=== PATIENT | male | born 1960 | race Caucasian/White ===

== ENCOUNTER 2019-01-25 15:55 | Inpatient (IN) | payer MEDICARE, OTHER ==
--- NOTE | 2019-01-25 16:44 | ED Physician Chart ---
ED Chief Complaint/HPI - Patient Information Date Seen:: 01/25/19 Time Seen:: 16:30 Chief Complaint:: ventral hernia History of Present Illness:: Patient had surgery last March in [place], [place] ventral hernia. Few months prior to that he had his first surgery for the hernia. The hernia recurred about 3 weeks ago. He has mild pain present. No vomiting or diarrhea. Allergies:: Allergies Allergy/AdvReac Type Severity Reaction Status Date / Time No Known Allergies Allergy Verified 01/25/19 16:08 Vitals:: Vital Signs - 8 hr 01/25/19 16:11 Temp 98 F HR 77 RR 16 O2 Sat % 97 Historian:: Patient Review:: Nurse's Note Reviewed ED Review of Systems - Review of Systems General/Constitutional: No fever, No chills Skin: No skin lesions Head: No headache Eyes: No loss of vision ENT: No earache Neck: No neck pain Cardio Vascular: No chest pain Pulmonary: No SOB GI: No nausea, No vomiting, No diarrhea, Pain Musculoskeletal: No bone or joint pain Endocrine: No polyuria Psychiatric: No prior psych history Hematopoietic: No bruising Allergic/Immuno: No urticaria ED Past Medical History - Past Medical History Past Medical History: Other (Hepatitis C) Psychiatricy History: None Medication: Reviewed Family Medical History - Family Member Mother History Unknown: Yes ED Physical Exam - Physical Examination General/Constitutional: Awake, Well-developed, well-nourished, Alert, No distress Head: Atraumatic Eyes: Lids, conjuctiva normal, PERRL Other Skin comments:: Supraumbilical pink scar ENMT: External ears, nose nl, TM canals nl, Nasal exam nl, Lips, teeth, gums nl , Oropharynx nl, Tonsils nl Neck: No nuchal rigidity Respiratory: Nl effort/Exclusion Other Respiratory comments:: Harsh prolonged inspiratory/expiratory breath sounds. Cardio Vascular: RRR, No murmur, gallop, rubs Other GI comments:: About 25 cm wide by 10 cm high ventral hernia centered at level umbilicus. : No CVA tenderness Extremities: Normal digits & nails Neuro/Psych: No focal deficits Misc: No paraspinal tenderness ED Labs/Radiology/EKG Results - Lab Results Results: Laboratory Results WBC 3.6 Th/cmm (4.8-10.8) L 01/25/19 17:00 RBC 3.37 Mil/cmm (4.30-5.70) L 01/25/19 17:00 Hgb 7.8 gm/dL (12-16) L* 01/25/19 17:00 Hct 24.3 % (41.0-60) L 01/25/19 17:00 MCV 71.9 fl (80-99) L 01/25/19 17:00 MCH 23.0 pg (26.0-30.0) L 01/25/19 17:00 MCHC Differential 32.0 pg (28.0-36.0) 01/25/19 17:00 RDW 17.6 % (11.5-20.0) 01/25/19 17:00 Plt Count 77 Th/cmm (150-400) L 01/25/19 17:00 MPV 8.0 fl 01/25/19 17:00 Add Manual Diff YES 01/25/19 17:00 PT 12.1 SECONDS (9.5-11.5) H 01/25/19 17:00 INR 1.17 (0.5-1.4) 01/25/19 17:00 PTT (Actin FS) 27.1 SECONDS (26.0-38.0) 01/25/19 17:00 Sodium 138 mEq/L (136-145) 01/25/19 17:00 Potassium 3.7 mEq/L (3.5-5.1) 01/25/19 17:00 Chloride 108 mEq/L (98-107) H 01/25/19 17:00 Carbon Dioxide 24.1 mEq/L (21.0-31.0) 01/25/19 17:00 Anion Gap 9.6 (7.0-16.0) 01/25/19 17:00 BUN 15 mg/dL (7-25) 01/25/19 17:00 Creatinine 0.7 mg/dL (0.7-1.3) 01/25/19 17:00 Est GFR ( Amer) > 60.0 ml/min (>90) 01/25/19 17:00 Est GFR (Non-Af Amer) > 60.0 ml/min 01/25/19 17:00 BUN/Creatinine Ratio 21.4 01/25/19 17:00 Glucose 106 mg/dL (70-105) H 01/25/19 17:00 Calcium 8.8 mg/dL (8.6-10.3) 01/25/19 17:00 Total Bilirubin 0.7 mg/dL (0.3-1.0) 01/25/19 17:00 Direct Bilirubin 0.37 mg/dL (0.0-0.2) H 01/25/19 17:00 AST 40 U/L (13-39) H 01/25/19 17:00 ALT 36 U/L (7-52) 01/25/19 17:00 Alkaline Phosphatase 124 U/L (34-104) H 01/25/19 17:00 Total Protein 6.5 gm/dL (6.0-8.3) 01/25/19 17:00 Albumin 3.3 gm/dL (4.2-5.5) L 01/25/19 17:00 Globulin 3.2 gm/dL 01/25/19 17:00 Albumin/Globulin Ratio 1.0 (1.0-1.8) 01/25/19 17:00 - Radiology Results Results: Respiratory showed cardiomegaly and increased interstitial markings ED Assessment - Assessment General Assessment: Patient's pancytopenia is probably secondary to his hepatitis C with cirrhosis. ED Septic Shock - . Is Septic Shock (SBP<90, OR Lactate>4 mmol\L) present?: No - <6hrs of presentation: Vital Signs: Vital Signs - 8 hr 01/25/19 16:11 Temp 98 F HR 77 RR 16 O2 Sat % 97 ED Reassessment (Disposition) - Reassessment Reassessment Condition:: Unchanged - Diagnosis Diagnosis:: Ventral hernia; pancytopenia; history of hepatitis C; COPD - Patient Disposition Admitted to:: Med/Surg Spoke to:: Miladys Medrano Admitting Medical Physician:: Miladys Medrano Condition at Disposition:: Stable, Unchanged
[2019-01-25 17:10] LABS: BASOPHILE ABSOLUTE 0.3 Th/cumm (0-0.2); EOSINOPHILE ABSOLUTE 0.2 Th/cmm (0.1-0.4); HEMATOCRIT 24.3 % (41.0-60); LYMPHOCYTE ABSOLUTE 0.7 Th/cmm (1.5-3.0); MEAN CELL VOLUME 71.9 fl (80-99); MONOCYTE ABSOLUTE 0.3 Th/cmm (0.3-1.0); NEUTROPHILE ABSOLUTE 2.1 Th/cmm (1.8-8.0); PLATELET COUNT 77 Th/cmm (150-400); RED BLOOD COUNT 3.37 Mil/cmm (4.30-5.70); RED CELL DISTRIBUTION WIDTH 17.6 % (11.5-20.0)
[2019-01-25 17:20] LABS: INR 1.17 (0.5-1.4)
[2019-01-25 17:25] LABS: ALBUMIN 3.3 gm/dL (4.2-5.5); ALKALINE PHOSPHATASE 124 U/L (34-104); ANION GAP 9.6 (7.0-16.0); BILIRUBIN,DIRECT 0.37 mg/dL (0.0-0.2); BILIRUBIN,TOTAL 0.7 mg/dL (0.3-1.0); BUN - UREA NITROGEN 15 mg/dL (7-25); CALCIUM SERUM 8.8 mg/dL (8.6-10.3); CARBON DIOXIDE 24.1 mEq/L (21.0-31.0); CHLORIDE 108 mEq/L (98-107); CREATININE - SERUM 0.7 mg/dL (0.7-1.3); GFR AFRICAN-AMERICAN > 60.0 ml/min (>90); GFR NON AFRICAN-AMERICAN > 60.0 ml/min; GLUCOSE 106 mg/dL (70-105); POTASSIUM SERUM 3.7 mEq/L (3.5-5.1); SGOT 40 U/L (13-39); SGPT/ALT 36 U/L (7-52); SODIUM SERUM 138 mEq/L (136-145); TOTAL PROTEIN,SERUM 6.5 gm/dL (6.0-8.3)
[2019-01-25 17:36] LABS: HEMOGLOBIN 7.8 gm/dL (12-16); WHITE BLOOD COUNT 3.6 Th/cmm (4.8-10.8)
[2019-01-25 18:10] LABS: BASOPHIL 1 % (0-3); EOSINOPHIL 2 % (0-5); LYMPHOCYTE 26 % (20-50); MONOCYTE 8 % (2-10); NEUTROPHILS 63 % (40-80)
[2019-01-25 18:11] LABS: ANISOCYTOSIS 1+; PLATELET ESTIMATE DECREASED PLATELETS (NORMAL); POIKILOCYTOSIS 1+
[2019-01-25] MEDS: D5-0.45NS 1,000 ML IV SCH (20:39)
[2019-01-25 23:39] VITALS: BP 162/87
--- NOTE | 2019-01-25 23:45 | Consultation ---
DATE OF CONSULTATION: 01/25/2019 SURGICAL CONSULTATION TIME: 11:31 p.m. HISTORY OF PRESENT ILLNESS: The patient is a 58-year-old male, reportedly had surgery done last March in [place], [place] for ventral hernia repair with mesh. A few months prior to that, he had his first surgery for the hernia, recurred about 3 weeks ago. He is having mild abdominal pain. He denies any vomiting or diarrhea or constipation or fevers or chills. As part of his workup, he has a large ventral hernia. PAST MEDICAL HISTORY: Significant for hepatitis C, liver cirrhosis with pancytopenia. He has leukopenia, anemia, and thrombocytopenia. His PT is elevated. Surgical consultation is requested by Dr. Medrano regarding the ventral hernias. ALLERGIES: He denies any allergies. REVIEW OF SYSTEMS: He is a poor historian and denies any other review of system issues. He denies any chest pain, shortness of breath or urinary type symptoms. His only complaints are regarding the ventral hernia and some abdominal discomfort. PHYSICAL EXAMINATION: GENERAL: He is 5 feet 11 inches and 160 pounds for a BMI of 22. VITAL SIGNS: He is afebrile. His vital signs are otherwise stable. HEENT AND NECK: Within normal limits. He is disheveled appearing. He has no neck mass, lymphadenopathy, thyromegaly, carotid bruits or JVD. CHEST: Clear to auscultation bilaterally. CARDIOVASCULAR: Regular rhythm and rate. ABDOMEN: Soft. He has a large multilobular ventral hernia. Several adjacent ventral hernias are noted. He has a healed abdominal incision with some crusted debris in the middle. There is no drainage. NEUROVASCULAR AND EXTREMITIES: Otherwise normal. No CVA, flank, or paraspinal tenderness. LABORATORY DATA: His white blood cell count 3.6, H and H is 7.8 and 24, platelet count is 77. His coags: PT is 12.1, INR is 1.17, PTT 27.1. His chloride is 108, glucose 106, total bilirubin 0.7, AST 40, alkaline phosphatase 124, albumin 3.3, lipase 38. MEDICATIONS: Not listed here well. IMPRESSION AND PLAN: The patient with several adjacent ventral hernias with complaints of abdominal pain. His recall of his previous surgeries is very sketchy. He is a poor historian. He has multiple large ventral hernias of the abdomen, they are nontender and reducible. He has no leukocytosis, in fact leukopenia. He has hepatitis C and liver cirrhosis. He is a poor candidate for general anesthesia and surgery and certainly too high risk to perform any type of ventral hernia repair here at [facility] given the limited resources here. I would obtain a CT scan of the abdomen and pelvis to further evaluate and discharge planning, he can certainly follow up in my office as an outpatient to discuss possible surgical options. Because of his liver cirrhosis, probably would recommend a tertiary care center if surgery was to be even entertained. JOB# [id number]
[2019-01-26 05:41] LABS: BASOPHILE ABSOLUTE 0.4 Th/cumm (0-0.2); EOSINOPHILE ABSOLUTE 0.2 Th/cmm (0.1-0.4); HEMATOCRIT 24.9 % (41.0-60); LYMPHOCYTE ABSOLUTE 0.7 Th/cmm (1.5-3.0); MEAN CELL VOLUME 71.9 fl (80-99); MEAN CORPUSCULAR HEMOGLOBIN 22.5 pg (26.0-30.0); MEAN CORPUSCULAR HGB CONC 31.3 pg (28.0-36.0); MONOCYTE ABSOLUTE 0.2 Th/cmm (0.3-1.0); PLATELET COUNT 68 Th/cmm (150-400); RED BLOOD COUNT 3.47 Mil/cmm (4.30-5.70); RED CELL DISTRIBUTION WIDTH 17.5 % (11.5-20.0)
[2019-01-26 05:53] LABS: AMYLASE SERUM 32 U/L (29-103); ANION GAP 9.1 (7.0-16.0); BUN - UREA NITROGEN 12 mg/dL (7-25); CALCIUM SERUM 8.5 mg/dL (8.6-10.3); CHLORIDE 107 mEq/L (98-107); CREATININE - SERUM 0.7 mg/dL (0.7-1.3); GFR AFRICAN-AMERICAN > 60.0 ml/min (>90); GFR NON AFRICAN-AMERICAN > 60.0 ml/min; GLUCOSE 125 mg/dL (70-105); POTASSIUM SERUM 4.1 mEq/L (3.5-5.1); SODIUM SERUM 134 mEq/L (136-145)
[2019-01-26 06:24] LABS: % BASOPHILS 10.7 % (0.0-2.0); HEMOGLOBIN 7.8 gm/dL (12-16); WHITE BLOOD COUNT 3.5 Th/cmm (4.8-10.8)
[2019-01-26 07:51] LABS: BAND NEUTROPHILE 4 % (0-10); BASOPHIL 0 % (0-3); EOSINOPHIL 2 % (0-5); LYMPHOCYTE 24 % (20-50); MONOCYTE 6 % (2-10); NEUTROPHILS 64 % (40-80)
[2019-01-26 07:53] LABS: PLATELET ESTIMATE DECREASED PLATELETS (NORMAL)
--- NOTE | 2019-01-26 08:55 | Diagnostic Imaging Report ---
CT scan abdomen and pelvis without intravenous contrast HISTORY: Ventral hernia, pain Total DLP equals 1111 CTDI equals 20.2 Axial sections were obtained from the xiphoid process down to the pubic symphysis. The heart appears enlarged. Coronary artery and atherosclerotic vascular calcination seen. There is a small amount of diffuse ascites throughout the abdomen and pelvis. The liver exhibits a markedly irregular contour. No focal lesions. The spleen is enlarged. Findings consistent with cirrhosis. No definite focal amenities seen within the pancreas. There is a punctate intraluminal calcification in the gallbladder consistent with cholelithiasis. No focal renal lesions. No hydronephrosis. There is an approximate 4.5 cm defect within the anterior abdominal wall with diastases of the rectus abdominal muscles. Associated herniation of nondilated bowel. No abnormal soft tissue masses seen within the pelvis. Small amount of ascites. Surgical changes seen within the inguinal areas bilaterally. IMPRESSION: 1. Relatively large ventral hernia associated with nondilated bowel. No evidence of obstruction. 2. Irregular hepatic contour with splenomegaly and ascites consistent with changes of cirrhosis 3. Cardiomegaly with coronary artery and atherosclerotic calcification.
--- NOTE | 2019-01-26 09:06 | Diagnostic Imaging Report ---
Portable chest x-ray HISTORY: Cough, preoperative There is a poor inspiration. The heart appears somewhat generous. Generalized accentuation of interstitial markings particularly in the left lung. However, no focal processes are seen. No hilar or mediastinal abnormalities. IMPRESSION: 1. Accentuation of the interstitial lung markings. However, no definite acute focal processes are seen. 2. Suggestion of a somewhat generous heart size.
--- NOTE | 2019-01-26 10:06 | History and Physical ---
History of Present Illness - HPI Chief Complaint: 58 y/o male patient was brought into ER due to Abdominal pain and Cough. HPI: 58 y/o male patient was admitted to [facility] due to Abdominal pain and Cough Patient has history of having Ventral Hernia Repair surgery last March 2018, He also has history of Hepatitis C, Liver Cirrhosis with Pancytopenia, Leukopenia, Anemia, Thrombocytopenia. Patient had an ER assessment and a complete workup was done. Patient had a Chest x-ray done which showed Increasing Interstitial markings. Patient also had a CT scan of the abdomen and pelvis which showed Large ventral hernia, Irregular hepatic contour with splenomegaly and ascites consistent with changes of cirrhosis, Cardiomegaly with coronary artery and atherosclerotic condition. Patient was diagnosed with Ventral Hernia, Pancytopenia, History of Hepatitis C with Cirrhosis and COPD. Patient will have a Surgical consultation and I will follow, treat and monitor patient. Patient will continue current treatment plan as ordered. Vital Signs: Last Vital Signs Temp 97.5 F 01/26/19 07:57 Pulse 68 01/26/19 07:57 Resp 18 01/26/19 08:26 BP 145/87 01/26/19 07:57 Pulse Ox 98 01/26/19 07:57 Past Medical History Cardiovascular: Report: No Pertinent Hx Pulmonary: Report: COPD TRIAL [employer] JUDGE: Report: No Pertinent Hx GI: Report: Other (Abdominal pain, Hx of Ventral hernias.) Psych: Report: No Pertinent Hx Musculoskeletal: Report: Other (Abd. Pain.) Rheumatologic: Report: No pertinent Hx Infectious Disease: Report: No Pertinent Hx Endocrine: Report: No Pertinent Hx Dermatology: Report: No Pertinent Hx - Past Surgical History Past Surgical History: Other (Ventral hernia repair surgery.) Family Medical History - Family Member Mother History Unknown: Yes Social History Smoke: No Alcohol: None Drugs: None Lives: Jail Domestic Violence: Negative Health Maintenance Health Maintenance: Other (Please see chart.) - Medications Home Medications: Home Medication Medication Instructions Recorded Type Albuterol Sulfate 2.5 mg IH Q4H PRN 01/25/19 History Amino Acids/Protein Hydrolys 30 ml PO DAILY 01/25/19 History [Pro-Stat Sugar Free Awc 887 ml] Ascorbic Acid [Vitamin C] 1 tab PO BID 01/25/19 History Folic Acid [Folate*] 1 mg PO DAILY 01/25/19 History Furosemide [Lasix] 40 mg PO BID 01/25/19 History Ibuprofen [Motrin*] 600 mg PO Q6H PRN 01/25/19 History Lactobacillus Rhamnosus GG 1 each PO DAILY 01/25/19 History [Culturelle Kids] Lactulose 30 ml PO BID 01/25/19 History Magnesium Oxide [Mag-Oxide] 400 mg PO DAILY 01/25/19 History Melatonin 6 mg PO HS 01/25/19 History Multivit-Min/Iron Fum/Folic AC 1 tab PO DAILY 01/25/19 History [Olqmc-Npsarcu-Zqtyphkw Tablet] Oxycodone HCl 5 mg PO Q6H PRN 01/25/19 History Pantoprazole Sodium 40 mg PO BID 01/25/19 History Propranolol HCl [Inderal*] 10 mg PO BID 01/25/19 History Spironolactone 50 mg PO DAILY 01/25/19 History Thiamine HCl 100 mg PO DAILY 01/25/19 History Zinc Gluconate 220 mg PO DAILY 01/25/19 History Other Medications: Please see medication reconciliation sheet. - Allergies Allergies/Adverse Reactions: Allergies Allergy/AdvReac Type Severity Reaction Status Date / Time No Known Allergies Allergy Verified 01/25/19 16:08 Review of Systems - Review of Systems Review of Systems: Patient c/o cough and abdominal pain. Constitutional: Report: No Significant Eyes: Report: No Significant ENT: Report: No Significant Respiratory: Report: Cough Cardiovascular: Report: Other (Cardiomegaly.) Gastrointestinal: Report: Abdominal Pain, Other (Hx of Ventral Hernias.) Musculoskeletal: Report: No Significant Skin: Report: No Significant Neurological: Report: No Significant Physical Exam - Physical Exam HEENT: Report: Ears Nose Throat within normal limits Neck: Report: Within normal limits Cardiovascular Systems: Report: +s1/s2 noted Respiratory: Report: Other (Cough.) Abdomen: Report: Tender to palpation, Other (Hx of Ventral Hernias.) Back: Report: Inspection of back is within normal limits. Extremities: Report: Non-tender to palpation. Skin: Report: Color of skin is within normal limits Neuro/Psych: Report: Mood affect is within normal limits - Lab Results All Lab Results last 24 hours: Laboratory Results - last 24 hr 01/25/19 01/25/19 01/25/19 17:00 17:00 17:00 WBC 3.6 L RBC 3.37 L Hgb 7.8 L* Hct 24.3 L MCV 71.9 L MCH 23.0 L MCHC Differential 32.0 RDW 17.6 Plt Count 77 L MPV 8.0 Add Manual Diff YES Band Neutrophils % Basophils % Neutrophils (Manual) 63 Lymphocytes 26 Monocytes 8 Eosinophils 2 Basophils 1 Platelet Estimate DECREASED PLATELETS Poikilocytosis 1+ Anisocytosis 1+ Microcytosis 1+ RBC Morph Micro Appear ABNORMAL PT 12.1 H INR 1.17 PTT (Actin FS) 27.1 Sodium 138 Potassium 3.7 Chloride 108 H Carbon Dioxide 24.1 Anion Gap 9.6 BUN 15 Creatinine 0.7 Est GFR ( Amer) > 60.0 Est GFR (Non-Af Amer) > 60.0 BUN/Creatinine Ratio 21.4 Glucose 106 H Whole Bld Lactic Acid Calcium 8.8 Total Bilirubin 0.7 Direct Bilirubin 0.37 H AST 40 H ALT 36 Alkaline Phosphatase 124 H Total Protein 6.5 Albumin 3.3 L Globulin 3.2 Albumin/Globulin Ratio 1.0 Amylase Lipase TSH Blood Type Antibody Screen Crossmatch 01/25/19 01/25/19 01/25/19 17:00 17:00 20:00 WBC RBC Hgb Hct MCV MCH MCHC Differential RDW Plt Count MPV Add Manual Diff Band Neutrophils % Basophils % Neutrophils (Manual) Lymphocytes Monocytes Eosinophils Basophils Platelet Estimate Poikilocytosis Anisocytosis Microcytosis RBC Morph Micro Appear PT INR PTT (Actin FS) Sodium Potassium Chloride Carbon Dioxide Anion Gap BUN Creatinine Est GFR ( Amer) Est GFR (Non-Af Amer) BUN/Creatinine Ratio Glucose Whole Bld Lactic Acid 0.69 Calcium Total Bilirubin Direct Bilirubin AST ALT Alkaline Phosphatase Total Protein Albumin Globulin Albumin/Globulin Ratio Amylase Lipase 38 TSH Blood Type O NEGATIVE Antibody Screen POSITIVE Crossmatch See Detail 01/26/19 01/26/19 01/26/19 05:30 05:30 05:30 WBC 3.5 L RBC 3.47 L Hgb 7.8 L* Hct 24.9 L MCV 71.9 L MCH 22.5 L MCHC Differential 31.3 RDW 17.5 Plt Count 68 L MPV 8.3 Add Manual Diff YES Band Neutrophils % 4 Basophils % 10.7 H Neutrophils (Manual) 64 Lymphocytes 24 Monocytes 6 Eosinophils 2 Basophils 0 Platelet Estimate DECREASED PLATELETS Poikilocytosis Anisocytosis Microcytosis 3+ RBC Morph Micro Appear PT INR PTT (Actin FS) Sodium 134 L Potassium 4.1 Chloride 107 Carbon Dioxide 22.0 Anion Gap 9.1 BUN 12 Creatinine 0.7 Est GFR ( Amer) > 60.0 Est GFR (Non-Af Amer) > 60.0 BUN/Creatinine Ratio 17.1 Glucose 125 H Whole Bld Lactic Acid Calcium 8.5 L Total Bilirubin Direct Bilirubin AST ALT Alkaline Phosphatase Total Protein Albumin Globulin Albumin/Globulin Ratio Amylase 32 Lipase TSH 0.74 Blood Type Antibody Screen Crossmatch - Assessment Assessment: Ventral Hernia. Pancytopenia. History of Hepatitis C with Cirrhosis. COPD. Leukopenia. Anemia. Thrombocytopenia. - Plan Plan: Continuation of care. Surgical consult. Monitor Labs. Continue present meds as directed. Respiratory treatments and Pulmonary support prn. Supplemental Oxygen prn. Aspiration precaution. Deep suctioning prn. Monitor Diet/Nutritional support. Pain Management. Physical therapy. Occupational therapy. Safety precaution. Supportive care. Fall precaution, frequent nursing rounds, and as needed restraints to prevent fall. Continue collaborating with consulting specialists, case management and nursing team. Will Monitor patient and continue current treatment plan as ordered.
--- NOTE | 2019-01-26 17:33 | Consultation ---
DATE OF CONSULTATION: HEMATOLOGY ONCOLOGY CONSULTATION REFERRING PHYSICIAN: Dr. Medrano. REASON FOR CONSULTATION: Pancytopenia. HISTORY OF PRESENT ILLNESS: The patient is a 58-year-old male with history of hepatitis C and cirrhosis. He presented to the hospital with cough and abdominal pain. He had a history of multiple abdominal hernias and had surgery in the past, he was evaluated by surgeon and underwent CT scan, the report of which is pending. The patient was found to have anemia and undergoing transfusion of 1 unit of packed red blood cells. He denied history of bleeding. PAST MEDICAL HISTORY: COPD and recurrent abdominal pain and hernia. PAST SURGICAL HISTORY: Hernia surgeries. MEDICATIONS AT HOME: OxyContin, pantoprazole, propranolol, Aldactone, thiamine and zinc. PHYSICAL EXAMINATION: GENERAL: The patient is awake, chronically ill looking. VITAL SIGNS: Temperature 98, blood pressure 118/85, pulse 68, respiratory rate 18, saturation 97% on room air. HEENT: No mucosal lesions. NECK: Supple. CHEST: Good air entry with scattered rhonchi. ABDOMEN: Multiple hernias and scars of previous surgery. The hernias are reducible. EXTREMITIES: Unremarkable. LABORATORY DATA: Hemoglobin 7.8, white count 3.5, platelets 68 with 64% neutrophils. INR and PTT are normal. Creatinine 0.7, bilirubin 0.7, albumin 3.3. Amylase and lipase normal. ASSESSMENT: Pancytopenia most likely secondary to chronic hepatitis C and cirrhosis associated with splenomegaly. The CT scan of the abdomen without contrast was noted reporting ____ with splenomegaly and ascites consistent with cirrhosis. I will obtain the anemia workup. The patient was already transfused. He is high risk for bleeding from the GI tract from esophageal or gastric varices or other etiologies. No additional transfusion is needed. The patient is high risk for surgery. Thank you Dr. Medrano for the opportunity to participate in the care of this interesting case with you. JOB# [id number]
[2019-01-26 20:07] LABS: URINE SOURCE RANDOM
[2019-01-26] MEDS ORDERED: ALBUTEROL SULFATE 2.5 MG IH PRN (20:13)
[2019-01-26 20:19] LABS: URINE BILIRUBIN NEGATIVE (NEGATIVE); URINE BLOOD NEGATIVE (NEGATIVE); URINE GLUCOSE (UA) NEGATIVE (NEGATIVE); URINE KETONE NEGATIVE (NEGATIVE); URINE LEUKOCYTE ESTERASE NEGATIVE (NEGATIVE); URINE NITRATE NEGATIVE (NEGATIVE); URINE PH 5.5 (4.6 - 8.0); URINE PROTEIN NEGATIVE (NEGATIVE)
[2019-01-26 20:23] LABS: URINE CLARITY CLEAR (CLEAR); URINE COLOR YELLOW
[2019-01-26 20:24] LABS: URINE MICROSCOPIC INDICATED? YES
[2019-01-26 20:40] LABS: URINE BACTERIA 1+ /hpf (NONE SEEN); URINE EPITHELIAL CELLS NONE SEEN /lpf (FEW); URINE RBC NONE SEEN /hpf (0-5); URINE WBC NONE SEEN /hpf (0-5)
[2019-01-26] MEDS ORDERED: Non-Formulary Item 1 EA (Melatonin [Melatonin] 6 MG) PO SCH (21:00)
--- NOTE | 2019-01-26 23:08 | Progress Notes ---
DATE: 01/26/2019 SURGICAL PROGRESS NOTE TIME: 10:56 p.m. SUBJECTIVE: The patient is resting in bed, comfortably sleeping. No significant abdominal pain through most of the day, passing flatus. PHYSICAL EXAMINATION: GENERAL: He is afebrile. VITAL SIGNS: Otherwise stable. HEENT AND NECK: Within normal limits. CHEST: Clear to auscultation bilaterally. HEART: Regular rhythm and rate. ABDOMEN: Soft. It is nontender. He has multiple ventral hernias that are reducible and nontender. NEUROVASCULAR AND EXTREMITIES: Otherwise normal. LABORATORY DATA: His white blood cell count today is 3.5, H and H is 7.8 and 24.9, and platelet count 68. His sodium is 134, glucose 125. MEDICATIONS: He is on folic acid, Lasix. Started on diet, tolerating this well. His CT abdomen and pelvis performed last night late reveals liver exhibits a markedly irregular contour consistent with liver cirrhosis. Spleen is enlarged. Punctate intraluminal calcifications in the gallbladder consistent with cholelithiasis. A 4.5 cm defect within the anterior abdominal wall with diastasis of the rectus abdominal muscles, associated herniation of nondilated bowel. Small amount of ascites, surgical changes seen within the inguinal areas bilaterally. Impression, relatively large ventral hernia associated with nondilated bowel. No evidence of obstruction, irregular hepatic contour with splenomegaly and ascites consistent with changes of cirrhosis, cardiomegaly with coronary artery and atherosclerotic calcifications. IMPRESSION AND PLAN: The patient has a longstanding multiple ventral hernias. No obstructive pattern at this time, tolerating p.o. diet. The patient is a very poor candidate for general anesthesia and surgery and especially here at [facility] with very limited resources. No plans for surgery at this time. If the patient desires to have this hernia fixed for symptomatic relief, consideration to going to a large [facility] or tertiary care facility that can handle patients with end-stage liver disease. Advance diet as tolerated and discharge planning is probably reasonable from a surgical standpoint. JOB# [id number]
[2019-01-26] MEDS: D5-0.45NS 1,000 ML IV SCH (23:46)
[2019-01-27] MEDS ORDERED: Albuterol Nebulizer 2.5mg/3mL HHN PRN (07:21)
[2019-01-27 08:18] LABS: HEMATOCRIT 28.7 % (41.0-60); HEMOGLOBIN 9.2 gm/dL (12-16); MEAN CELL VOLUME 72.3 fl (80-99); MEAN CORPUSCULAR HEMOGLOBIN 23.1 pg (26.0-30.0); MEAN CORPUSCULAR HGB CONC 31.9 pg (28.0-36.0); PLATELET COUNT 71 Th/cmm (150-400); RED BLOOD COUNT 3.97 Mil/cmm (4.30-5.70)
[2019-01-27] MEDS: Lactulose 10 Gm/15 mL 30mL UDC PO SCH ×2 (08:57→17:12)
[2019-01-27] MEDS: Lactobacillus Rhamnosus GG 15 Billion CFU CAP.SPRINK PO SCH (08:57)
[2019-01-27] MEDS ORDERED: Non-Formulary Item 1 EA (Amino Acids/Protein Hydrolys [Pro-Stat Awc Liquid] 30 ML) PO SCH (09:00)
[2019-01-27] MEDS ORDERED: LACTOBACILLUS RHAMNOSUS GG PO SCH (09:00)
[2019-01-27] MEDS ORDERED: Non-Formulary Item 1 EA (Lactulose [Lactulose] 30 ML) PO SCH (09:00)
[2019-01-27] MEDS ORDERED: ASCORBIC ACID PO SCH (09:00)
[2019-01-27 09:15] LABS: WHITE BLOOD COUNT 3.7 Th/cmm (4.8-10.8)
[2019-01-27 10:34] LABS: BAND NEUTROPHILE 0 % (0-10); LYMPHOCYTE 21 % (20-50); MONOCYTE 8 % (2-10); NEUTROPHILS 68 % (40-80)
[2019-01-27 10:35] LABS: BASOPHIL 0 % (0-3); EOSINOPHIL 3 % (0-5); PLATELET ESTIMATE DECREASED PLATELETS (NORMAL)
[2019-01-27 13:06] LABS: FOLIC ACID 12.5 ng/mL (>3.0)
--- NOTE | 2019-01-27 16:11 | General Progress Note ---
Objective - Results Result Diagrams: 01/27/19 08:00 01/26/19 05:30 Recent Labs: Laboratory Last Values WBC 3.7 Th/cmm (4.8-10.8) L 01/27/19 08:00 RBC 3.97 Mil/cmm (4.30-5.70) L 01/27/19 08:00 Hgb 9.2 gm/dL (12-16) L 01/27/19 08:00 Hct 28.7 % (41.0-60) L 01/27/19 08:00 MCV 72.3 fl (80-99) L 01/27/19 08:00 MCH 23.1 pg (26.0-30.0) L 01/27/19 08:00 MCHC Differential 31.9 pg (28.0-36.0) 01/27/19 08:00 RDW 18.0 % (11.5-20.0) 01/27/19 08:00 Plt Count 71 Th/cmm (150-400) L 01/27/19 08:00 MPV 8.1 fl 01/27/19 08:00 Add Manual Diff YES 01/27/19 08:00 Neutrophils % ADULT MANAGER 01/27/19 08:00 Band Neutrophils % 0 % (0-10) 01/27/19 08:00 Lymphocytes % ADULT MANAGER 01/27/19 08:00 Monocytes % ADULT MANAGER 01/27/19 08:00 Eosinophils % ADULT MANAGER 01/27/19 08:00 Basophils % ADULT MANAGER 01/27/19 08:00 Neutrophils (Manual) 68 % (40-80) 01/27/19 08:00 Lymphocytes 21 % (20-50) 01/27/19 08:00 Monocytes 8 % (2-10) 01/27/19 08:00 Eosinophils 3 % (0-5) 01/27/19 08:00 Basophils 0 % (0-3) 01/27/19 08:00 Platelet Estimate DECREASED PLATELETS (NORMAL) 01/27/19 08:00 Poikilocytosis 1+ 01/25/19 17:00 Anisocytosis 1+ 01/25/19 17:00 Microcytosis 3+ 01/26/19 05:30 RBC Morph Micro Appear ABNORMAL (NORMAL) 01/25/19 17:00 PT 12.1 SECONDS (9.5-11.5) H 01/25/19 17:00 INR 1.17 (0.5-1.4) 01/25/19 17:00 PTT (Actin FS) 27.1 SECONDS (26.0-38.0) 01/25/19 17:00 Sodium 134 mEq/L (136-145) L 01/26/19 05:30 Potassium 4.1 mEq/L (3.5-5.1) 01/26/19 05:30 Chloride 107 mEq/L (98-107) 01/26/19 05:30 Carbon Dioxide 22.0 mEq/L (21.0-31.0) 01/26/19 05:30 Anion Gap 9.1 (7.0-16.0) 01/26/19 05:30 BUN 12 mg/dL (7-25) 01/26/19 05:30 Creatinine 0.7 mg/dL (0.7-1.3) 01/26/19 05:30 Est GFR ( Amer) > 60.0 ml/min (>90) 01/26/19 05:30 Est GFR (Non-Af Amer) > 60.0 ml/min 01/26/19 05:30 BUN/Creatinine Ratio 17.1 01/26/19 05:30 Glucose 125 mg/dL (70-105) H 01/26/19 05:30 Whole Bld Lactic Acid 0.69 mmol/L (0.60-1.99) 01/25/19 17:00 Calcium 8.5 mg/dL (8.6-10.3) L 01/26/19 05:30 Ferritin 8 ng/mL (30-400) L 01/26/19 15:00 Total Bilirubin 0.7 mg/dL (0.3-1.0) 01/25/19 17:00 Direct Bilirubin 0.37 mg/dL (0.0-0.2) H 01/25/19 17:00 AST 40 U/L (13-39) H 01/25/19 17:00 ALT 36 U/L (7-52) 01/25/19 17:00 Alkaline Phosphatase 124 U/L (34-104) H 01/25/19 17:00 Total Protein 6.5 gm/dL (6.0-8.3) 01/25/19 17:00 Albumin 3.3 gm/dL (4.2-5.5) L 01/25/19 17:00 Globulin 3.2 gm/dL 01/25/19 17:00 Albumin/Globulin Ratio 1.0 (1.0-1.8) 01/25/19 17:00 Amylase 32 U/L (29-103) 01/26/19 05:30 Lipase 38 U/L (11-82) 01/25/19 17:00 Vitamin B12 1189 pg/mL (232-1245) 01/26/19 15:00 Folic Acid 12.5 ng/mL (>3.0) 01/26/19 15:00 TSH 0.74 uIU/ml (0.34-5.60) 01/26/19 05:30 Urine Source RANDOM 01/26/19 19:00 Urine Color YELLOW 01/26/19 19:00 Urine Clarity CLEAR (CLEAR) 01/26/19 19:00 Urine pH 5.5 (4.6 - 8.0) 01/26/19 19:00 Ur Specific [place] 1.020 (1.005-1.030) 01/26/19 19:00 Urine Protein NEGATIVE mg/dL (NEGATIVE) 01/26/19 19:00 Urine Glucose (UA) NEGATIVE mg/dL (NEGATIVE) 01/26/19 19:00 Urine Ketones NEGATIVE mg/dL (NEGATIVE) 01/26/19 19:00 Urine Blood NEGATIVE (NEGATIVE) 01/26/19 19:00 Urine Nitrate NEGATIVE (NEGATIVE) 01/26/19 19:00 Urine Bilirubin NEGATIVE (NEGATIVE) 01/26/19 19:00 Urine Urobilinogen 1.0 E.U./dL (0.2 - 1.0) 01/26/19 19:00 Ur Leukocyte Esterase NEGATIVE (NEGATIVE) 01/26/19 19:00 Urine RBC NONE SEEN /hpf (0-5) 01/26/19 19:00 Urine WBC NONE SEEN /hpf (0-5) 01/26/19 19:00 Ur Epithelial Cells NONE SEEN /lpf (FEW) 01/26/19 19:00 Urine Bacteria 1+ /hpf (NONE SEEN) H 01/26/19 19:00 Blood Type O NEGATIVE 01/25/19 20:00 Antibody Screen POSITIVE 01/25/19 20:00 Antibody Identification Anti-D 01/25/19 20:00 Crossmatch See Detail 01/25/19 20:00 - Physical Exam Vitals and I&O: Vital Signs Temp 97.8 F 01/27/19 12:00 Pulse 76 01/27/19 12:00 Resp 17 01/27/19 12:00 BP 134/80 01/27/19 12:00 Pulse Ox 99 01/27/19 12:00 Intake & Output 01/26/19 01/27/19 01/27/19 18:59 06:59 18:59 Intake Total 1200 400 Output Total 1550 Balance 1200 -1150 Weight (lbs) 80.286 kg 80.286 kg Intake: Intake, IV Amount 1000 D5-0.45NS 1,000 ml @ 50 1000 mls/hr IV .Q20H [facility] Rx#: [id number] Oral 200 400 Output: Urine 1550 Other: # Voids 1 # Bowel Movements 1 Weight Source Bedscale Bedscale Active Medications: Current Medications Albuterol Sulfate (Albuterol 2.5mg/3ml Neb Ud) 2.5 mg HHN Q4HRT PRN PRN Reason: Shortness of Breath Stop: 03/28/19 07:20 Ascorbic Acid (Vitamin C) 500 mg PO BID [facility] Stop: 03/28/19 08:59 Last Admin: 01/27/19 08:57 Dose: 500 mg Folic Acid (Folate) 1 mg PO DAILY [facility] Stop: 03/28/19 08:59 Last Admin: 01/27/19 08:57 Dose: 1 mg Furosemide (Lasix) 40 mg PO BID [facility] Stop: 03/28/19 08:59 Last Admin: 01/27/19 08:57 Dose: 40 mg Dextrose/Sodium Chloride (D5-0.45ns) 1,000 mls @ 50 mls/hr IV .Q20H [facility] Stop: 03/26/19 19:53 Last Admin: 01/26/19 23:46 Dose: 50 mls/hr Ibuprofen (Motrin) 600 mg PO Q6H PRN PRN Reason: Pain (Mild) Stop: 03/27/19 20:12 Lactobacillus Rhamnosus (Culturelle 15b) 1 each PO DAILY [facility] Stop: 03/28/19 08:59 Last Admin: 01/27/19 08:57 Dose: 1 each Lactulose (Cephulac) 20 gm PO BID [facility] Stop: 03/28/19 08:59 Last Admin: 01/27/19 08:57 Dose: 20 gm Magnesium Oxide (Mag-Oxide) 400 mg PO DAILY [facility] Stop: 03/28/19 08:59 Last Admin: 01/27/19 08:58 Dose: 400 mg Morphine Sulfate (Morphine) 1 mg IVP Q4HR PRN PRN Reason: Pain (Moderate) Stop: 03/26/19 23:58 Assessment/Plan - Assessment Assessment: Ventral Hernia. Pancytopenia. History of Hepatitis C with Cirrhosis. COPD. Leukopenia. Anemia. Thrombocytopenia. - Plan Plan: Continuation of care. Surgical consult. Monitor Labs. Continue present meds as directed. Respiratory treatments and Pulmonary support prn. Supplemental Oxygen prn. Aspiration precaution. Deep suctioning prn. Monitor Diet/Nutritional support. Pain Management. Physical therapy. Occupational therapy. Safety precaution. Supportive care. Fall precaution, frequent nursing rounds, and as needed restraints to prevent fall. Continue collaborating with consulting specialists, case management and nursing team. Will Monitor patient and continue current treatment plan as ordered. Nutritional Asmnt/Malnutr-PDOC - Dietary Evaluation Malnutrition Findings (Please click <Entered> for more info): Nutritional Asmnt/Malnutrition Start: 01/26/19 14: 50 Text: Status: Complete Freq: Protocol: Document 01/26/19 14:50 SKYLAR (Rec: 01/26/19 14:53 SKYLAR [email or web address]) Nutritional Asmnt/Malnutrition Patient General Information Nutritional Screening High Risk Diagnosis Pancytopenia, ventral hernia Pertinent Medical Hx/Surgical Hx Hepatitis C, Liver Cirrhosis with Pancytopenia, Leukopenia, Anemia, Thrombocytopenia Subjective Information Pt is a 58-year-old male admitted on 01/25 c/o abdominal pain and cough. Pt had surgery for ventral hernia last March 2018. Pt is currently on NPO status since 01/26 midnight d/t Abdomen CT scan. Per [facility] [place], NPO status may remain for today and waiting for blood transfusion today. Unable to assess usual diet at home since Pt was sleeping at time of visit. Per H&P Report, CT scan showed large ventral hernia, irregular hepatic contour with splenomegaly and ascites consistent with changes of cirrhosis, cardiomegaly with coronary artery and atherosclerotic condition. HT: 511 WT: 177 LB (80.45 kg) BMI: 24.68 (Normal) GI: Ventral Hernia, Abdominal pain, soft, Non-Tender, Large, Round, Distended, Ascitic BM: Not noted I/O: 250/1 (249) Skin: WNL, Warm, Dry, Elastic, Intact, Scar on abdomen, past ventral hernia repair Jet: 20 Diet Order: NPO Estimated Energy Needs: (Adult , CBW) 6849-4812 kcals (25-30 kcals/ kg) 64-80 g Pro (0.8-1.0 g/kg) 7731-5781 ml (25-30 ml/kg) Current Diet Order/ Nutrition Support NPO Pertinent Medications D5-0.45ns 1000mls @50mls/hr IV Q20H Pertinent Labs 01/26: Hgb/Hct 7.8/24.9, Na 134, Glucose 125, Ca 8.5 01/25: Hgb/Hct 7.8/24.3, Cl 108, Glucose 106, Alb 3.3 Nutritional Hx/Data Height 1.8 m Height (Calculated Centimeters) 180.3 Current Weight (lbs) 80.286 kg Weight (Calculated Kilograms) 80.3 Weight (Calculated Grams) 47029.8 [place] Body Weight 75.3 kg % [place] Body Weight 106 Body Mass Index (BMI) 24.7 Weight Status Approriate GI Symptoms GI Symptoms None Last BM Not noted Skin Integrity/Comment: WNL, Warm, Dry, Elastic, Intact, Scar on abdomen, past ventral hernia repair Jet: 20 Estimated Nutritional Goals BEE in Kcals: Using Current wt Calories/Kcals/Kg 25-30 Kcals Calculated 0127-4272 Protein: Using Current wt Protein g/k.8-1.0 Protein Calculated 64-80 Fluid: ml 5570-1631 ml (25-30 ml/kg) Nutritional Problem 1. Problem Problem Inadequate energy intake Etiology r/t Abdomen CT scan and pending result Signs/Symptoms: aeb NPO status. Malnutrition Related to Morbid Obesity Malnutrition related to morbid obesity No Intervention/Recommendation Comments 1.Continue with NPO status as medically appropriate. Expected Outcomes/Goals Expected Outcomes/Goals 1.Monitor on NPO status, wt, nutrition related labs, and skin integrity. 2.F/U as high risk in 2-3 days , 01/28-01/29 Physician Parameters for PEM Normal Weight % 90% - 110% (Normal)
[2019-01-27 17:11] LABS: IRON LC 16 ug/dL (38-169); TIBC (LC) 358 ug/dL (250-450); UIBC 342 ug/dL (111-343)
[2019-01-27] MEDS: D5-0.45NS 1,000 ML IV SCH (17:14)
--- NOTE | 2019-01-27 18:44 | Internal Medicine Prog Note ---
Internal Medicine Subjective - Subjective Service Date: 01/27/19 Patient seen and examined:: with staff Patient is:: awake, verbal Patient Complaints of:: other (ventral hernia.) Per staff patient has:: no adverse event, no episodes of fall Internal Medicine Objective - Results Result Diagrams: 01/27/19 08:00 01/26/19 05:30 Recent Labs: Laboratory Last Values WBC 3.7 Th/cmm (4.8-10.8) L 01/27/19 08:00 RBC 3.97 Mil/cmm (4.30-5.70) L 01/27/19 08:00 Hgb 9.2 gm/dL (12-16) L 01/27/19 08:00 Hct 28.7 % (41.0-60) L 01/27/19 08:00 MCV 72.3 fl (80-99) L 01/27/19 08:00 MCH 23.1 pg (26.0-30.0) L 01/27/19 08:00 MCHC Differential 31.9 pg (28.0-36.0) 01/27/19 08:00 RDW 18.0 % (11.5-20.0) 01/27/19 08:00 Plt Count 71 Th/cmm (150-400) L 01/27/19 08:00 MPV 8.1 fl 01/27/19 08:00 Add Manual Diff YES 01/27/19 08:00 Neutrophils % NETWORK DESIGNER 01/27/19 08:00 Band Neutrophils % 0 % (0-10) 01/27/19 08:00 Lymphocytes % NETWORK DESIGNER 01/27/19 08:00 Monocytes % NETWORK DESIGNER 01/27/19 08:00 Eosinophils % NETWORK DESIGNER 01/27/19 08:00 Basophils % NETWORK DESIGNER 01/27/19 08:00 Neutrophils (Manual) 68 % (40-80) 01/27/19 08:00 Lymphocytes 21 % (20-50) 01/27/19 08:00 Monocytes 8 % (2-10) 01/27/19 08:00 Eosinophils 3 % (0-5) 01/27/19 08:00 Basophils 0 % (0-3) 01/27/19 08:00 Platelet Estimate DECREASED PLATELETS (NORMAL) 01/27/19 08:00 Poikilocytosis 1+ 01/25/19 17:00 Anisocytosis 1+ 01/25/19 17:00 Microcytosis 3+ 01/26/19 05:30 RBC Morph Micro Appear ABNORMAL (NORMAL) 01/25/19 17:00 PT 12.1 SECONDS (9.5-11.5) H 01/25/19 17:00 INR 1.17 (0.5-1.4) 01/25/19 17:00 PTT (Actin FS) 27.1 SECONDS (26.0-38.0) 01/25/19 17:00 Sodium 134 mEq/L (136-145) L 01/26/19 05:30 Potassium 4.1 mEq/L (3.5-5.1) 01/26/19 05:30 Chloride 107 mEq/L (98-107) 01/26/19 05:30 Carbon Dioxide 22.0 mEq/L (21.0-31.0) 01/26/19 05:30 Anion Gap 9.1 (7.0-16.0) 01/26/19 05:30 BUN 12 mg/dL (7-25) 01/26/19 05:30 Creatinine 0.7 mg/dL (0.7-1.3) 01/26/19 05:30 Est GFR ( Amer) > 60.0 ml/min (>90) 01/26/19 05:30 Est GFR (Non-Af Amer) > 60.0 ml/min 01/26/19 05:30 BUN/Creatinine Ratio 17.1 01/26/19 05:30 Glucose 125 mg/dL (70-105) H 01/26/19 05:30 Whole Bld Lactic Acid 0.69 mmol/L (0.60-1.99) 01/25/19 17:00 Calcium 8.5 mg/dL (8.6-10.3) L 01/26/19 05:30 Iron 16 ug/dL (38-169) L 01/26/19 15:00 TIBC 358 ug/dL (250-450) 01/26/19 15:00 Iron Saturation 4 % (15-55) L 01/26/19 15:00 Unsaturated IBC 342 ug/dL (111-343) 01/26/19 15:00 Ferritin 8 ng/mL (30-400) L 01/26/19 15:00 Total Bilirubin 0.7 mg/dL (0.3-1.0) 01/25/19 17:00 Direct Bilirubin 0.37 mg/dL (0.0-0.2) H 01/25/19 17:00 AST 40 U/L (13-39) H 01/25/19 17:00 ALT 36 U/L (7-52) 01/25/19 17:00 Alkaline Phosphatase 124 U/L (34-104) H 01/25/19 17:00 Total Protein 6.5 gm/dL (6.0-8.3) 01/25/19 17:00 Albumin 3.3 gm/dL (4.2-5.5) L 01/25/19 17:00 Globulin 3.2 gm/dL 01/25/19 17:00 Albumin/Globulin Ratio 1.0 (1.0-1.8) 01/25/19 17:00 Amylase 32 U/L (29-103) 01/26/19 05:30 Lipase 38 U/L (11-82) 01/25/19 17:00 Vitamin B12 1189 pg/mL (232-1245) 01/26/19 15:00 Folic Acid 12.5 ng/mL (>3.0) 01/26/19 15:00 TSH 0.74 uIU/ml (0.34-5.60) 01/26/19 05:30 Urine Source RANDOM 01/26/19 19:00 Urine Color YELLOW 01/26/19 19:00 Urine Clarity CLEAR (CLEAR) 01/26/19 19:00 Urine pH 5.5 (4.6 - 8.0) 01/26/19 19:00 Ur Specific [place] 1.020 (1.005-1.030) 01/26/19 19:00 Urine Protein NEGATIVE mg/dL (NEGATIVE) 01/26/19 19:00 Urine Glucose (UA) NEGATIVE mg/dL (NEGATIVE) 01/26/19 19:00 Urine Ketones NEGATIVE mg/dL (NEGATIVE) 01/26/19 19:00 Urine Blood NEGATIVE (NEGATIVE) 01/26/19 19:00 Urine Nitrate NEGATIVE (NEGATIVE) 01/26/19 19:00 Urine Bilirubin NEGATIVE (NEGATIVE) 01/26/19 19:00 Urine Urobilinogen 1.0 E.U./dL (0.2 - 1.0) 01/26/19 19:00 Ur Leukocyte Esterase NEGATIVE (NEGATIVE) 01/26/19 19:00 Urine RBC NONE SEEN /hpf (0-5) 01/26/19 19:00 Urine WBC NONE SEEN /hpf (0-5) 01/26/19 19:00 Ur Epithelial Cells NONE SEEN /lpf (FEW) 01/26/19 19:00 Urine Bacteria 1+ /hpf (NONE SEEN) H 01/26/19 19:00 Blood Type O NEGATIVE 01/25/19 20:00 Antibody Screen POSITIVE 01/25/19 20:00 Antibody Identification Anti-D 01/25/19 20:00 Crossmatch See Detail 01/25/19 20:00 - Physical Exam Vitals and I&O: Vital Signs Temp 97.7 F 01/27/19 16:00 Pulse 82 01/27/19 16:00 Resp 17 01/27/19 16:00 BP 87/55 01/27/19 17:12 Pulse Ox 97 01/27/19 16:00 Intake & Output 01/26/19 01/27/19 01/27/19 18:59 06:59 18:59 Intake Total 1200 400 873.333 Output Total 1550 Balance 1200 -1150 873.333 Weight (lbs) 80.286 kg 80.286 kg Intake: Intake, IV Amount 1000 873.333 D5-0.45NS 1,000 ml @ 50 1000 873.333 mls/hr IV .Q20H [facility] Rx#: [id number] Oral 200 400 Output: Urine 1550 Other: # Voids 1 # Bowel Movements 1 Weight Source Bedscale Bedscale Active Medications: Current Medications Albuterol Sulfate (Albuterol 2.5mg/3ml Neb Ud) 2.5 mg HHN Q4HRT PRN PRN Reason: Shortness of Breath Stop: 03/28/19 07:20 Ascorbic Acid (Vitamin C) 500 mg PO BID [facility] Stop: 03/28/19 08:59 Last Admin: 01/27/19 17:14 Dose: 500 mg Folic Acid (Folate) 1 mg PO DAILY [facility] Stop: 03/28/19 08:59 Last Admin: 01/27/19 08:57 Dose: 1 mg Furosemide (Lasix) 40 mg PO BID [facility] Stop: 03/28/19 08:59 Last Admin: 01/27/19 17:12 Dose: Not Given Dextrose/Sodium Chloride (D5-0.45ns) 1,000 mls @ 50 mls/hr IV .Q20H [facility] Stop: 03/26/19 19:53 Last Admin: 01/27/19 17:14 Dose: 50 mls/hr Ibuprofen (Motrin) 600 mg PO Q6H PRN PRN Reason: Pain (Mild) Stop: 03/27/19 20:12 Lactobacillus Rhamnosus (Culturelle 15b) 1 each PO DAILY [facility] Stop: 03/28/19 08:59 Last Admin: 01/27/19 08:57 Dose: 1 each Lactulose (Cephulac) 20 gm PO BID [facility] Stop: 03/28/19 08:59 Last Admin: 01/27/19 17:12 Dose: 20 gm Magnesium Oxide (Mag-Oxide) 400 mg PO DAILY [facility] Stop: 03/28/19 08:59 Last Admin: 01/27/19 08:58 Dose: 400 mg Morphine Sulfate (Morphine) 1 mg IVP Q4HR PRN PRN Reason: Pain (Moderate) Stop: 03/26/19 23:58 Physical Exam: Patient was admitted with Ventral hernia. General: weak HEENT: NC/AT Neck: Supple Lungs: CTAB Cardiovascular: RRR, Normal S1 Abdomen: tender Extremities: clear Neurological: no change Internal Medicine Assmt/Plan - Assessment Assessment: Ventral Hernia. Pancytopenia. History of Hepatitis C with Cirrhosis. COPD. Leukopenia. Anemia. Thrombocytopenia. - Plan Plan: Continuation of care. Monitor Labs, monitor hemoglobin levels. Continue present meds as directed. Respiratory treatments and Pulmonary support prn. Supplemental Oxygen prn. Aspiration precaution. Deep suctioning prn. Monitor Diet/Nutritional support. Pain Management. Physical therapy. Occupational therapy. Safety precaution. Supportive care. Fall precaution, frequent nursing rounds, and as needed restraints to prevent fall. Continue collaborating with consulting specialists, case management and nursing team. Will Monitor patient and continue current treatment plan as ordered. Nutritional Asmnt/Malnutr-PDOC - Dietary Evaluation Malnutrition Findings (Please click <Entered> for more info): Nutritional Asmnt/Malnutrition Start: 01/26/19 14: 50 Text: Status: Complete Freq: Protocol: Document 01/26/19 14:50 SKYLAR (Rec: 01/26/19 14:53 SKYLAR [id number]) Nutritional Asmnt/Malnutrition Patient General Information Nutritional Screening High Risk Diagnosis Pancytopenia, ventral hernia Pertinent Medical Hx/Surgical Hx Hepatitis C, Liver Cirrhosis with Pancytopenia, Leukopenia, Anemia, Thrombocytopenia Subjective Information Pt is a 58-year-old male admitted on 01/25 c/o abdominal pain and cough. Pt had surgery for ventral hernia last March 2018. Pt is currently on NPO status since 01/26 midnight d/t Abdomen CT scan. Per [facility] [place], NPO status may remain for today and waiting for blood transfusion today. Unable to assess usual diet at home since Pt was sleeping at time of visit. Per H&P Report, CT scan showed large ventral hernia, irregular hepatic contour with splenomegaly and ascites consistent with changes of cirrhosis, cardiomegaly with coronary artery and atherosclerotic condition. HT: 511 WT: 177 LB (80.45 kg) BMI: 24.68 (Normal) GI: Ventral Hernia, Abdominal pain, soft, Non-Tender, Large, Round, Distended, Ascitic BM: Not noted I/O: 250/1 (249) Skin: WNL, Warm, Dry, Elastic, Intact, Scar on abdomen, past ventral hernia repair Jet: 20 Diet Order: NPO Estimated Energy Needs: (Adult , CBW) 2042-4802 kcals (25-30 kcals/ kg) 64-80 g Pro (0.8-1.0 g/kg) 2776-6763 ml (25-30 ml/kg) Current Diet Order/ Nutrition Support NPO Pertinent Medications D5-0.45ns 1000mls @50mls/hr IV Q20H Pertinent Labs 01/26: Hgb/Hct 7.8/24.9, Na 134, Glucose 125, Ca 8.5 01/25: Hgb/Hct 7.8/24.3, Cl 108, Glucose 106, Alb 3.3 Nutritional Hx/Data Height 1.8 m Height (Calculated Centimeters) 180.3 Current Weight (lbs) 80.286 kg Weight (Calculated Kilograms) 80.3 Weight (Calculated Grams) 85313.8 [place] Body Weight 75.3 kg % [place] Body Weight 106 Body Mass Index (BMI) 24.7 Weight Status Approriate GI Symptoms GI Symptoms None Last BM Not noted Skin Integrity/Comment: WNL, Warm, Dry, Elastic, Intact, Scar on abdomen, past ventral hernia repair Jet: 20 Estimated Nutritional Goals BEE in Kcals: Using Current wt Calories/Kcals/Kg 25-30 Kcals Calculated 6009-9389 Protein: Using Current wt Protein g/k.8-1.0 Protein Calculated 64-80 Fluid: ml 0073-6631 ml (25-30 ml/kg) Nutritional Problem 1. Problem Problem Inadequate energy intake Etiology r/t Abdomen CT scan and pending result Signs/Symptoms: aeb NPO status. Malnutrition Related to Morbid Obesity Malnutrition related to morbid obesity No Intervention/Recommendation Comments 1.Continue with NPO status as medically appropriate. Expected Outcomes/Goals Expected Outcomes/Goals 1.Monitor on NPO status, wt, nutrition related labs, and skin integrity. 2.F/U as high risk in 2-3 days , 01/28-01/29 Physician Parameters for PEM Normal Weight % 90% - 110% (Normal)
--- NOTE | 2019-01-27 20:45 | Consultation ---
DATE OF CONSULTATION: 01/27/2019 INPATIENT GASTROINTESTINAL CONSULTATION CONSULTING PHYSICIAN: Dr. Medrano. REASON FOR CONSULTATION: Liver cirrhosis, hepatitis C, anemia. HISTORY OF PRESENT ILLNESS: The patient is a 58-year-old male with past medical history significant for hepatitis C and alcohol-related liver cirrhosis, anemia, pancytopenia, ventral hernia, who was admitted to the hospital from a nursing facility for abdominal pain. The patient notes that his pain is mainly in the area of his ventral hernia and was becoming more acute in nature the day prior to his admission. He did not have any vomiting episodes and denies any hematemesis, melena or hematochezia. The pain in the lower abdomen where the hernia is became so severe that he was transferred to the ER here for further evaluation. Thus far, a CT scan was done that shows a ventral hernia and he has been evaluated by Dr. Ingram of Surgery who reports he is a high risk candidate for any type of surgery. Additionally, the patient has been seen by Dr. Richards for pancytopenia and there is a thought that the cirrhosis and splenomegaly are to blame for these issues. At the current time, the patient reports he is feeling better, less abdominal pain, and is able to tolerate a liquid diet. He thinks that he has had upper endoscopy and colonoscopy done before 1-2 years ago at [facility] in [place]. PAST MEDICAL HISTORY: Liver cirrhosis due to alcoholism and hepatitis C, anemia, ventral hernia. PAST SURGICAL HISTORY: Ventral hernia repair in 2018. FAMILY HISTORY: Noncontributory. SOCIAL HISTORY: The patient does still drink a beer on occasion. He used to be a more heavy drinker. Denies other illicit drugs. ALLERGIES: There are no known drug allergies. REVIEW OF SYSTEMS: A 12-point review of systems was performed with the patient's negative and the pertinent positives mentioned in history of present illness. Specifically, he denies any hematemesis, hematochezia or melena. CURRENT MEDICATIONS: Albuterol, vitamin C, IV fluids, folic acid, furosemide, Motrin, lactobacillus, lactulose, magnesium, morphine as needed. PHYSICAL EXAMINATION: VITAL SIGNS: The blood pressure is 134/80, pulse 76 beats per minute, respiratory rate of 17, temperature 97.8, oxygenation is 99%. GENERAL: The patient is lying on his back. He is alert and oriented x 3. He appears anxious. HEENT: Normocephalic, atraumatic appearing head. Pupils are equal and reactive. Extraocular muscles appear to be intact. Moist mucous membranes. NECK: Supple. No JVD or thyromegaly. CHEST: Clear to auscultation bilaterally. CARDIOVASCULAR: S1, S2 are present, regular rate and rhythm. ABDOMEN: There is a protuberance in the ventral area likely a ventral hernia, which is soft, and not tender to palpation at the current time. EXTREMITIES: 1+ pitting edema bilaterally. Pulses are not present. SKIN: There is no jaundice. LABORATORY DATA: White blood cell count 3.7, hemoglobin 9.2, on admission was 7.8, platelet count is 71. INR is 1.1. Sodium is 134, BUN of 12, creatinine 0.7, total bilirubin 0.7, AST 40, ALT is 36. Lipase 38. IMAGING: An abdomen and pelvis CT scan was done that shows a large ventral hernia with nondilated bowel loops. There is cirrhosis of the liver with a small amount of ascites, cardiomegaly, and coronary artery calcification. IMPRESSION: This is a 58-year-old male with history of alcoholism, hepatitis C causing liver cirrhosis, decompensated by ascites, admitted to the hospital with ventral hernia related abdominal pain and anemia. 1. Ventral hernia related abdominal pain. 2. Anemia. 3. Cirrhosis, decompensated by ascites. 4. Alcoholism and hepatitis C. 5. Pancytopenia. DISCUSSION: In terms of the patient's anemia, there is no overt GI bleeding and I do not think the patient is incurring any rapid blood loss. I think his anemia is probably multifactorial, has some root in his splenomegaly, cirrhosis as well as nutritional deficiencies and chronic disease. He reports of already having upper and lower endoscopy 1-2 years ago at [facility] and we can try to obtain these records. He will be very difficult to do another colonoscopy given the large hernia and I do not think it is necessary if he has already had one, as colon cancer would be of low likelihood in that scenario. He should probably have an upper endoscopy, although in the absence of acute bleeding, we can do this in the outpatient setting when he follows up with a warp tension tester. RECOMMENDATIONS: 1. Try to obtain records from his last EGD and colonoscopy, which he notes were 1 or 2 years ago. 2. No plan for endoscopy now unless he shows any overt bleeding as this is likely chronic anemia. 3. The patient will need outpatient followup, that he may be a candidate for hepatitis C treatment and will need on a nonurgent EGD in the outpatient setting. 4. Can advance diet as tolerated. 5. Management of a ventral hernia as per the surgeon. The patient is at high risk with cirrhosis and likely if he would require surgery should be transferred to tertiary center. Thank you for allowing me to participate in his care. I will continue to follow. [facility]# [id number]
[2019-01-28] MEDS: Lactobacillus Rhamnosus GG 15 Billion CFU CAP.SPRINK PO SCH (08:27)
[2019-01-28] MEDS: Lactulose 10 Gm/15 mL 30mL UDC PO SCH ×2 (08:27→16:20)
[2019-01-28] MEDS: D5-0.45NS 1,000 ML IV SCH (08:28)
--- NOTE | 2019-01-28 11:13 | GI Progress Note ---
Subjective - Review of Systems Service Date: 01/28/19 Subjective: No overnight events GI OBJECTIVE - Results Result Diagrams: 01/27/19 08:00 01/26/19 05:30 Recent Labs: Laboratory Last Values WBC 3.7 Th/cmm (4.8-10.8) L 01/27/19 08:00 RBC 3.97 Mil/cmm (4.30-5.70) L 01/27/19 08:00 Hgb 9.2 gm/dL (12-16) L 01/27/19 08:00 Hct 28.7 % (41.0-60) L 01/27/19 08:00 MCV 72.3 fl (80-99) L 01/27/19 08:00 MCH 23.1 pg (26.0-30.0) L 01/27/19 08:00 MCHC Differential 31.9 pg (28.0-36.0) 01/27/19 08:00 RDW 18.0 % (11.5-20.0) 01/27/19 08:00 Plt Count 71 Th/cmm (150-400) L 01/27/19 08:00 MPV 8.1 fl 01/27/19 08:00 Add Manual Diff YES 01/27/19 08:00 Neutrophils % DAIRY EQUIPMENT INSTALLER 01/27/19 08:00 Band Neutrophils % 0 % (0-10) 01/27/19 08:00 Lymphocytes % DAIRY EQUIPMENT INSTALLER 01/27/19 08:00 Monocytes % DAIRY EQUIPMENT INSTALLER 01/27/19 08:00 Eosinophils % DAIRY EQUIPMENT INSTALLER 01/27/19 08:00 Basophils % DAIRY EQUIPMENT INSTALLER 01/27/19 08:00 Neutrophils (Manual) 68 % (40-80) 01/27/19 08:00 Lymphocytes 21 % (20-50) 01/27/19 08:00 Monocytes 8 % (2-10) 01/27/19 08:00 Eosinophils 3 % (0-5) 01/27/19 08:00 Basophils 0 % (0-3) 01/27/19 08:00 Platelet Estimate DECREASED PLATELETS (NORMAL) 01/27/19 08:00 Poikilocytosis 1+ 01/25/19 17:00 Anisocytosis 1+ 01/25/19 17:00 Microcytosis 3+ 01/26/19 05:30 RBC Morph Micro Appear ABNORMAL (NORMAL) 01/25/19 17:00 PT 12.1 SECONDS (9.5-11.5) H 01/25/19 17:00 INR 1.17 (0.5-1.4) 01/25/19 17:00 PTT (Actin FS) 27.1 SECONDS (26.0-38.0) 01/25/19 17:00 Sodium 134 mEq/L (136-145) L 01/26/19 05:30 Potassium 4.1 mEq/L (3.5-5.1) 01/26/19 05:30 Chloride 107 mEq/L (98-107) 01/26/19 05:30 Carbon Dioxide 22.0 mEq/L (21.0-31.0) 01/26/19 05:30 Anion Gap 9.1 (7.0-16.0) 01/26/19 05:30 BUN 12 mg/dL (7-25) 01/26/19 05:30 Creatinine 0.7 mg/dL (0.7-1.3) 01/26/19 05:30 Est GFR ( Amer) > 60.0 ml/min (>90) 01/26/19 05:30 Est GFR (Non-Af Amer) > 60.0 ml/min 01/26/19 05:30 BUN/Creatinine Ratio 17.1 01/26/19 05:30 Glucose 125 mg/dL (70-105) H 01/26/19 05:30 Whole Bld Lactic Acid 0.69 mmol/L (0.60-1.99) 01/25/19 17:00 Calcium 8.5 mg/dL (8.6-10.3) L 01/26/19 05:30 Iron 16 ug/dL (38-169) L 01/26/19 15:00 TIBC 358 ug/dL (250-450) 01/26/19 15:00 Iron Saturation 4 % (15-55) L 01/26/19 15:00 Unsaturated IBC 342 ug/dL (111-343) 01/26/19 15:00 Ferritin 8 ng/mL (30-400) L 01/26/19 15:00 Total Bilirubin 0.7 mg/dL (0.3-1.0) 01/25/19 17:00 Direct Bilirubin 0.37 mg/dL (0.0-0.2) H 01/25/19 17:00 AST 40 U/L (13-39) H 01/25/19 17:00 ALT 36 U/L (7-52) 01/25/19 17:00 Alkaline Phosphatase 124 U/L (34-104) H 01/25/19 17:00 Total Protein 6.5 gm/dL (6.0-8.3) 01/25/19 17:00 Albumin 3.3 gm/dL (4.2-5.5) L 01/25/19 17:00 Globulin 3.2 gm/dL 01/25/19 17:00 Albumin/Globulin Ratio 1.0 (1.0-1.8) 01/25/19 17:00 Amylase 32 U/L (29-103) 01/26/19 05:30 Lipase 38 U/L (11-82) 01/25/19 17:00 Vitamin B12 1189 pg/mL (232-1245) 01/26/19 15:00 Folic Acid 12.5 ng/mL (>3.0) 01/26/19 15:00 TSH 0.74 uIU/ml (0.34-5.60) 01/26/19 05:30 Urine Source RANDOM 01/26/19 19:00 Urine Color YELLOW 01/26/19 19:00 Urine Clarity CLEAR (CLEAR) 01/26/19 19:00 Urine pH 5.5 (4.6 - 8.0) 01/26/19 19:00 Ur Specific Timbo 1.020 (1.005-1.030) 01/26/19 19:00 Urine Protein NEGATIVE mg/dL (NEGATIVE) 01/26/19 19:00 Urine Glucose (UA) NEGATIVE mg/dL (NEGATIVE) 01/26/19 19:00 Urine Ketones NEGATIVE mg/dL (NEGATIVE) 01/26/19 19:00 Urine Blood NEGATIVE (NEGATIVE) 01/26/19 19:00 Urine Nitrate NEGATIVE (NEGATIVE) 01/26/19 19:00 Urine Bilirubin NEGATIVE (NEGATIVE) 01/26/19 19:00 Urine Urobilinogen 1.0 E.U./dL (0.2 - 1.0) 01/26/19 19:00 Ur Leukocyte Esterase NEGATIVE (NEGATIVE) 01/26/19 19:00 Urine RBC NONE SEEN /hpf (0-5) 01/26/19 19:00 Urine WBC NONE SEEN /hpf (0-5) 01/26/19 19:00 Ur Epithelial Cells NONE SEEN /lpf (FEW) 01/26/19 19:00 Urine Bacteria 1+ /hpf (NONE SEEN) H 01/26/19 19:00 Blood Type O NEGATIVE 01/25/19 20:00 Antibody Screen POSITIVE 01/25/19 20:00 Antibody Identification Anti-D 01/25/19 20:00 Crossmatch See Detail 01/25/19 20:00 - Physical Exam Vitals and I&O: Vital Signs Temp 98.5 F 01/28/19 08:00 Pulse 68 01/28/19 08:00 Resp 18 01/28/19 08:00 BP 162/84 01/28/19 08:28 Pulse Ox 95 01/28/19 08:00 Intake & Output 01/27/19 01/28/19 01/28/19 18:59 06:59 18:59 Intake Total 873.333 360 761.667 Balance 873.333 360 761.667 Weight (lbs) 80.286 kg Intake: Intake, IV Amount 873.333 761.667 D5-0.45NS 1,000 ml @ 50 873.333 761.667 mls/hr IV .Q20H [facility] Rx#: [id number] Oral 360 Other: # Voids 4 Weight Source Bedscale Active Medications: Current Medications Albuterol Sulfate (Albuterol 2.5mg/3ml Neb Ud) 2.5 mg HHN Q4HRT PRN PRN Reason: Shortness of Breath Stop: 03/28/19 07:20 Ascorbic Acid (Vitamin C) 500 mg PO BID GURPREET Stop: 03/28/19 08:59 Last Admin: 01/28/19 08:28 Dose: 500 mg Folic Acid (Folate) 1 mg PO DAILY GURPREET Stop: 03/28/19 08:59 Last Admin: 01/28/19 08:27 Dose: 1 mg Furosemide (Lasix) 40 mg PO BID GURPREET Stop: 03/28/19 08:59 Last Admin: 01/28/19 08:28 Dose: 40 mg Dextrose/Sodium Chloride (D5-0.45ns) 1,000 mls @ 50 mls/hr IV .Q20H GURPREET Stop: 03/26/19 19:53 Last Admin: 01/28/19 08:28 Dose: 50 mls/hr Ibuprofen (Motrin) 600 mg PO Q6H PRN PRN Reason: Pain (Mild) Stop: 03/27/19 20:12 Lactobacillus Rhamnosus (Culturelle 15b) 1 each PO DAILY [facility] Stop: 03/28/19 08:59 Last Admin: 01/28/19 08:27 Dose: 1 each Lactulose (Cephulac) 20 gm PO BID GURPREET Stop: 03/28/19 08:59 Last Admin: 01/28/19 08:27 Dose: 20 gm Magnesium Oxide (Mag-Oxide) 400 mg PO DAILY GURPREET Stop: 03/28/19 08:59 Last Admin: 01/28/19 08:27 Dose: 400 mg Morphine Sulfate (Morphine) 1 mg IVP Q4HR PRN PRN Reason: Pain (Moderate) Stop: 03/26/19 23:58 General: Alert, Oriented x3 Neck: Supple Cardiovascular: Regular rate Abdomen: Bowel sounds, Soft, Other (reducible hernia), no Tender, no Hepatomegaly, no Splenomegaly, no Distended, no Rebound Psych/Mental Status: Mental status NL Assessment/Plan - Assessment Assessment: 58 yo M with HCV and EtOH related cirrhosis, ventral hernia, and anemia # Cirrhosis decompensated by small volume ascites - Not enough ascites for drainage. He will need outpt EGD for variceal screening - low salt diet - US every 6 months - avoid EtOH (he still has beer occasionally) - hepatology followup # Large ventral hernia - not a good surgical candidate as per surgeon. May need eval at tertiary center if the pt really wants an attempt at repair. He is high risk given cirrhosis and ascites # Anemia - no overt or acute bleeding. He had EGD/colo 2 years prior at [facility], and records were requested - we do not need to repeat the endoscopies now unless he has overt bleeding
--- NOTE | 2019-01-28 11:26 | Internal Medicine Prog Note ---
Internal Medicine Subjective - Subjective Service Date: 01/28/19 Patient seen and examined:: with staff Patient is:: awake, verbal, confused Patient Complaints of:: other (ventral hernia.) Per staff patient has:: no adverse event, no episodes of fall Internal Medicine Objective - Results Result Diagrams: 01/27/19 08:00 01/26/19 05:30 Recent Labs: Laboratory Last Values WBC 3.7 Th/cmm (4.8-10.8) L 01/27/19 08:00 RBC 3.97 Mil/cmm (4.30-5.70) L 01/27/19 08:00 Hgb 9.2 gm/dL (12-16) L 01/27/19 08:00 Hct 28.7 % (41.0-60) L 01/27/19 08:00 MCV 72.3 fl (80-99) L 01/27/19 08:00 MCH 23.1 pg (26.0-30.0) L 01/27/19 08:00 MCHC Differential 31.9 pg (28.0-36.0) 01/27/19 08:00 RDW 18.0 % (11.5-20.0) 01/27/19 08:00 Plt Count 71 Th/cmm (150-400) L 01/27/19 08:00 MPV 8.1 fl 01/27/19 08:00 Add Manual Diff YES 01/27/19 08:00 Neutrophils % MUTUEL DEPARTMENT MANAGER 01/27/19 08:00 Band Neutrophils % 0 % (0-10) 01/27/19 08:00 Lymphocytes % MUTUEL DEPARTMENT MANAGER 01/27/19 08:00 Monocytes % MUTUEL DEPARTMENT MANAGER 01/27/19 08:00 Eosinophils % MUTUEL DEPARTMENT MANAGER 01/27/19 08:00 Basophils % MUTUEL DEPARTMENT MANAGER 01/27/19 08:00 Neutrophils (Manual) 68 % (40-80) 01/27/19 08:00 Lymphocytes 21 % (20-50) 01/27/19 08:00 Monocytes 8 % (2-10) 01/27/19 08:00 Eosinophils 3 % (0-5) 01/27/19 08:00 Basophils 0 % (0-3) 01/27/19 08:00 Platelet Estimate DECREASED PLATELETS (NORMAL) 01/27/19 08:00 Poikilocytosis 1+ 01/25/19 17:00 Anisocytosis 1+ 01/25/19 17:00 Microcytosis 3+ 01/26/19 05:30 RBC Morph Micro Appear ABNORMAL (NORMAL) 01/25/19 17:00 PT 12.1 SECONDS (9.5-11.5) H 01/25/19 17:00 INR 1.17 (0.5-1.4) 01/25/19 17:00 PTT (Actin FS) 27.1 SECONDS (26.0-38.0) 01/25/19 17:00 Sodium 134 mEq/L (136-145) L 01/26/19 05:30 Potassium 4.1 mEq/L (3.5-5.1) 01/26/19 05:30 Chloride 107 mEq/L (98-107) 01/26/19 05:30 Carbon Dioxide 22.0 mEq/L (21.0-31.0) 01/26/19 05:30 Anion Gap 9.1 (7.0-16.0) 01/26/19 05:30 BUN 12 mg/dL (7-25) 01/26/19 05:30 Creatinine 0.7 mg/dL (0.7-1.3) 01/26/19 05:30 Est GFR ( Amer) > 60.0 ml/min (>90) 01/26/19 05:30 Est GFR (Non-Af Amer) > 60.0 ml/min 01/26/19 05:30 BUN/Creatinine Ratio 17.1 01/26/19 05:30 Glucose 125 mg/dL (70-105) H 01/26/19 05:30 Whole Bld Lactic Acid 0.69 mmol/L (0.60-1.99) 01/25/19 17:00 Calcium 8.5 mg/dL (8.6-10.3) L 01/26/19 05:30 Iron 16 ug/dL (38-169) L 01/26/19 15:00 TIBC 358 ug/dL (250-450) 01/26/19 15:00 Iron Saturation 4 % (15-55) L 01/26/19 15:00 Unsaturated IBC 342 ug/dL (111-343) 01/26/19 15:00 Ferritin 8 ng/mL (30-400) L 01/26/19 15:00 Total Bilirubin 0.7 mg/dL (0.3-1.0) 01/25/19 17:00 Direct Bilirubin 0.37 mg/dL (0.0-0.2) H 01/25/19 17:00 AST 40 U/L (13-39) H 01/25/19 17:00 ALT 36 U/L (7-52) 01/25/19 17:00 Alkaline Phosphatase 124 U/L (34-104) H 01/25/19 17:00 Total Protein 6.5 gm/dL (6.0-8.3) 01/25/19 17:00 Albumin 3.3 gm/dL (4.2-5.5) L 01/25/19 17:00 Globulin 3.2 gm/dL 01/25/19 17:00 Albumin/Globulin Ratio 1.0 (1.0-1.8) 01/25/19 17:00 Amylase 32 U/L (29-103) 01/26/19 05:30 Lipase 38 U/L (11-82) 01/25/19 17:00 Vitamin B12 1189 pg/mL (232-1245) 01/26/19 15:00 Folic Acid 12.5 ng/mL (>3.0) 01/26/19 15:00 TSH 0.74 uIU/ml (0.34-5.60) 01/26/19 05:30 Urine Source RANDOM 01/26/19 19:00 Urine Color YELLOW 01/26/19 19:00 Urine Clarity CLEAR (CLEAR) 01/26/19 19:00 Urine pH 5.5 (4.6 - 8.0) 01/26/19 19:00 Ur Specific Neal 1.020 (1.005-1.030) 01/26/19 19:00 Urine Protein NEGATIVE mg/dL (NEGATIVE) 01/26/19 19:00 Urine Glucose (UA) NEGATIVE mg/dL (NEGATIVE) 01/26/19 19:00 Urine Ketones NEGATIVE mg/dL (NEGATIVE) 01/26/19 19:00 Urine Blood NEGATIVE (NEGATIVE) 01/26/19 19:00 Urine Nitrate NEGATIVE (NEGATIVE) 01/26/19 19:00 Urine Bilirubin NEGATIVE (NEGATIVE) 01/26/19 19:00 Urine Urobilinogen 1.0 E.U./dL (0.2 - 1.0) 01/26/19 19:00 Ur Leukocyte Esterase NEGATIVE (NEGATIVE) 01/26/19 19:00 Urine RBC NONE SEEN /hpf (0-5) 01/26/19 19:00 Urine WBC NONE SEEN /hpf (0-5) 01/26/19 19:00 Ur Epithelial Cells NONE SEEN /lpf (FEW) 01/26/19 19:00 Urine Bacteria 1+ /hpf (NONE SEEN) H 01/26/19 19:00 Blood Type O NEGATIVE 01/25/19 20:00 Antibody Screen POSITIVE 01/25/19 20:00 Antibody Identification Anti-D 01/25/19 20:00 Crossmatch See Detail 01/25/19 20:00 - Physical Exam Vitals and I&O: Vital Signs Temp 98.5 F 01/28/19 08:00 Pulse 68 01/28/19 08:00 Resp 18 01/28/19 08:00 BP 162/84 01/28/19 08:28 Pulse Ox 95 01/28/19 08:00 Intake & Output 01/27/19 01/28/19 01/28/19 18:59 06:59 18:59 Intake Total 873.333 360 761.667 Balance 873.333 360 761.667 Weight (lbs) 80.286 kg Intake: Intake, IV Amount 873.333 761.667 D5-0.45NS 1,000 ml @ 50 873.333 761.667 mls/hr IV .Q20H [facility] Rx#: [id number] Oral 360 Other: # Voids 4 Weight Source Bedscale Active Medications: Current Medications Albuterol Sulfate (Albuterol 2.5mg/3ml Neb Ud) 2.5 mg HHN Q4HRT PRN PRN Reason: Shortness of Breath Stop: 03/28/19 07:20 Ascorbic Acid (Vitamin C) 500 mg PO BID GURPREET Stop: 03/28/19 08:59 Last Admin: 01/28/19 08:28 Dose: 500 mg Folic Acid (Folate) 1 mg PO DAILY GURPREET Stop: 03/28/19 08:59 Last Admin: 01/28/19 08:27 Dose: 1 mg Furosemide (Lasix) 40 mg PO BID GURPREET Stop: 03/28/19 08:59 Last Admin: 01/28/19 08:28 Dose: 40 mg Dextrose/Sodium Chloride (D5-0.45ns) 1,000 mls @ 50 mls/hr IV .Q20H [facility] Stop: 03/26/19 19:53 Last Admin: 01/28/19 08:28 Dose: 50 mls/hr Ibuprofen (Motrin) 600 mg PO Q6H PRN PRN Reason: Pain (Mild) Stop: 03/27/19 20:12 Lactobacillus Rhamnosus (Culturelle 15b) 1 each PO DAILY [facility] Stop: 03/28/19 08:59 Last Admin: 01/28/19 08:27 Dose: 1 each Lactulose (Cephulac) 20 gm PO BID GURPREET Stop: 03/28/19 08:59 Last Admin: 01/28/19 08:27 Dose: 20 gm Magnesium Oxide (Mag-Oxide) 400 mg PO DAILY [facility] Stop: 03/28/19 08:59 Last Admin: 01/28/19 08:27 Dose: 400 mg Morphine Sulfate (Morphine) 1 mg IVP Q4HR PRN PRN Reason: Pain (Moderate) Stop: 03/26/19 23:58 Physical Exam: Patient was admitted with Ventral hernia. General: weak HEENT: NC/AT Neck: Supple Lungs: CTAB Cardiovascular: RRR, Normal S1 Abdomen: tender Extremities: clear Neurological: no change Internal Medicine Assmt/Plan - Assessment Assessment: Ventral Hernia. Pancytopenia. History of Hepatitis C with Cirrhosis. COPD. Leukopenia. Anemia. Thrombocytopenia. - Plan Plan: Continuation of care. Monitor Labs, monitor hemoglobin levels. Continue present meds as directed. Respiratory treatments and Pulmonary support prn. Supplemental Oxygen prn. Aspiration precaution. Deep suctioning prn. Monitor Diet/Nutritional support. Pain Management. Physical therapy. Occupational therapy. Safety precaution. Supportive care. Fall precaution, frequent nursing rounds, and as needed restraints to prevent fall. Continue collaborating with consulting specialists, case management and nursing team. Will Monitor patient and continue present care management. Nutritional Asmnt/Malnutr-PDOC - Dietary Evaluation Malnutrition Findings (Please click <Entered> for more info): Nutritional Asmnt/Malnutrition Start: 01/26/19 14: 50 Text: Status: Complete Freq: Protocol: Document 01/26/19 14:50 SKYLAR (Rec: 01/26/19 14:53 [email or web address]) Nutritional Asmnt/Malnutrition Patient General Information Nutritional Screening High Risk Diagnosis Pancytopenia, ventral hernia Pertinent Medical Hx/Surgical Hx Hepatitis C, Liver Cirrhosis with Pancytopenia, Leukopenia, Anemia, Thrombocytopenia Subjective Information Pt is a 58-year-old male admitted on 01/25 c/o abdominal pain and cough. Pt had surgery for ventral hernia last March 2018. Pt is currently on NPO status since 01/26 midnight d/t Abdomen CT scan. Per [facility]UR[facility] C[facility], NPO status may remain for today and waiting for blood transfusion today. Unable to assess usual diet at home since Pt was sleeping at time of visit. Per H&P Report, CT scan showed large ventral hernia, irregular hepatic contour with splenomegaly and ascites consistent with changes of cirrhosis, cardiomegaly with coronary artery and atherosclerotic condition. HT: 511 WT: 177 LB (80.45 kg) BMI: 24.68 (Normal) GI: Ventral Hernia, Abdominal pain, soft, Non-Tender, Large, Round, Distended, Ascitic BM: Not noted I/O: 250/1 (249) Skin: WNL, Warm, Dry, Elastic, Intact, Scar on abdomen, past ventral hernia repair Jet: 20 Diet Order: NPO Estimated Energy Needs: (Adult , CBW) 7014-4876 kcals (25-30 kcals/ kg) 64-80 g Pro (0.8-1.0 g/kg) 2388-6448 ml (25-30 ml/kg) Current Diet Order/ Nutrition Support NPO Pertinent Medications D5-0.45ns 1000mls @50mls/hr IV Q20H Pertinent Labs 01/26: Hgb/Hct 7.8/24.9, Na 134, Glucose 125, Ca 8.5 01/25: Hgb/Hct 7.8/24.3, Cl 108, Glucose 106, Alb 3.3 Nutritional Hx/Data Height 1.8 m Height (Calculated Centimeters) 180.3 Current Weight (lbs) 80.286 kg Weight (Calculated Kilograms) 80.3 Weight (Calculated Grams) 27674.8 Almo Body Weight 75.3 kg % Almo Body Weight 106 Body Mass Index (BMI) 24.7 Weight Status Approriate GI Symptoms GI Symptoms None Last BM Not noted Skin Integrity/Comment: WNL, Warm, Dry, Elastic, Intact, Scar on abdomen, past ventral hernia repair Jet: 20 Estimated Nutritional Goals BEE in Kcals: Using Current wt Calories/Kcals/Kg 25-30 Kcals Calculated 5637-1520 Protein: Using Current wt Protein g/k.8-1.0 Protein Calculated 64-80 Fluid: ml 0440-7174 ml (25-30 ml/kg) Nutritional Problem 1. Problem Problem Inadequate energy intake Etiology r/t Abdomen CT scan and pending result Signs/Symptoms: aeb NPO status. Malnutrition Related to Morbid Obesity Malnutrition related to morbid obesity No Intervention/Recommendation Comments 1.Continue with NPO status as medically appropriate. Expected Outcomes/Goals Expected Outcomes/Goals 1.Monitor on NPO status, wt, nutrition related labs, and skin integrity. 2.F/U as high risk in 2-3 days , 01/28-01/29 Physician Parameters for PEM Normal Weight % 90% - 110% (Normal)
--- NOTE | 2019-01-28 18:15 | Progress Notes ---
DATE: 01/28/2019 SURGICAL PROGRESS NOTE TIME: At 2:18 p.m. SUBJECTIVE: The patient is a 58-year-old male followed for ventral hernias and concern for possible ileus versus a partial small-bowel obstruction. OBJECTIVE: GENERAL: Afebrile. Vital signs are otherwise stable. No significant abdominal pain at this time. No vomiting, tolerating p.o. diet. HEENT AND NECK: Within normal limits. He is disheveled appearing. He has no neck mass, lymphadenopathy, carotid bruits, or JVD. CHEST: Clear to auscultation bilaterally. HEART: Regular rhythm and rate. ABDOMEN: He has multiple large ventral hernias of the abdominal but they are wide mouth ventral hernias. They are nontender, reducible. There are no overlying skin changes. NEUROVASCULAR AND EXTREMITIES: Otherwise normal. LABORATORY DATA: His white blood cell count of 3.7, H and H is 9 and 28.7, and platelet count 71. His last Chem-7 was on 01/25/2019, chloride 108, glucose 106, total bilirubin 0.7, AST 40, alkaline phosphatase 124, urine bacteria 1+. MEDICATIONS: The patient is on albuterol, IV fluids, Lasix, lactobacillus, lactulose, magnesium oxide, and morphine. IMPRESSION AND PLAN: The patient is a 58-year-old male. He has got multiple medical problems including end-stage liver disease. He has got pancytopenia, leukopenia, and thrombocytopenia. He has got hepatitis C, COPD. He has got large multiple ventral hernias, but no obstructive GI type symptoms. Discussed with the patient the limitations of the services here at [facility], explained to him that unable to provide surgical services to repair the ventral hernia given his overall medical condition and multiple comorbidities and the limited services here at [facility]. Preferably if he desires to have these ventral hernias repaired, this could possibly be undertaken at a large community hospital or a tertiary care level center; however, his insurance status may be a limiting factor. Advance diet as tolerated. Discharge planning is reasonable. The ventral hernias can be addressed as an outpatient in my opinion. The CT results have been reviewed and discussed in previous notes. JOB# [id number]
--- NOTE | 2019-01-29 09:15 | GI Progress Note ---
Subjective - Review of Systems Service Date: 01/29/19 Subjective: No overnight events GI OBJECTIVE - Results Result Diagrams: 01/27/19 08:00 01/26/19 05:30 Recent Labs: Laboratory Last Values WBC 3.7 Th/cmm (4.8-10.8) L 01/27/19 08:00 RBC 3.97 Mil/cmm (4.30-5.70) L 01/27/19 08:00 Hgb 9.2 gm/dL (12-16) L 01/27/19 08:00 Hct 28.7 % (41.0-60) L 01/27/19 08:00 MCV 72.3 fl (80-99) L 01/27/19 08:00 MCH 23.1 pg (26.0-30.0) L 01/27/19 08:00 MCHC Differential 31.9 pg (28.0-36.0) 01/27/19 08:00 RDW 18.0 % (11.5-20.0) 01/27/19 08:00 Plt Count 71 Th/cmm (150-400) L 01/27/19 08:00 MPV 8.1 fl 01/27/19 08:00 Add Manual Diff YES 01/27/19 08:00 Neutrophils % RELIGIOUS EDUCATOR 01/27/19 08:00 Band Neutrophils % 0 % (0-10) 01/27/19 08:00 Lymphocytes % RELIGIOUS EDUCATOR 01/27/19 08:00 Monocytes % RELIGIOUS EDUCATOR 01/27/19 08:00 Eosinophils % RELIGIOUS EDUCATOR 01/27/19 08:00 Basophils % RELIGIOUS EDUCATOR 01/27/19 08:00 Neutrophils (Manual) 68 % (40-80) 01/27/19 08:00 Lymphocytes 21 % (20-50) 01/27/19 08:00 Monocytes 8 % (2-10) 01/27/19 08:00 Eosinophils 3 % (0-5) 01/27/19 08:00 Basophils 0 % (0-3) 01/27/19 08:00 Platelet Estimate DECREASED PLATELETS (NORMAL) 01/27/19 08:00 Poikilocytosis 1+ 01/25/19 17:00 Anisocytosis 1+ 01/25/19 17:00 Microcytosis 3+ 01/26/19 05:30 RBC Morph Micro Appear ABNORMAL (NORMAL) 01/25/19 17:00 PT 12.1 SECONDS (9.5-11.5) H 01/25/19 17:00 INR 1.17 (0.5-1.4) 01/25/19 17:00 PTT (Actin FS) 27.1 SECONDS (26.0-38.0) 01/25/19 17:00 Sodium 134 mEq/L (136-145) L 01/26/19 05:30 Potassium 4.1 mEq/L (3.5-5.1) 01/26/19 05:30 Chloride 107 mEq/L (98-107) 01/26/19 05:30 Carbon Dioxide 22.0 mEq/L (21.0-31.0) 01/26/19 05:30 Anion Gap 9.1 (7.0-16.0) 01/26/19 05:30 BUN 12 mg/dL (7-25) 01/26/19 05:30 Creatinine 0.7 mg/dL (0.7-1.3) 01/26/19 05:30 Est GFR ( Amer) > 60.0 ml/min (>90) 01/26/19 05:30 Est GFR (Non-Af Amer) > 60.0 ml/min 01/26/19 05:30 BUN/Creatinine Ratio 17.1 01/26/19 05:30 Glucose 125 mg/dL (70-105) H 01/26/19 05:30 Whole Bld Lactic Acid 0.69 mmol/L (0.60-1.99) 01/25/19 17:00 Calcium 8.5 mg/dL (8.6-10.3) L 01/26/19 05:30 Iron 16 ug/dL (38-169) L 01/26/19 15:00 TIBC 358 ug/dL (250-450) 01/26/19 15:00 Iron Saturation 4 % (15-55) L 01/26/19 15:00 Unsaturated IBC 342 ug/dL (111-343) 01/26/19 15:00 Ferritin 8 ng/mL (30-400) L 01/26/19 15:00 Total Bilirubin 0.7 mg/dL (0.3-1.0) 01/25/19 17:00 Direct Bilirubin 0.37 mg/dL (0.0-0.2) H 01/25/19 17:00 AST 40 U/L (13-39) H 01/25/19 17:00 ALT 36 U/L (7-52) 01/25/19 17:00 Alkaline Phosphatase 124 U/L (34-104) H 01/25/19 17:00 Total Protein 6.5 gm/dL (6.0-8.3) 01/25/19 17:00 Albumin 3.3 gm/dL (4.2-5.5) L 01/25/19 17:00 Globulin 3.2 gm/dL 01/25/19 17:00 Albumin/Globulin Ratio 1.0 (1.0-1.8) 01/25/19 17:00 Amylase 32 U/L (29-103) 01/26/19 05:30 Lipase 38 U/L (11-82) 01/25/19 17:00 Vitamin B12 1189 pg/mL (232-1245) 01/26/19 15:00 Folic Acid 12.5 ng/mL (>3.0) 01/26/19 15:00 TSH 0.74 uIU/ml (0.34-5.60) 01/26/19 05:30 Urine Source RANDOM 01/26/19 19:00 Urine Color YELLOW 01/26/19 19:00 Urine Clarity CLEAR (CLEAR) 01/26/19 19:00 Urine pH 5.5 (4.6 - 8.0) 01/26/19 19:00 Ur Specific [place] 1.020 (1.005-1.030) 01/26/19 19:00 Urine Protein NEGATIVE mg/dL (NEGATIVE) 01/26/19 19:00 Urine Glucose (UA) NEGATIVE mg/dL (NEGATIVE) 01/26/19 19:00 Urine Ketones NEGATIVE mg/dL (NEGATIVE) 01/26/19 19:00 Urine Blood NEGATIVE (NEGATIVE) 01/26/19 19:00 Urine Nitrate NEGATIVE (NEGATIVE) 01/26/19 19:00 Urine Bilirubin NEGATIVE (NEGATIVE) 01/26/19 19:00 Urine Urobilinogen 1.0 E.U./dL (0.2 - 1.0) 01/26/19 19:00 Ur Leukocyte Esterase NEGATIVE (NEGATIVE) 01/26/19 19:00 Urine RBC NONE SEEN /hpf (0-5) 01/26/19 19:00 Urine WBC NONE SEEN /hpf (0-5) 01/26/19 19:00 Ur Epithelial Cells NONE SEEN /lpf (FEW) 01/26/19 19:00 Urine Bacteria 1+ /hpf (NONE SEEN) H 01/26/19 19:00 Blood Type O NEGATIVE 01/25/19 20:00 Antibody Screen POSITIVE 01/25/19 20:00 Antibody Identification Anti-D 01/25/19 20:00 Crossmatch See Detail 01/25/19 20:00 - Physical Exam Vitals and I&O: Vital Signs Temp 98.3 F 01/29/19 07:34 Pulse 77 01/29/19 07:34 Resp 20 01/29/19 07:34 BP 144/91 01/29/19 07:34 Pulse Ox 97 01/29/19 07:34 Intake & Output 01/28/19 01/29/19 01/29/19 18:59 06:59 18:59 Intake Total 1161.667 300 Output Total 750 Balance 1161.667 -450 Weight (lbs) 80.286 kg 80.286 kg Intake: Intake, IV Amount 761.667 D5-0.45NS 1,000 ml @ 50 761.667 mls/hr IV .Q[facility] Rx#: [id number] Oral 400 300 Output: Urine 750 Other: # Voids 3 # Bowel Movements 0 Weight Source Bedscale Bedscale Active Medications: Current Medications Albuterol Sulfate (Albuterol 2.5mg/3ml Neb Ud) 2.5 mg HHN Q4HRT PRN PRN Reason: Shortness of Breath Stop: 03/28/19 07:20 Ascorbic Acid (Vitamin C) 500 mg PO BID GURPREET Stop: 03/28/19 08:59 Last Admin: 01/28/19 16:20 Dose: 500 mg Folic Acid (Folate) 1 mg PO DAILY GURPREET Stop: 03/28/19 08:59 Last Admin: 01/28/19 08:27 Dose: 1 mg Furosemide (Lasix) 40 mg PO BID GURPREET Stop: 03/28/19 08:59 Last Admin: 01/28/19 16:20 Dose: 40 mg Dextrose/Sodium Chloride (D5-0.45ns) 1,000 mls @ 50 mls/hr IV .Q20H [facility] Stop: 03/26/19 19:53 Last Admin: 01/28/19 08:28 Dose: 50 mls/hr Ibuprofen (Motrin) 600 mg PO Q6H PRN PRN Reason: Pain (Mild) Stop: 03/27/19 20:12 Lactobacillus Rhamnosus (Culturelle 15b) 1 each PO DAILY [facility] Stop: 03/28/19 08:59 Last Admin: 01/28/19 08:27 Dose: 1 each Lactulose (Cephulac) 20 gm PO BID GURPREET Stop: 03/28/19 08:59 Last Admin: 01/28/19 16:20 Dose: 20 gm Magnesium Oxide (Mag-Oxide) 400 mg PO DAILY GURPREET Stop: 03/28/19 08:59 Last Admin: 01/28/19 08:27 Dose: 400 mg Morphine Sulfate (Morphine) 1 mg IVP Q4HR PRN PRN Reason: Pain (Moderate) Stop: 03/26/19 23:58 General: Alert, Oriented x3 HEENT: Atraumatic Neck: Supple Cardiovascular: Regular rate Abdomen: Bowel sounds, Soft, Other (ventral hernia), no Tender, no Hepatomegaly , no Splenomegaly, no Rebound, no Mass, no Guarding Assessment/Plan - Assessment Assessment: 58 yo M with HCV and EtOH related cirrhosis, ventral hernia, and anemia # Cirrhosis decompensated by small volume ascites - Not enough ascites for drainage. He will need outpt EGD for variceal screening - low salt diet - US every 6 months - avoid EtOH (he still has beer occasionally) - hepatology followup # Large ventral hernia - not a good surgical candidate as per surgeon. May need eval at tertiary center if the pt really wants an attempt at repair. He is high risk given cirrhosis and ascites # Anemia - no overt or acute bleeding. He had EGD/colo 2 years prior at [facility], and records were requested - we do not need to repeat the endoscopies now unless he has overt bleeding - no labs ordered by hospitalist GI to see as needed, please call with questions
[2019-01-29] MEDS: Lactulose 10 Gm/15 mL 30mL UDC PO SCH ×2 (09:46→17:33)
[2019-01-29] MEDS: Lactobacillus Rhamnosus GG 15 Billion CFU CAP.SPRINK PO SCH (09:46)
--- NOTE | 2019-01-29 10:05 | General Progress Note ---
Subjective - Review of Systems Service Date: 01/29/19 Subjective: weak Objective - Results Result Diagrams: 01/27/19 08:00 01/26/19 05:30 Recent Labs: Laboratory Last Values WBC 3.7 Th/cmm (4.8-10.8) L 01/27/19 08:00 RBC 3.97 Mil/cmm (4.30-5.70) L 01/27/19 08:00 Hgb 9.2 gm/dL (12-16) L 01/27/19 08:00 Hct 28.7 % (41.0-60) L 01/27/19 08:00 MCV 72.3 fl (80-99) L 01/27/19 08:00 MCH 23.1 pg (26.0-30.0) L 01/27/19 08:00 MCHC Differential 31.9 pg (28.0-36.0) 01/27/19 08:00 RDW 18.0 % (11.5-20.0) 01/27/19 08:00 Plt Count 71 Th/cmm (150-400) L 01/27/19 08:00 MPV 8.1 fl 01/27/19 08:00 Add Manual Diff YES 01/27/19 08:00 Neutrophils % SCHOOL SOCIAL WORKER 01/27/19 08:00 Band Neutrophils % 0 % (0-10) 01/27/19 08:00 Lymphocytes % SCHOOL SOCIAL WORKER 01/27/19 08:00 Monocytes % SCHOOL SOCIAL WORKER 01/27/19 08:00 Eosinophils % SCHOOL SOCIAL WORKER 01/27/19 08:00 Basophils % SCHOOL SOCIAL WORKER 01/27/19 08:00 Neutrophils (Manual) 68 % (40-80) 01/27/19 08:00 Lymphocytes 21 % (20-50) 01/27/19 08:00 Monocytes 8 % (2-10) 01/27/19 08:00 Eosinophils 3 % (0-5) 01/27/19 08:00 Basophils 0 % (0-3) 01/27/19 08:00 Platelet Estimate DECREASED PLATELETS (NORMAL) 01/27/19 08:00 Poikilocytosis 1+ 01/25/19 17:00 Anisocytosis 1+ 01/25/19 17:00 Microcytosis 3+ 01/26/19 05:30 RBC Morph Micro Appear ABNORMAL (NORMAL) 01/25/19 17:00 PT 12.1 SECONDS (9.5-11.5) H 01/25/19 17:00 INR 1.17 (0.5-1.4) 01/25/19 17:00 PTT (Actin FS) 27.1 SECONDS (26.0-38.0) 01/25/19 17:00 Sodium 134 mEq/L (136-145) L 01/26/19 05:30 Potassium 4.1 mEq/L (3.5-5.1) 01/26/19 05:30 Chloride 107 mEq/L (98-107) 01/26/19 05:30 Carbon Dioxide 22.0 mEq/L (21.0-31.0) 01/26/19 05:30 Anion Gap 9.1 (7.0-16.0) 01/26/19 05:30 BUN 12 mg/dL (7-25) 01/26/19 05:30 Creatinine 0.7 mg/dL (0.7-1.3) 01/26/19 05:30 Est GFR ( Amer) > 60.0 ml/min (>90) 01/26/19 05:30 Est GFR (Non-Af Amer) > 60.0 ml/min 01/26/19 05:30 BUN/Creatinine Ratio 17.1 01/26/19 05:30 Glucose 125 mg/dL (70-105) H 01/26/19 05:30 Whole Bld Lactic Acid 0.69 mmol/L (0.60-1.99) 01/25/19 17:00 Calcium 8.5 mg/dL (8.6-10.3) L 01/26/19 05:30 Iron 16 ug/dL (38-169) L 01/26/19 15:00 TIBC 358 ug/dL (250-450) 01/26/19 15:00 Iron Saturation 4 % (15-55) L 01/26/19 15:00 Unsaturated IBC 342 ug/dL (111-343) 01/26/19 15:00 Ferritin 8 ng/mL (30-400) L 01/26/19 15:00 Total Bilirubin 0.7 mg/dL (0.3-1.0) 01/25/19 17:00 Direct Bilirubin 0.37 mg/dL (0.0-0.2) H 01/25/19 17:00 AST 40 U/L (13-39) H 01/25/19 17:00 ALT 36 U/L (7-52) 01/25/19 17:00 Alkaline Phosphatase 124 U/L (34-104) H 01/25/19 17:00 Total Protein 6.5 gm/dL (6.0-8.3) 01/25/19 17:00 Albumin 3.3 gm/dL (4.2-5.5) L 01/25/19 17:00 Globulin 3.2 gm/dL 01/25/19 17:00 Albumin/Globulin Ratio 1.0 (1.0-1.8) 01/25/19 17:00 Amylase 32 U/L (29-103) 01/26/19 05:30 Lipase 38 U/L (11-82) 01/25/19 17:00 Vitamin B12 1189 pg/mL (232-1245) 01/26/19 15:00 Folic Acid 12.5 ng/mL (>3.0) 01/26/19 15:00 TSH 0.74 uIU/ml (0.34-5.60) 01/26/19 05:30 Urine Source RANDOM 01/26/19 19:00 Urine Color YELLOW 01/26/19 19:00 Urine Clarity CLEAR (CLEAR) 01/26/19 19:00 Urine pH 5.5 (4.6 - 8.0) 01/26/19 19:00 Ur Specific [place] 1.020 (1.005-1.030) 01/26/19 19:00 Urine Protein NEGATIVE mg/dL (NEGATIVE) 01/26/19 19:00 Urine Glucose (UA) NEGATIVE mg/dL (NEGATIVE) 01/26/19 19:00 Urine Ketones NEGATIVE mg/dL (NEGATIVE) 01/26/19 19:00 Urine Blood NEGATIVE (NEGATIVE) 01/26/19 19:00 Urine Nitrate NEGATIVE (NEGATIVE) 01/26/19 19:00 Urine Bilirubin NEGATIVE (NEGATIVE) 01/26/19 19:00 Urine Urobilinogen 1.0 E.U./dL (0.2 - 1.0) 01/26/19 19:00 Ur Leukocyte Esterase NEGATIVE (NEGATIVE) 01/26/19 19:00 Urine RBC NONE SEEN /hpf (0-5) 01/26/19 19:00 Urine WBC NONE SEEN /hpf (0-5) 01/26/19 19:00 Ur Epithelial Cells NONE SEEN /lpf (FEW) 01/26/19 19:00 Urine Bacteria 1+ /hpf (NONE SEEN) H 01/26/19 19:00 Blood Type O NEGATIVE 01/25/19 20:00 Antibody Screen POSITIVE 01/25/19 20:00 Antibody Identification Anti-D 01/25/19 20:00 Crossmatch See Detail 01/25/19 20:00 - Physical Exam Vitals and I&O: Vital Signs Temp 98.3 F 01/29/19 07:34 Pulse 77 01/29/19 07:34 Resp 20 01/29/19 07:34 BP 144/91 01/29/19 09:45 Pulse Ox 97 01/29/19 07:34 Intake & Output 01/28/19 01/29/19 01/29/19 18:59 06:59 18:59 Intake Total 1161.667 300 Output Total 750 Balance 1161.667 -450 Weight (lbs) 80.286 kg 80.286 kg Intake: Intake, IV Amount 761.667 D5-0.45NS 1,000 ml @ 50 761.667 mls/hr IV .Q20H [facility] Rx#: [id number] Oral 400 300 Output: Urine 750 Other: # Voids 3 # Bowel Movements 0 Weight Source Bedscale Bedscale Active Medications: Current Medications Albuterol Sulfate (Albuterol 2.5mg/3ml Neb Ud) 2.5 mg HHN Q4HRT PRN PRN Reason: Shortness of Breath Stop: 03/28/19 07:20 Ascorbic Acid (Vitamin C) 500 mg PO BID [facility]UR[facility] Stop: 03/28/19 08:59 Last Admin: 01/29/19 09:45 Dose: 500 mg Folic Acid (Folate) 1 mg PO DAILY [facility] Stop: 03/28/19 08:59 Last Admin: 01/29/19 09:46 Dose: 1 mg Furosemide (Lasix) 40 mg PO BID GUR[facility] Stop: 03/28/19 08:59 Last Admin: 01/29/19 09:45 Dose: 40 mg Dextrose/Sodium Chloride (D5-0.45ns) 1,000 mls @ 50 mls/hr IV .Q20H [facility] Stop: 03/26/19 19:53 Last Admin: 01/28/19 08:28 Dose: 50 mls/hr Ferric Sodium Gluconate Complex 125 mg/ Sodium Chloride 110 mls @ 100 mls/hr IV Q24HR [facility] Stop: 02/04/19 10:14 Ibuprofen (Motrin) 600 mg PO Q6H PRN PRN Reason: Pain (Mild) Stop: 03/27/19 20:12 Lactobacillus Rhamnosus (Culturelle 15b) 1 each PO DAILY [facility] Stop: 03/28/19 08:59 Last Admin: 01/29/19 09:46 Dose: 1 each Lactulose (Cephulac) 20 gm PO BID GUR[facility] Stop: 03/28/19 08:59 Last Admin: 01/29/19 09:46 Dose: 20 gm Magnesium Oxide (Mag-Oxide) 400 mg PO DAILY [facility] Stop: 03/28/19 08:59 Last Admin: 01/29/19 09:45 Dose: 400 mg Morphine Sulfate (Morphine) 1 mg IVP Q4HR PRN PRN Reason: Pain (Moderate) Stop: 03/26/19 23:58 General: Alert, Oriented x3 HEENT: Atraumatic Neck: Supple Cardiovascular: Regular rate Abdomen: Bowel sounds, Soft, Other (ventral hernia), no Tender, no Hepatomegaly , no Splenomegaly, no Rebound, no Mass, no Guarding Psych/Mental Status: Mental status NL Assessment/Plan - Assessment Assessment: Pancytopenia most likely secondary to chronic hepatitis C and cirrhosis associated with splenomegaly. The CT scan of the abdomen without contrast was noted reporting ____ with splenomegaly and ascites consistent with cirrhosis. I will obtain the anemia workup. The patient was already transfused. He is high risk for bleeding from the GI tract from esophageal or gastric varices or other etiologies. No additional transfusion is needed. The patient is high risk for surgery. 01/29: iron deficiency anemia. start iv ferrlecit. Nutritional Asmnt/Malnutr-PDOC - Dietary Evaluation Malnutrition Findings (Please click <Entered> for more info): Nutritional Asmnt/Malnutrition Start: 01/26/19 14: 50 Text: Status: Complete Freq: Protocol: Document 01/26/19 14:50 SKYLAR (Rec: 01/26/19 14:53 [id number]) Nutritional Asmnt/Malnutrition Patient General Information Nutritional Screening High Risk Diagnosis Pancytopenia, ventral hernia Pertinent Medical Hx/Surgical Hx Hepatitis C, Liver Cirrhosis with Pancytopenia, Leukopenia, Anemia, Thrombocytopenia Subjective Information Pt is a 58-year-old male admitted on 01/25 c/o abdominal pain and cough. Pt had surgery for ventral hernia last March 2018. Pt is currently on NPO status since 01/26 midnight d/t Abdomen CT scan. Per [facility] [place], NPO status may remain for today and waiting for blood transfusion today. Unable to assess usual diet at home since Pt was sleeping at time of visit. Per H&P Report, CT scan showed large ventral hernia, irregular hepatic contour with splenomegaly and ascites consistent with changes of cirrhosis, cardiomegaly with coronary artery and atherosclerotic condition. HT: 511 WT: 177 LB (80.45 kg) BMI: 24.68 (Normal) GI: Ventral Hernia, Abdominal pain, soft, Non-Tender, Large, Round, Distended, Ascitic BM: Not noted I/O: 250/1 (249) Skin: WNL, Warm, Dry, Elastic, Intact, Scar on abdomen, past ventral hernia repair Jet: 20 Diet Order: NPO Estimated Energy Needs: (Adult , CBW) 2466-4218 kcals (25-30 kcals/ kg) 64-80 g Pro (0.8-1.0 g/kg) 1229-9746 ml (25-30 ml/kg) Current Diet Order/ Nutrition Support NPO Pertinent Medications D5-0.45ns 1000mls @50mls/hr IV Q20H Pertinent Labs 01/26: Hgb/Hct 7.8/24.9, Na 134, Glucose 125, Ca 8.5 01/25: Hgb/Hct 7.8/24.3, Cl 108, Glucose 106, Alb 3.3 Nutritional Hx/Data Height 1.8 m Height (Calculated Centimeters) 180.3 Current Weight (lbs) 80.286 kg Weight (Calculated Kilograms) 80.3 Weight (Calculated Grams) 036[address].8 [place] Body Weight 75.3 kg % [place] Body Weight 106 Body Mass Index (BMI) 24.7 Weight Status Approriate GI Symptoms GI Symptoms None Last BM Not noted Skin Integrity/Comment: WNL, Warm, Dry, Elastic, Intact, Scar on abdomen, past ventral hernia repair Jet: 20 Estimated Nutritional Goals BEE in Kcals: Using Current wt Calories/Kcals/Kg 25-30 Kcals Calculated 5367-6129 Protein: Using Current wt Protein g/k.8-1.0 Protein Calculated 64-80 Fluid: ml 3688-6405 ml (25-30 ml/kg) Nutritional Problem 1. Problem Problem Inadequate energy intake Etiology r/t Abdomen CT scan and pending result Signs/Symptoms: aeb NPO status. Malnutrition Related to Morbid Obesity Malnutrition related to morbid obesity No Intervention/Recommendation Comments 1.Continue with NPO status as medically appropriate. Expected Outcomes/Goals Expected Outcomes/Goals 1.Monitor on NPO status, wt, nutrition related labs, and skin integrity. 2.F/U as high risk in 2-3 days , 01/28-01/29 Physician Parameters for PEM Normal Weight % 90% - 110% (Normal)
--- NOTE | 2019-01-29 11:29 | Internal Medicine Prog Note ---
Internal Medicine Subjective - Subjective Service Date: 01/29/19 Patient is:: awake, verbal, confused Patient Complaints of:: other (ventral hernia.) Per staff patient has:: no adverse event, no episodes of fall Internal Medicine Objective - Results Result Diagrams: 01/27/19 08:00 01/26/19 05:30 Recent Labs: Laboratory Last Values WBC 3.7 Th/cmm (4.8-10.8) L 01/27/19 08:00 RBC 3.97 Mil/cmm (4.30-5.70) L 01/27/19 08:00 Hgb 9.2 gm/dL (12-16) L 01/27/19 08:00 Hct 28.7 % (41.0-60) L 01/27/19 08:00 MCV 72.3 fl (80-99) L 01/27/19 08:00 MCH 23.1 pg (26.0-30.0) L 01/27/19 08:00 MCHC Differential 31.9 pg (28.0-36.0) 01/27/19 08:00 RDW 18.0 % (11.5-20.0) 01/27/19 08:00 Plt Count 71 Th/cmm (150-400) L 01/27/19 08:00 MPV 8.1 fl 01/27/19 08:00 Add Manual Diff YES 01/27/19 08:00 Neutrophils % [employer]ER 01/27/19 08:00 Band Neutrophils % 0 % (0-10) 01/27/19 08:00 Lymphocytes % [employer] T[employer]ER 01/27/19 08:00 Monocytes % [employer] TENDER 01/27/19 08:00 Eosinophils % [employer] TENDER 01/27/19 08:00 Basophils % [employer] T[employer]ER 01/27/19 08:00 Neutrophils (Manual) 68 % (40-80) 01/27/19 08:00 Lymphocytes 21 % (20-50) 01/27/19 08:00 Monocytes 8 % (2-10) 01/27/19 08:00 Eosinophils 3 % (0-5) 01/27/19 08:00 Basophils 0 % (0-3) 01/27/19 08:00 Platelet Estimate DECREASED PLATELETS (NORMAL) 01/27/19 08:00 Poikilocytosis 1+ 01/25/19 17:00 Anisocytosis 1+ 01/25/19 17:00 Microcytosis 3+ 01/26/19 05:30 RBC Morph Micro Appear ABNORMAL (NORMAL) 01/25/19 17:00 PT 12.1 SECONDS (9.5-11.5) H 01/25/19 17:00 INR 1.17 (0.5-1.4) 01/25/19 17:00 PTT (Actin FS) 27.1 SECONDS (26.0-38.0) 01/25/19 17:00 Sodium 134 mEq/L (136-145) L 01/26/19 05:30 Potassium 4.1 mEq/L (3.5-5.1) 01/26/19 05:30 Chloride 107 mEq/L (98-107) 01/26/19 05:30 Carbon Dioxide 22.0 mEq/L (21.0-31.0) 01/26/19 05:30 Anion Gap 9.1 (7.0-16.0) 01/26/19 05:30 BUN 12 mg/dL (7-25) 01/26/19 05:30 Creatinine 0.7 mg/dL (0.7-1.3) 01/26/19 05:30 Est GFR ( Amer) > 60.0 ml/min (>90) 01/26/19 05:30 Est GFR (Non-Af Amer) > 60.0 ml/min 01/26/19 05:30 BUN/Creatinine Ratio 17.1 01/26/19 05:30 Glucose 125 mg/dL (70-105) H 01/26/19 05:30 Whole Bld Lactic Acid 0.69 mmol/L (0.60-1.99) 01/25/19 17:00 Calcium 8.5 mg/dL (8.6-10.3) L 01/26/19 05:30 Iron 16 ug/dL (38-169) L 01/26/19 15:00 TIBC 358 ug/dL (250-450) 01/26/19 15:00 Iron Saturation 4 % (15-55) L 01/26/19 15:00 Unsaturated IBC 342 ug/dL (111-343) 01/26/19 15:00 Ferritin 8 ng/mL (30-400) L 01/26/19 15:00 Total Bilirubin 0.7 mg/dL (0.3-1.0) 01/25/19 17:00 Direct Bilirubin 0.37 mg/dL (0.0-0.2) H 01/25/19 17:00 AST 40 U/L (13-39) H 01/25/19 17:00 ALT 36 U/L (7-52) 01/25/19 17:00 Alkaline Phosphatase 124 U/L (34-104) H 01/25/19 17:00 Total Protein 6.5 gm/dL (6.0-8.3) 01/25/19 17:00 Albumin 3.3 gm/dL (4.2-5.5) L 01/25/19 17:00 Globulin 3.2 gm/dL 01/25/19 17:00 Albumin/Globulin Ratio 1.0 (1.0-1.8) 01/25/19 17:00 Amylase 32 U/L (29-103) 01/26/19 05:30 Lipase 38 U/L (11-82) 01/25/19 17:00 Vitamin B12 1189 pg/mL (232-1245) 01/26/19 15:00 Folic Acid 12.5 ng/mL (>3.0) 01/26/19 15:00 TSH 0.74 uIU/ml (0.34-5.60) 01/26/19 05:30 Urine Source RANDOM 01/26/19 19:00 Urine Color YELLOW 01/26/19 19:00 Urine Clarity CLEAR (CLEAR) 01/26/19 19:00 Urine pH 5.5 (4.6 - 8.0) 01/26/19 19:00 Ur Specific [place] 1.020 (1.005-1.030) 01/26/19 19:00 Urine Protein NEGATIVE mg/dL (NEGATIVE) 01/26/19 19:00 Urine Glucose (UA) NEGATIVE mg/dL (NEGATIVE) 01/26/19 19:00 Urine Ketones NEGATIVE mg/dL (NEGATIVE) 01/26/19 19:00 Urine Blood NEGATIVE (NEGATIVE) 01/26/19 19:00 Urine Nitrate NEGATIVE (NEGATIVE) 01/26/19 19:00 Urine Bilirubin NEGATIVE (NEGATIVE) 01/26/19 19:00 Urine Urobilinogen 1.0 E.U./dL (0.2 - 1.0) 01/26/19 19:00 Ur Leukocyte Esterase NEGATIVE (NEGATIVE) 01/26/19 19:00 Urine RBC NONE SEEN /hpf (0-5) 01/26/19 19:00 Urine WBC NONE SEEN /hpf (0-5) 01/26/19 19:00 Ur Epithelial Cells NONE SEEN /lpf (FEW) 01/26/19 19:00 Urine Bacteria 1+ /hpf (NONE SEEN) H 01/26/19 19:00 Blood Type O NEGATIVE 01/25/19 20:00 Antibody Screen POSITIVE 01/25/19 20:00 Antibody Identification Anti-D 01/25/19 20:00 Crossmatch See Detail 01/25/19 20:00 - Physical Exam Vitals and I&O: Vital Signs Temp 98.3 F 01/29/19 07:34 Pulse 77 01/29/19 07:34 Resp 20 01/29/19 07:34 BP 144/91 01/29/19 09:45 Pulse Ox 97 01/29/19 07:34 Intake & Output 01/28/19 01/29/19 01/29/19 18:59 06:59 18:59 Intake Total 1161.667 300 Output Total 750 Balance 1161.667 -450 Weight (lbs) 80.286 kg 80.286 kg Intake: Intake, IV Amount 761.667 D5-0.45NS 1,000 ml @ 50 761.667 mls/hr IV .Q20H [facility] Rx#: [id number] Oral 400 300 Output: Urine 750 Other: # Voids 3 # Bowel Movements 0 Weight Source Bedscale Bedscale Active Medications: Current Medications Albuterol Sulfate (Albuterol 2.5mg/3ml Neb Ud) 2.5 mg HHN Q4HRT PRN PRN Reason: Shortness of Breath Stop: 03/28/19 07:20 Ascorbic Acid (Vitamin C) 500 mg PO BID GURPREET Stop: 03/28/19 08:59 Last Admin: 01/29/19 09:45 Dose: 500 mg Folic Acid (Folate) 1 mg PO DAILY GURPREET Stop: 03/28/19 08:59 Last Admin: 01/29/19 09:46 Dose: 1 mg Furosemide (Lasix) 40 mg PO BID GURPREET Stop: 03/28/19 08:59 Last Admin: 01/29/19 09:45 Dose: 40 mg Dextrose/Sodium Chloride (D5-0.45ns) 1,000 mls @ 50 mls/hr IV .Q20H [facility] Stop: 03/26/19 19:53 Last Admin: 01/28/19 08:28 Dose: 50 mls/hr Ferric Sodium Gluconate Complex 125 mg/ Sodium Chloride 110 mls @ 100 mls/hr IV Q24HR [facility] Stop: 02/04/19 10:59 Ibuprofen (Motrin) 600 mg PO Q6H PRN PRN Reason: Pain (Mild) Stop: 03/27/19 20:12 Lactobacillus Rhamnosus (Culturelle 15b) 1 each PO DAILY [facility] Stop: 03/28/19 08:59 Last Admin: 01/29/19 09:46 Dose: 1 each Lactulose (Cephulac) 20 gm PO BID [facility] Stop: 03/28/19 08:59 Last Admin: 01/29/19 09:46 Dose: 20 gm Magnesium Oxide (Mag-Oxide) 400 mg PO DAILY [facility] Stop: 03/28/19 08:59 Last Admin: 01/29/19 09:45 Dose: 400 mg Morphine Sulfate (Morphine) 1 mg IVP Q4HR PRN PRN Reason: Pain (Moderate) Stop: 03/26/19 23:58 Physical Exam: Patient was admitted with Ventral hernia, Patient is high risk for surgery. General: weak HEENT: NC/AT Neck: Supple Lungs: CTAB Cardiovascular: RRR, Normal S1 Abdomen: tender Extremities: clear Neurological: no change Internal Medicine Assmt/Plan - Assessment Assessment: Ventral Hernia. Pancytopenia. History of Hepatitis C with Cirrhosis. COPD. Leukopenia. Anemia. Thrombocytopenia. - Plan Plan: Continuation of care. Monitor Labs, monitor hemoglobin levels. Continue present meds as directed. Respiratory treatments and Pulmonary support prn. Supplemental Oxygen prn. Aspiration precaution. Deep suctioning prn. Monitor Diet/Nutritional support. Pain Management. Physical therapy. Occupational therapy. Safety precaution. Supportive care. Fall precaution, frequent nursing rounds, and as needed restraints to prevent fall. Continue collaborating with consulting specialists, case management and nursing team. Will Monitor patient and continue present care management. Nutritional Asmnt/Malnutr-PDOC - Dietary Evaluation Malnutrition Findings (Please click <Entered> for more info): Nutritional Asmnt/Malnutrition Start: 01/26/19 14: 50 Text: Status: Complete Freq: Protocol: Document 01/26/19 14:50 SKYLAR (Rec: 01/26/19 14:53 [email or web address]) Nutritional Asmnt/Malnutrition Patient General Information Nutritional Screening High Risk Diagnosis Pancytopenia, ventral hernia Pertinent Medical Hx/Surgical Hx Hepatitis C, Liver Cirrhosis with Pancytopenia, Leukopenia, Anemia, Thrombocytopenia Subjective Information Pt is a 58-year-old male admitted on 01/25 c/o abdominal pain and cough. Pt had surgery for ventral hernia last March 2018. Pt is currently on NPO status since 01/26 midnight d/t Abdomen CT scan. Per [facility] [place], NPO status may remain for today and waiting for blood transfusion today. Unable to assess usual diet at home since Pt was sleeping at time of visit. Per H&P Report, CT scan showed large ventral hernia, irregular hepatic contour with splenomegaly and ascites consistent with changes of cirrhosis, cardiomegaly with coronary artery and atherosclerotic condition. HT: 511 WT: 177 LB (80.45 kg) BMI: 24.68 (Normal) GI: Ventral Hernia, Abdominal pain, soft, Non-Tender, Large, Round, Distended, Ascitic BM: Not noted I/O: 250/1 (249) Skin: WNL, Warm, Dry, Elastic, Intact, Scar on abdomen, past ventral hernia repair Jet: 20 Diet Order: NPO Estimated Energy Needs: (Adult , CBW) 1322-4963 kcals (25-30 kcals/ kg) 64-80 g Pro (0.8-1.0 g/kg) 4214-5402 ml (25-30 ml/kg) Current Diet Order/ Nutrition Support NPO Pertinent Medications D5-0.45ns 1000mls @50mls/hr IV Q20H Pertinent Labs 01/26: Hgb/Hct 7.8/24.9, Na 134, Glucose 125, Ca 8.5 01/25: Hgb/Hct 7.8/24.3, Cl 108, Glucose 106, Alb 3.3 Nutritional Hx/Data Height 1.8 m Height (Calculated Centimeters) 180.3 Current Weight (lbs) 80.286 kg Weight (Calculated Kilograms) 80.3 Weight (Calculated Grams) 46371.8 [place] Body Weight 75.3 kg % [place] Body Weight 106 Body Mass Index (BMI) 24.7 Weight Status Approriate GI Symptoms GI Symptoms None Last BM Not noted Skin Integrity/Comment: WNL, Warm, Dry, Elastic, Intact, Scar on abdomen, past ventral hernia repair Jet: 20 Estimated Nutritional Goals BEE in Kcals: Using Current wt Calories/Kcals/Kg 25-30 Kcals Calculated 9953-7555 Protein: Using Current wt Protein g/k.8-1.0 Protein Calculated 64-80 Fluid: ml 2655-3792 ml (25-30 ml/kg) Nutritional Problem 1. Problem Problem Inadequate energy intake Etiology r/t Abdomen CT scan and pending result Signs/Symptoms: aeb NPO status. Malnutrition Related to Morbid Obesity Malnutrition related to morbid obesity No Intervention/Recommendation Comments 1.Continue with NPO status as medically appropriate. Expected Outcomes/Goals Expected Outcomes/Goals 1.Monitor on NPO status, wt, nutrition related labs, and skin integrity. 2.F/U as high risk in 2-3 days , 01/28-01/29 Physician Parameters for PEM Normal Weight % 90% - 110% (Normal)
[2019-01-29] MEDS: Sodium Ferric Gluconate 125 MG in Sodium Chloride 0.9% 100 ML IV SCH (11:56)
[2019-01-29] MEDS: D5-0.45NS 1,000 ML IV SCH (11:56)
[2019-01-30] MEDS: Lactobacillus Rhamnosus GG 15 Billion CFU CAP.SPRINK PO SCH (08:49)
[2019-01-30] MEDS: Lactulose 10 Gm/15 mL 30mL UDC PO SCH ×3 (08:49→16:49)
[2019-01-30] MEDS: Sodium Ferric Gluconate 125 MG in Sodium Chloride 0.9% 100 ML IV SCH (11:18)
--- NOTE | 2019-01-30 14:33 | General Progress Note ---
Subjective - Review of Systems Service Date: 01/30/19 Subjective: weak, sleepy Objective - Results Result Diagrams: 01/27/19 08:00 01/26/19 05:30 Recent Labs: Laboratory Last Values WBC 3.7 Th/cmm (4.8-10.8) L 01/27/19 08:00 RBC 3.97 Mil/cmm (4.30-5.70) L 01/27/19 08:00 Hgb 9.2 gm/dL (12-16) L 01/27/19 08:00 Hct 28.7 % (41.0-60) L 01/27/19 08:00 MCV 72.3 fl (80-99) L 01/27/19 08:00 MCH 23.1 pg (26.0-30.0) L 01/27/19 08:00 MCHC Differential 31.9 pg (28.0-36.0) 01/27/19 08:00 RDW 18.0 % (11.5-20.0) 01/27/19 08:00 Plt Count 71 Th/cmm (150-400) L 01/27/19 08:00 MPV 8.1 fl 01/27/19 08:00 Add Manual Diff YES 01/27/19 08:00 Neutrophils % [employer]ICAL [employer]IETY DIRECTOR 01/27/19 08:00 Band Neutrophils % 0 % (0-10) 01/27/19 08:00 Lymphocytes % H[employer]ORICAL SOCIETY DIRECTOR 01/27/19 08:00 Monocytes % H[employer]ICAL SOCIETY DIRECTOR 01/27/19 08:00 Eosinophils % HISTORICAL SOCIETY DIRECTOR 01/27/19 08:00 Basophils % H[employer]ORICAL SOCIETY DIRECTOR 01/27/19 08:00 Neutrophils (Manual) 68 % (40-80) 01/27/19 08:00 Lymphocytes 21 % (20-50) 01/27/19 08:00 Monocytes 8 % (2-10) 01/27/19 08:00 Eosinophils 3 % (0-5) 01/27/19 08:00 Basophils 0 % (0-3) 01/27/19 08:00 Platelet Estimate DECREASED PLATELETS (NORMAL) 01/27/19 08:00 Poikilocytosis 1+ 01/25/19 17:00 Anisocytosis 1+ 01/25/19 17:00 Microcytosis 3+ 01/26/19 05:30 RBC Morph Micro Appear ABNORMAL (NORMAL) 01/25/19 17:00 PT 12.1 SECONDS (9.5-11.5) H 01/25/19 17:00 INR 1.17 (0.5-1.4) 01/25/19 17:00 PTT (Actin FS) 27.1 SECONDS (26.0-38.0) 01/25/19 17:00 Sodium 134 mEq/L (136-145) L 01/26/19 05:30 Potassium 4.1 mEq/L (3.5-5.1) 01/26/19 05:30 Chloride 107 mEq/L (98-107) 01/26/19 05:30 Carbon Dioxide 22.0 mEq/L (21.0-31.0) 01/26/19 05:30 Anion Gap 9.1 (7.0-16.0) 01/26/19 05:30 BUN 12 mg/dL (7-25) 01/26/19 05:30 Creatinine 0.7 mg/dL (0.7-1.3) 01/26/19 05:30 Est GFR ( Amer) > 60.0 ml/min (>90) 01/26/19 05:30 Est GFR (Non-Af Amer) > 60.0 ml/min 01/26/19 05:30 BUN/Creatinine Ratio 17.1 01/26/19 05:30 Glucose 125 mg/dL (70-105) H 01/26/19 05:30 Whole Bld Lactic Acid 0.69 mmol/L (0.60-1.99) 01/25/19 17:00 Calcium 8.5 mg/dL (8.6-10.3) L 01/26/19 05:30 Iron 16 ug/dL (38-169) L 01/26/19 15:00 TIBC 358 ug/dL (250-450) 01/26/19 15:00 Iron Saturation 4 % (15-55) L 01/26/19 15:00 Unsaturated IBC 342 ug/dL (111-343) 01/26/19 15:00 Ferritin 8 ng/mL (30-400) L 01/26/19 15:00 Total Bilirubin 0.7 mg/dL (0.3-1.0) 01/25/19 17:00 Direct Bilirubin 0.37 mg/dL (0.0-0.2) H 01/25/19 17:00 AST 40 U/L (13-39) H 01/25/19 17:00 ALT 36 U/L (7-52) 01/25/19 17:00 Alkaline Phosphatase 124 U/L (34-104) H 01/25/19 17:00 Total Protein 6.5 gm/dL (6.0-8.3) 01/25/19 17:00 Albumin 3.3 gm/dL (4.2-5.5) L 01/25/19 17:00 Globulin 3.2 gm/dL 01/25/19 17:00 Albumin/Globulin Ratio 1.0 (1.0-1.8) 01/25/19 17:00 Amylase 32 U/L (29-103) 01/26/19 05:30 Lipase 38 U/L (11-82) 01/25/19 17:00 Vitamin B12 1189 pg/mL (232-1245) 01/26/19 15:00 Folic Acid 12.5 ng/mL (>3.0) 01/26/19 15:00 TSH 0.74 uIU/ml (0.34-5.60) 01/26/19 05:30 Urine Source RANDOM 01/26/19 19:00 Urine Color YELLOW 01/26/19 19:00 Urine Clarity CLEAR (CLEAR) 01/26/19 19:00 Urine pH 5.5 (4.6 - 8.0) 01/26/19 19:00 Ur Specific [place] 1.020 (1.005-1.030) 01/26/19 19:00 Urine Protein NEGATIVE mg/dL (NEGATIVE) 01/26/19 19:00 Urine Glucose (UA) NEGATIVE mg/dL (NEGATIVE) 01/26/19 19:00 Urine Ketones NEGATIVE mg/dL (NEGATIVE) 01/26/19 19:00 Urine Blood NEGATIVE (NEGATIVE) 01/26/19 19:00 Urine Nitrate NEGATIVE (NEGATIVE) 01/26/19 19:00 Urine Bilirubin NEGATIVE (NEGATIVE) 01/26/19 19:00 Urine Urobilinogen 1.0 E.U./dL (0.2 - 1.0) 01/26/19 19:00 Ur Leukocyte Esterase NEGATIVE (NEGATIVE) 01/26/19 19:00 Urine RBC NONE SEEN /hpf (0-5) 01/26/19 19:00 Urine WBC NONE SEEN /hpf (0-5) 01/26/19 19:00 Ur Epithelial Cells NONE SEEN /lpf (FEW) 01/26/19 19:00 Urine Bacteria 1+ /hpf (NONE SEEN) H 01/26/19 19:00 Stool Occult Blood POSITIVE (NEGATIVE) H 01/30/19 09:25 Blood Type O NEGATIVE 01/25/19 20:00 Antibody Screen POSITIVE 01/25/19 20:00 Antibody Identification Anti-D 01/25/19 20:00 Crossmatch See Detail 01/25/19 20:00 - Physical Exam Vitals and I&O: Vital Signs Temp 98.3 F 01/30/19 12:00 Pulse 84 01/30/19 12:00 Resp 20 01/30/19 12:00 BP 135/78 01/30/19 12:00 Pulse Ox 96 01/30/19 12:00 Intake & Output 01/29/19 01/30/19 01/30/19 18:59 06:59 18:59 Intake Total 1215 500 Output Total 500 Balance 1215 0 Weight (lbs) 80.286 kg 80.286 kg Intake: Intake, IV Amount 110 Sodium Ferric Gluconate 110 125 mg In Sodium Chloride 0.9% 100 ml @ 100 mls/hr IV Q24HR [facility] Rx#: [id number] Oral 1105 500 Output: Urine 500 Other: # Voids 3 Weight Source Bedscale Bedscale Active Medications: Current Medications Albuterol Sulfate (Albuterol 2.5mg/3ml Neb Ud) 2.5 mg HHN Q4HRT PRN PRN Reason: Shortness of Breath Stop: 03/28/19 07:20 Ascorbic Acid (Vitamin C) 500 mg PO BID GURPREET Stop: 03/28/19 08:59 Last Admin: 01/30/19 08:49 Dose: 500 mg Folic Acid (Folate) 1 mg PO DAILY GUR[facility] Stop: 03/28/19 08:59 Last Admin: 01/30/19 08:49 Dose: 1 mg Furosemide (Lasix) 40 mg PO BID GURPRE[facility] Stop: 03/28/19 08:59 Last Admin: 01/30/19 08:49 Dose: 40 mg Dextrose/Sodium Chloride (D5-0.45ns) 1,000 mls @ 50 mls/hr IV .Q20H [facility] Stop: 03/26/19 19:53 Last Admin: 01/29/19 11:56 Dose: 50 mls/hr Ferric Sodium Gluconate Complex 125 mg/ Sodium Chloride 110 mls @ 100 mls/hr IV Q24HR [facility] Stop: 02/04/19 10:59 Last Admin: 01/30/19 11:18 Dose: 100 mls/hr Ibuprofen (Motrin) 600 mg PO Q6H PRN PRN Reason: Pain (Mild) Stop: 03/27/19 20:12 Lactobacillus Rhamnosus (Culturelle 15b) 1 each PO DAILY [facility] Stop: 03/28/19 08:59 Last Admin: 01/30/19 08:49 Dose: 1 each Lactulose (Cephulac) 20 gm PO BID GURPRE[facility] Stop: 03/28/19 08:59 Last Admin: 01/30/19 08:49 Dose: 20 gm Magnesium Oxide (Mag-Oxide) 400 mg PO DAILY [facility] Stop: 03/28/19 08:59 Last Admin: 01/30/19 08:49 Dose: 400 mg Morphine Sulfate (Morphine) 1 mg IVP Q4HR PRN PRN Reason: Pain (Moderate) Stop: 03/26/19 23:58 General: Alert, Oriented x3 HEENT: Atraumatic Neck: Supple Cardiovascular: Regular rate Abdomen: Bowel sounds, Soft, Other (ventral hernia), no Tender, no Hepatomegaly , no Splenomegaly, no Rebound, no Mass, no Guarding Psych/Mental Status: Mental status NL Assessment/Plan - Assessment Assessment: Pancytopenia most likely secondary to chronic hepatitis C and cirrhosis associated with splenomegaly. The CT scan of the abdomen without contrast was noted reporting ____ with splenomegaly and ascites consistent with cirrhosis. I will obtain the anemia workup. The patient was already transfused. He is high risk for bleeding from the GI tract from esophageal or gastric varices or other etiologies. No additional transfusion is needed. The patient is high risk for surgery. 01/30: iron deficiency anemia. continue iv ferrlecit. Nutritional Asmnt/Malnutr-PDOC - Dietary Evaluation Malnutrition Findings (Please click <Entered> for more info): Nutritional Asmnt/Malnutrition Start: 01/26/19 14: 50 Text: Status: Complete Freq: Protocol: Document 01/26/19 14:50 SKYLAR (Rec: 01/26/19 14:53 SKYLAR [id number]) Nutritional Asmnt/Malnutrition Patient General Information Nutritional Screening High Risk Diagnosis Pancytopenia, ventral hernia Pertinent Medical Hx/Surgical Hx Hepatitis C, Liver Cirrhosis with Pancytopenia, Leukopenia, Anemia, Thrombocytopenia Subjective Information Pt is a 58-year-old male admitted on 01/25 c/o abdominal pain and cough. Pt had surgery for ventral hernia last March 2018. Pt is currently on NPO status since 01/26 midnight d/t Abdomen CT scan. Per [facility] [place], NPO status may remain for today and waiting for blood transfusion today. Unable to assess usual diet at home since Pt was sleeping at time of visit. Per H&P Report, CT scan showed large ventral hernia, irregular hepatic contour with splenomegaly and ascites consistent with changes of cirrhosis, cardiomegaly with coronary artery and atherosclerotic condition. HT: 511 WT: 177 LB (80.45 kg) BMI: 24.68 (Normal) GI: Ventral Hernia, Abdominal pain, soft, Non-Tender, Large, Round, Distended, Ascitic BM: Not noted I/O: 250/1 (249) Skin: WNL, Warm, Dry, Elastic, Intact, Scar on abdomen, past ventral hernia repair Jet: 20 Diet Order: NPO Estimated Energy Needs: (Adult , CBW) 5123-5038 kcals (25-30 kcals/ kg) 64-80 g Pro (0.8-1.0 g/kg) 0422-5077 ml (25-30 ml/kg) Current Diet Order/ Nutrition Support NPO Pertinent Medications D5-0.45ns 1000mls @50mls/hr IV Q20H Pertinent Labs 01/26: Hgb/Hct 7.8/24.9, Na 134, Glucose 125, Ca 8.5 01/25: Hgb/Hct 7.8/24.3, Cl 108, Glucose 106, Alb 3.3 Nutritional Hx/Data Height 1.8 m Height (Calculated Centimeters) 180.3 Current Weight (lbs) 80.286 kg Weight (Calculated Kilograms) 80.3 Weight (Calculated Grams) 43829.8 [place] Body Weight 75.3 kg % [place] Body Weight 106 Body Mass Index (BMI) 24.7 Weight Status Approriate GI Symptoms GI Symptoms None Last BM Not noted Skin Integrity/Comment: WNL, Warm, Dry, Elastic, Intact, Scar on abdomen, past ventral hernia repair Jet: 20 Estimated Nutritional Goals BEE in Kcals: Using Current wt Calories/Kcals/Kg 25-30 Kcals Calculated 3664-2115 Protein: Using Current wt Protein g/k.8-1.0 Protein Calculated 64-80 Fluid: ml 7323-0197 ml (25-30 ml/kg) Nutritional Problem 1. Problem Problem Inadequate energy intake Etiology r/t Abdomen CT scan and pending result Signs/Symptoms: aeb NPO status. Malnutrition Related to Morbid Obesity Malnutrition related to morbid obesity No Intervention/Recommendation Comments 1.Continue with NPO status as medically appropriate. Expected Outcomes/Goals Expected Outcomes/Goals 1.Monitor on NPO status, wt, nutrition related labs, and skin integrity. 2.F/U as high risk in 2-3 days , 01/28-01/29 Physician Parameters for PEM Normal Weight % 90% - 110% (Normal)
--- NOTE | 2019-01-30 16:04 | Internal Medicine Prog Note ---
Internal Medicine Subjective - Subjective Service Date: 01/30/19 Patient seen and examined:: with staff Patient is:: awake, verbal, confused Patient Complaints of:: other (ventral hernia.) Per staff patient has:: no adverse event, no episodes of fall Internal Medicine Objective - Results Result Diagrams: 01/27/19 08:00 01/26/19 05:30 Recent Labs: Laboratory Last Values WBC 3.7 Th/cmm (4.8-10.8) L 01/27/19 08:00 RBC 3.97 Mil/cmm (4.30-5.70) L 01/27/19 08:00 Hgb 9.2 gm/dL (12-16) L 01/27/19 08:00 Hct 28.7 % (41.0-60) L 01/27/19 08:00 MCV 72.3 fl (80-99) L 01/27/19 08:00 MCH 23.1 pg (26.0-30.0) L 01/27/19 08:00 MCHC Differential 31.9 pg (28.0-36.0) 01/27/19 08:00 RDW 18.0 % (11.5-20.0) 01/27/19 08:00 Plt Count 71 Th/cmm (150-400) L 01/27/19 08:00 MPV 8.1 fl 01/27/19 08:00 Add Manual Diff YES 01/27/19 08:00 Neutrophils % MACHINE SET UP TECHNICIAN 01/27/19 08:00 Band Neutrophils % 0 % (0-10) 01/27/19 08:00 Lymphocytes % MACHINE SET UP TECHNICIAN 01/27/19 08:00 Monocytes % MACHINE SET UP TECHNICIAN 01/27/19 08:00 Eosinophils % MACHINE SET UP TECHNICIAN 01/27/19 08:00 Basophils % MACHINE SET UP TECHNICIAN 01/27/19 08:00 Neutrophils (Manual) 68 % (40-80) 01/27/19 08:00 Lymphocytes 21 % (20-50) 01/27/19 08:00 Monocytes 8 % (2-10) 01/27/19 08:00 Eosinophils 3 % (0-5) 01/27/19 08:00 Basophils 0 % (0-3) 01/27/19 08:00 Platelet Estimate DECREASED PLATELETS (NORMAL) 01/27/19 08:00 Poikilocytosis 1+ 01/25/19 17:00 Anisocytosis 1+ 01/25/19 17:00 Microcytosis 3+ 01/26/19 05:30 RBC Morph Micro Appear ABNORMAL (NORMAL) 01/25/19 17:00 PT 12.1 SECONDS (9.5-11.5) H 01/25/19 17:00 INR 1.17 (0.5-1.4) 01/25/19 17:00 PTT (Actin FS) 27.1 SECONDS (26.0-38.0) 01/25/19 17:00 Sodium 134 mEq/L (136-145) L 01/26/19 05:30 Potassium 4.1 mEq/L (3.5-5.1) 01/26/19 05:30 Chloride 107 mEq/L (98-107) 01/26/19 05:30 Carbon Dioxide 22.0 mEq/L (21.0-31.0) 01/26/19 05:30 Anion Gap 9.1 (7.0-16.0) 01/26/19 05:30 BUN 12 mg/dL (7-25) 01/26/19 05:30 Creatinine 0.7 mg/dL (0.7-1.3) 01/26/19 05:30 Est GFR ( Amer) > 60.0 ml/min (>90) 01/26/19 05:30 Est GFR (Non-Af Amer) > 60.0 ml/min 01/26/19 05:30 BUN/Creatinine Ratio 17.1 01/26/19 05:30 Glucose 125 mg/dL (70-105) H 01/26/19 05:30 Whole Bld Lactic Acid 0.69 mmol/L (0.60-1.99) 01/25/19 17:00 Calcium 8.5 mg/dL (8.6-10.3) L 01/26/19 05:30 Iron 16 ug/dL (38-169) L 01/26/19 15:00 TIBC 358 ug/dL (250-450) 01/26/19 15:00 Iron Saturation 4 % (15-55) L 01/26/19 15:00 Unsaturated IBC 342 ug/dL (111-343) 01/26/19 15:00 Ferritin 8 ng/mL (30-400) L 01/26/19 15:00 Total Bilirubin 0.7 mg/dL (0.3-1.0) 01/25/19 17:00 Direct Bilirubin 0.37 mg/dL (0.0-0.2) H 01/25/19 17:00 AST 40 U/L (13-39) H 01/25/19 17:00 ALT 36 U/L (7-52) 01/25/19 17:00 Alkaline Phosphatase 124 U/L (34-104) H 01/25/19 17:00 Total Protein 6.5 gm/dL (6.0-8.3) 01/25/19 17:00 Albumin 3.3 gm/dL (4.2-5.5) L 01/25/19 17:00 Globulin 3.2 gm/dL 01/25/19 17:00 Albumin/Globulin Ratio 1.0 (1.0-1.8) 01/25/19 17:00 Amylase 32 U/L (29-103) 01/26/19 05:30 Lipase 38 U/L (11-82) 01/25/19 17:00 Vitamin B12 1189 pg/mL (232-1245) 01/26/19 15:00 Folic Acid 12.5 ng/mL (>3.0) 01/26/19 15:00 TSH 0.74 uIU/ml (0.34-5.60) 01/26/19 05:30 Urine Source RANDOM 01/26/19 19:00 Urine Color YELLOW 01/26/19 19:00 Urine Clarity CLEAR (CLEAR) 01/26/19 19:00 Urine pH 5.5 (4.6 - 8.0) 01/26/19 19:00 Ur Specific [place] 1.020 (1.005-1.030) 01/26/19 19:00 Urine Protein NEGATIVE mg/dL (NEGATIVE) 01/26/19 19:00 Urine Glucose (UA) NEGATIVE mg/dL (NEGATIVE) 01/26/19 19:00 Urine Ketones NEGATIVE mg/dL (NEGATIVE) 01/26/19 19:00 Urine Blood NEGATIVE (NEGATIVE) 01/26/19 19:00 Urine Nitrate NEGATIVE (NEGATIVE) 01/26/19 19:00 Urine Bilirubin NEGATIVE (NEGATIVE) 01/26/19 19:00 Urine Urobilinogen 1.0 E.U./dL (0.2 - 1.0) 01/26/19 19:00 Ur Leukocyte Esterase NEGATIVE (NEGATIVE) 01/26/19 19:00 Urine RBC NONE SEEN /hpf (0-5) 01/26/19 19:00 Urine WBC NONE SEEN /hpf (0-5) 01/26/19 19:00 Ur Epithelial Cells NONE SEEN /lpf (FEW) 01/26/19 19:00 Urine Bacteria 1+ /hpf (NONE SEEN) H 01/26/19 19:00 Stool Occult Blood POSITIVE (NEGATIVE) H 01/30/19 09:25 Blood Type O NEGATIVE 01/25/19 20:00 Antibody Screen POSITIVE 01/25/19 20:00 Antibody Identification Anti-D 01/25/19 20:00 Crossmatch See Detail 01/25/19 20:00 - Physical Exam Vitals and I&O: Vital Signs Temp 98.3 F 01/30/19 12:00 Pulse 84 01/30/19 12:00 Resp 20 01/30/19 12:00 BP 135/78 01/30/19 12:00 Pulse Ox 96 01/30/19 12:00 Intake & Output 01/29/19 01/30/19 01/30/19 18:59 06:59 18:59 Intake Total 1215 500 Output Total 500 Balance 1215 0 Weight (lbs) 80.286 kg 80.286 kg Intake: Intake, IV Amount 110 Sodium Ferric Gluconate 110 125 mg In Sodium Chloride 0.9% 100 ml @ 100 mls/hr IV Q24HR [facility] [place] Rx#: [id number] Oral 1105 500 Output: Urine 500 Other: # Voids 3 Weight Source Bedscale Bedscale Active Medications: Current Medications Albuterol Sulfate (Albuterol 2.5mg/3ml Neb Ud) 2.5 mg HHN Q4HRT PRN PRN Reason: Shortness of Breath Stop: 03/28/19 07:20 Ascorbic Acid (Vitamin C) 500 mg PO BID GURPREET Stop: 03/28/19 08:59 Last Admin: 01/30/19 08:49 Dose: 500 mg Folic Acid (Folate) 1 mg PO DAILY GURPREET Stop: 03/28/19 08:59 Last Admin: 01/30/19 08:49 Dose: 1 mg Furosemide (Lasix) 40 mg PO BID GURPREET Stop: 03/28/19 08:59 Last Admin: 01/30/19 08:49 Dose: 40 mg Dextrose/Sodium Chloride (D5-0.45ns) 1,000 mls @ 50 mls/hr IV .Q20H [facility] [place] Stop: 03/26/19 19:53 Last Admin: 01/29/19 11:56 Dose: 50 mls/hr Ferric Sodium Gluconate Complex 125 mg/ Sodium Chloride 110 mls @ 100 mls/hr IV Q24HR [facility] [place] Stop: 02/04/19 10:59 Last Admin: 01/30/19 11:18 Dose: 100 mls/hr Ibuprofen (Motrin) 600 mg PO Q6H PRN PRN Reason: Pain (Mild) Stop: 03/27/19 20:12 Lactobacillus Rhamnosus (Culturelle 15b) 1 each PO DAILY [facility] [place] Stop: 03/28/19 08:59 Last Admin: 01/30/19 08:49 Dose: 1 each Lactulose (Cephulac) 20 gm PO BID [facility] [place] Stop: 03/28/19 08:59 Last Admin: 01/30/19 08:49 Dose: 20 gm Magnesium Oxide (Mag-Oxide) 400 mg PO DAILY [facility] [place] Stop: 03/28/19 08:59 Last Admin: 01/30/19 08:49 Dose: 400 mg Morphine Sulfate (Morphine) 1 mg IVP Q4HR PRN PRN Reason: Pain (Moderate) Stop: 03/26/19 23:58 Physical Exam: Patient was admitted with Ventral hernia, Patient is high risk for surgery, Iron Deficiency Anemia. Remains very weak. General: weak HEENT: NC/AT Neck: Supple Lungs: CTAB Cardiovascular: RRR, Normal S1 Abdomen: tender Extremities: clear Neurological: no change Internal Medicine Assmt/Plan - Assessment Assessment: Ventral Hernia. Pancytopenia. History of Hepatitis C with Cirrhosis. COPD. Leukopenia. Iron Deficiency Anemia. Thrombocytopenia. - Plan Plan: Continuation of care. Monitor Labs, monitor hemoglobin levels. Continue present meds as directed. Respiratory treatments and Pulmonary support prn. Supplemental Oxygen prn. Aspiration precaution. Deep suctioning prn. Monitor Diet/Nutritional support. Pain Management. Physical therapy. Occupational therapy. Safety precaution. Supportive care. Fall precaution, frequent nursing rounds, and as needed restraints to prevent fall. Continue collaborating with consulting specialists, case management and nursing team. Will Monitor patient and continue present care management. Nutritional Asmnt/Malnutr-PDOC - Dietary Evaluation Malnutrition Findings (Please click <Entered> for more info): Nutritional Asmnt/Malnutrition Start: 01/26/19 14: 50 Text: Status: Complete Freq: Protocol: Document 01/26/19 14:50 SKYLAR (Rec: 01/26/19 14:53 SKYLAR [email or web address]) Nutritional Asmnt/Malnutrition Patient General Information Nutritional Screening High Risk Diagnosis Pancytopenia, ventral hernia Pertinent Medical Hx/Surgical Hx Hepatitis C, Liver Cirrhosis with Pancytopenia, Leukopenia, Anemia, Thrombocytopenia Subjective Information Pt is a 58-year-old male admitted on 01/25 c/o abdominal pain and cough. Pt had surgery for ventral hernia last March 2018. Pt is currently on NPO status since 01/26 midnight d/t Abdomen CT scan. Per [facility] [place], NPO status may remain for today and waiting for blood transfusion today. Unable to assess usual diet at home since Pt was sleeping at time of visit. Per H&P Report, CT scan showed large ventral hernia, irregular hepatic contour with splenomegaly and ascites consistent with changes of cirrhosis, cardiomegaly with coronary artery and atherosclerotic condition. HT: 511 WT: 177 LB (80.45 kg) BMI: 24.68 (Normal) GI: Ventral Hernia, Abdominal pain, soft, Non-Tender, Large, Round, Distended, Ascitic BM: Not noted I/O: 250/1 (249) Skin: WNL, Warm, Dry, Elastic, Intact, Scar on abdomen, past ventral hernia repair Jet: 20 Diet Order: NPO Estimated Energy Needs: (Adult , CBW) 2409-3658 kcals (25-30 kcals/ kg) 64-80 g Pro (0.8-1.0 g/kg) 4142-6247 ml (25-30 ml/kg) Current Diet Order/ Nutrition Support NPO Pertinent Medications D5-0.45ns 1000mls @50mls/hr IV Q20H Pertinent Labs 01/26: Hgb/Hct 7.8/24.9, Na 134, Glucose 125, Ca 8.5 01/25: Hgb/Hct 7.8/24.3, Cl 108, Glucose 106, Alb 3.3 Nutritional Hx/Data Height 1.8 m Height (Calculated Centimeters) 180.3 Current Weight (lbs) 80.286 kg Weight (Calculated Kilograms) 80.3 Weight (Calculated Grams) 44018.8 [place] Body Weight 75.3 kg % [place] Body Weight 106 Body Mass Index (BMI) 24.7 Weight Status Approriate GI Symptoms GI Symptoms None Last BM Not noted Skin Integrity/Comment: WNL, Warm, Dry, Elastic, Intact, Scar on abdomen, past ventral hernia repair Jet: 20 Estimated Nutritional Goals BEE in Kcals: Using Current wt Calories/Kcals/Kg 25-30 Kcals Calculated 9869-8648 Protein: Using Current wt Protein g/k.8-1.0 Protein Calculated 64-80 Fluid: ml 8846-3972 ml (25-30 ml/kg) Nutritional Problem 1. Problem Problem Inadequate energy intake Etiology r/t Abdomen CT scan and pending result Signs/Symptoms: aeb NPO status. Malnutrition Related to Morbid Obesity Malnutrition related to morbid obesity No Intervention/Recommendation Comments 1.Continue with NPO status as medically appropriate. Expected Outcomes/Goals Expected Outcomes/Goals 1.Monitor on NPO status, wt, nutrition related labs, and skin integrity. 2.F/U as high risk in 2-3 days , 01/28-01/29 Physician Parameters for PEM Normal Weight % 90% - 110% (Normal)
[2019-01-31 05:35] LABS: HEMATOCRIT 32.5 % (41.0-60); HEMOGLOBIN 10.3 gm/dL (12-16); MEAN CORPUSCULAR HEMOGLOBIN 23.2 pg (26.0-30.0); MEAN CORPUSCULAR HGB CONC 31.8 pg (28.0-36.0); RED BLOOD COUNT 4.45 Mil/cmm (4.30-5.70); RED CELL DISTRIBUTION WIDTH 19.4 % (11.5-20.0); WHITE BLOOD COUNT 4.3 Th/cmm (4.8-10.8)
[2019-01-31 05:46] LABS: BUN - UREA NITROGEN 16 mg/dL (7-25); CALCIUM SERUM 8.8 mg/dL (8.6-10.3); CARBON DIOXIDE 22.2 mEq/L (21.0-31.0); CHLORIDE 106 mEq/L (98-107); CREATININE - SERUM 0.8 mg/dL (0.7-1.3); GFR AFRICAN-AMERICAN > 60.0 ml/min (>90); GFR NON AFRICAN-AMERICAN > 60.0 ml/min; GLUCOSE 132 mg/dL (70-105); POTASSIUM SERUM 4.2 mEq/L (3.5-5.1); SODIUM SERUM 135 mEq/L (136-145)
[2019-01-31 07:22] LABS: BAND NEUTROPHILE 0 % (0-10); BASOPHIL 0 % (0-3); EOSINOPHIL 3 % (0-5); LYMPHOCYTE 24 % (20-50); MONOCYTE 5 % (2-10); NEUTROPHILS 68 % (40-80)
[2019-01-31 07:24] LABS: PLATELET COUNT 50 Th/cmm (150-400); PLATELET ESTIMATE DECREASED PLATELETS (NORMAL)
[2019-01-31] MEDS: Lactobacillus Rhamnosus GG 15 Billion CFU CAP.SPRINK PO SCH (08:37)
[2019-01-31] MEDS: Lactulose 10 Gm/15 mL 30mL UDC PO SCH ×2 (08:37→16:50)
--- NOTE | 2019-01-31 10:07 | General Progress Note ---
Subjective - Review of Systems Service Date: 01/31/19 Subjective: weak, sleepy Objective - Results Result Diagrams: 01/31/19 05:20 01/31/19 05:20 Recent Labs: Laboratory Last Values WBC 4.3 Th/cmm (4.8-10.8) L 01/31/19 05:20 RBC 4.45 Mil/cmm (4.30-5.70) 01/31/19 05:20 Hgb 10.3 gm/dL (12-16) L 01/31/19 05:20 Hct 32.5 % (41.0-60) L 01/31/19 05:20 MCV 73.0 fl (80-99) L 01/31/19 05:20 MCH 23.2 pg (26.0-30.0) L 01/31/19 05:20 MCHC Differential 31.8 pg (28.0-36.0) 01/31/19 05:20 RDW 19.4 % (11.5-20.0) 01/31/19 05:20 Plt Count 50 Th/cmm (150-400) L 01/31/19 05:20 MPV 8.1 fl 01/31/19 05:20 Add Manual Diff YES 01/31/19 05:20 Neutrophils % 2ND PRESSMAN 01/31/19 05:20 Band Neutrophils % 0 % (0-10) 01/31/19 05:20 Lymphocytes % 2ND PRESSMAN 01/31/19 05:20 Monocytes % 2ND PRESSMAN 01/31/19 05:20 Eosinophils % 2ND PRESSMAN 01/31/19 05:20 Basophils % 2ND PRESSMAN 01/31/19 05:20 Neutrophils (Manual) 68 % (40-80) 01/31/19 05:20 Lymphocytes 24 % (20-50) 01/31/19 05:20 Monocytes 5 % (2-10) 01/31/19 05:20 Eosinophils 3 % (0-5) 01/31/19 05:20 Basophils 0 % (0-3) 01/31/19 05:20 Platelet Estimate DECREASED PLATELETS (NORMAL) 01/31/19 05:20 Poikilocytosis 1+ 01/25/19 17:00 Anisocytosis 1+ 01/25/19 17:00 Microcytosis 3+ 01/26/19 05:30 RBC Morph Micro Appear ABNORMAL (NORMAL) 01/25/19 17:00 PT 12.1 SECONDS (9.5-11.5) H 01/25/19 17:00 INR 1.17 (0.5-1.4) 01/25/19 17:00 PTT (Actin FS) 27.1 SECONDS (26.0-38.0) 01/25/19 17:00 Sodium 135 mEq/L (136-145) L 01/31/19 05:20 Potassium 4.2 mEq/L (3.5-5.1) 01/31/19 05:20 Chloride 106 mEq/L (98-107) 01/31/19 05:20 Carbon Dioxide 22.2 mEq/L (21.0-31.0) 01/31/19 05:20 Anion Gap 11.0 (7.0-16.0) 01/31/19 05:20 BUN 16 mg/dL (7-25) 01/31/19 05:20 Creatinine 0.8 mg/dL (0.7-1.3) 01/31/19 05:20 Est GFR ( Amer) > 60.0 ml/min (>90) 01/31/19 05:20 Est GFR (Non-Af Amer) > 60.0 ml/min 01/31/19 05:20 BUN/Creatinine Ratio 20.0 01/31/19 05:20 Glucose 132 mg/dL (70-105) H 01/31/19 05:20 Whole Bld Lactic Acid 0.69 mmol/L (0.60-1.99) 01/25/19 17:00 Calcium 8.8 mg/dL (8.6-10.3) 01/31/19 05:20 Iron 16 ug/dL (38-169) L 01/26/19 15:00 TIBC 358 ug/dL (250-450) 01/26/19 15:00 Iron Saturation 4 % (15-55) L 01/26/19 15:00 Unsaturated IBC 342 ug/dL (111-343) 01/26/19 15:00 Ferritin 8 ng/mL (30-400) L 01/26/19 15:00 Total Bilirubin 0.7 mg/dL (0.3-1.0) 01/25/19 17:00 Direct Bilirubin 0.37 mg/dL (0.0-0.2) H 01/25/19 17:00 AST 40 U/L (13-39) H 01/25/19 17:00 ALT 36 U/L (7-52) 01/25/19 17:00 Alkaline Phosphatase 124 U/L (34-104) H 01/25/19 17:00 Total Protein 6.5 gm/dL (6.0-8.3) 01/25/19 17:00 Albumin 3.3 gm/dL (4.2-5.5) L 01/25/19 17:00 Globulin 3.2 gm/dL 01/25/19 17:00 Albumin/Globulin Ratio 1.0 (1.0-1.8) 01/25/19 17:00 Amylase 32 U/L (29-103) 01/26/19 05:30 Lipase 38 U/L (11-82) 01/25/19 17:00 Vitamin B12 1189 pg/mL (232-1245) 01/26/19 15:00 Folic Acid 12.5 ng/mL (>3.0) 01/26/19 15:00 TSH 0.74 uIU/ml (0.34-5.60) 01/26/19 05:30 Urine Source RANDOM 01/26/19 19:00 Urine Color YELLOW 01/26/19 19:00 Urine Clarity CLEAR (CLEAR) 01/26/19 19:00 Urine pH 5.5 (4.6 - 8.0) 01/26/19 19:00 Ur Specific [place] 1.020 (1.005-1.030) 01/26/19 19:00 Urine Protein NEGATIVE mg/dL (NEGATIVE) 01/26/19 19:00 Urine Glucose (UA) NEGATIVE mg/dL (NEGATIVE) 01/26/19 19:00 Urine Ketones NEGATIVE mg/dL (NEGATIVE) 01/26/19 19:00 Urine Blood NEGATIVE (NEGATIVE) 01/26/19 19:00 Urine Nitrate NEGATIVE (NEGATIVE) 01/26/19 19:00 Urine Bilirubin NEGATIVE (NEGATIVE) 01/26/19 19:00 Urine Urobilinogen 1.0 E.U./dL (0.2 - 1.0) 01/26/19 19:00 Ur Leukocyte Esterase NEGATIVE (NEGATIVE) 01/26/19 19:00 Urine RBC NONE SEEN /hpf (0-5) 01/26/19 19:00 Urine WBC NONE SEEN /hpf (0-5) 01/26/19 19:00 Ur Epithelial Cells NONE SEEN /lpf (FEW) 01/26/19 19:00 Urine Bacteria 1+ /hpf (NONE SEEN) H 01/26/19 19:00 Stool Occult Blood NEGATIVE (NEGATIVE) 01/30/19 14:50 Blood Type O NEGATIVE 01/25/19 20:00 Antibody Screen POSITIVE 01/25/19 20:00 Antibody Identification Anti-D 01/25/19 20:00 Crossmatch See Detail 01/25/19 20:00 - Physical Exam Vitals and I&O: Vital Signs Temp 98.2 F 01/31/19 07:33 Pulse 78 01/31/19 07:33 Resp 18 01/31/19 07:33 BP 126/82 01/31/19 08:38 Pulse Ox 95 01/31/19 07:33 Intake & Output 01/30/19 01/31/19 01/31/19 18:59 06:59 18:59 Intake Total 480 Output Total 2 Balance 478 Weight (lbs) 80.286 kg Intake: Oral 480 Output: Urine 2 Other: # Voids 2 # Bowel Movements 2 Stool Characteristics Soft Soft Formed Formed Weight Source Estimated Active Medications: Current Medications Albuterol Sulfate (Albuterol 2.5mg/3ml Neb Ud) 2.5 mg HHN Q4HRT PRN PRN Reason: Shortness of Breath Stop: 03/28/19 07:20 Ascorbic Acid (Vitamin C) 500 mg PO BID GURPREET Stop: 03/28/19 08:59 Last Admin: 01/31/19 08:37 Dose: 500 mg Folic Acid (Folate) 1 mg PO DAILY GURPREET Stop: 03/28/19 08:59 Last Admin: 01/31/19 08:38 Dose: 1 mg Furosemide (Lasix) 40 mg PO BID GURPREET Stop: 03/28/19 08:59 Last Admin: 01/31/19 08:38 Dose: 40 mg Dextrose/Sodium Chloride (D5-0.45ns) 1,000 mls @ 50 mls/hr IV .Q20H GURPREET Stop: 03/26/19 19:53 Last Admin: 01/29/19 11:56 Dose: 50 mls/hr Ferric Sodium Gluconate Complex 125 mg/ Sodium Chloride 110 mls @ 100 mls/hr IV Q24HR GURPREET Stop: 02/04/19 10:59 Last Admin: 01/30/19 11:18 Dose: 100 mls/hr Ibuprofen (Motrin) 600 mg PO Q6H PRN PRN Reason: Pain (Mild) Stop: 03/27/19 20:12 Lactobacillus Rhamnosus (Culturelle 15b) 1 each PO DAILY GURPREET Stop: 03/28/19 08:59 Last Admin: 01/31/19 08:37 Dose: 1 each Lactulose (Cephulac) 20 gm PO BID GURPREET Stop: 03/28/19 08:59 Last Admin: 01/31/19 08:37 Dose: 20 gm Magnesium Oxide (Mag-Oxide) 400 mg PO DAILY GURPREET Stop: 03/28/19 08:59 Last Admin: 01/31/19 08:37 Dose: 400 mg Morphine Sulfate (Morphine) 1 mg IVP Q4HR PRN PRN Reason: Pain (Moderate) Stop: 03/26/19 23:58 General: Alert, Oriented x3 HEENT: Atraumatic Neck: Supple Cardiovascular: Regular rate Abdomen: Bowel sounds, Soft, Other (ventral hernia), no Tender, no Hepatomegaly , no Splenomegaly, no Rebound, no Mass, no Guarding Psych/Mental Status: Mental status NL Assessment/Plan - Assessment Assessment: Pancytopenia most likely secondary to chronic hepatitis C and cirrhosis associated with splenomegaly. The CT scan of the abdomen without contrast was noted reporting ____ with splenomegaly and ascites consistent with cirrhosis. I will obtain the anemia workup. The patient was already transfused. He is high risk for bleeding from the GI tract from esophageal or gastric varices or other etiologies. No additional transfusion is needed. The patient is high risk for surgery. 01/31: iron deficiency anemia. stool OB positive. continue iv ferrlecit. plt lower from splenic sequestration . monitor cbc Nutritional Asmnt/Malnutr-PDOC - Dietary Evaluation Malnutrition Findings (Please click <Entered> for more info): Nutritional Asmnt/Malnutrition Start: 01/26/19 14: 50 Text: Status: Complete Freq: Protocol: Document 01/26/19 14:50 SKYLAR (Rec: 01/26/19 14:53 SKYLAR [id number]) Nutritional Asmnt/Malnutrition Patient General Information Nutritional Screening High Risk Diagnosis Pancytopenia, ventral hernia Pertinent Medical Hx/Surgical Hx Hepatitis C, Liver Cirrhosis with Pancytopenia, Leukopenia, Anemia, Thrombocytopenia Subjective Information Pt is a 58-year-old male admitted on 01/25 c/o abdominal pain and cough. Pt had surgery for ventral hernia last March 2018. Pt is currently on NPO status since 01/26 midnight d/t Abdomen CT scan. Per [facility] [place], NPO status may remain for today and waiting for blood transfusion today. Unable to assess usual diet at home since Pt was sleeping at time of visit. Per H&P Report, CT scan showed large ventral hernia, irregular hepatic contour with splenomegaly and ascites consistent with changes of cirrhosis, cardiomegaly with coronary artery and atherosclerotic condition. HT: 511 WT: 177 LB (80.45 kg) BMI: 24.68 (Normal) GI: Ventral Hernia, Abdominal pain, soft, Non-Tender, Large, Round, Distended, Ascitic BM: Not noted I/O: 250/1 (249) Skin: WNL, Warm, Dry, Elastic, Intact, Scar on abdomen, past ventral hernia repair Jet: 20 Diet Order: NPO Estimated Energy Needs: (Adult , CBW) 2837-2395 kcals (25-30 kcals/ kg) 64-80 g Pro (0.8-1.0 g/kg) 9717-9245 ml (25-30 ml/kg) Current Diet Order/ Nutrition Support NPO Pertinent Medications D5-0.45ns 1000mls @50mls/hr IV Q20H Pertinent Labs 01/26: Hgb/Hct 7.8/24.9, Na 134, Glucose 125, Ca 8.5 01/25: Hgb/Hct 7.8/24.3, Cl 108, Glucose 106, Alb 3.3 Nutritional Hx/Data Height 1.8 m Height (Calculated Centimeters) 180.3 Current Weight (lbs) 80.286 kg Weight (Calculated Kilograms) 80.3 Weight (Calculated Grams) 27317.8 [place] Body Weight 75.3 kg % [place] Body Weight 106 Body Mass Index (BMI) 24.7 Weight Status Approriate GI Symptoms GI Symptoms None Last BM Not noted Skin Integrity/Comment: WNL, Warm, Dry, Elastic, Intact, Scar on abdomen, past ventral hernia repair Jet: 20 Estimated Nutritional Goals BEE in Kcals: Using Current wt Calories/Kcals/Kg 25-30 Kcals Calculated 4532-1389 Protein: Using Current wt Protein g/k.8-1.0 Protein Calculated 64-80 Fluid: ml 1771-4146 ml (25-30 ml/kg) Nutritional Problem 1. Problem Problem Inadequate energy intake Etiology r/t Abdomen CT scan and pending result Signs/Symptoms: aeb NPO status. Malnutrition Related to Morbid Obesity Malnutrition related to morbid obesity No Intervention/Recommendation Comments 1.Continue with NPO status as medically appropriate. Expected Outcomes/Goals Expected Outcomes/Goals 1.Monitor on NPO status, wt, nutrition related labs, and skin integrity. 2.F/U as high risk in 2-3 days , 01/28-01/29 Physician Parameters for PEM Normal Weight % 90% - 110% (Normal)
[2019-01-31] MEDS: Sodium Ferric Gluconate 125 MG in Sodium Chloride 0.9% 100 ML IV SCH (10:54)
--- NOTE | 2019-01-31 15:18 | Internal Medicine Prog Note ---
Internal Medicine Subjective - Subjective Service Date: 01/31/19 Patient is:: awake, verbal, confused Patient Complaints of:: other (ventral hernia.) Per staff patient has:: no adverse event, no episodes of fall Internal Medicine Objective - Results Result Diagrams: 01/31/19 05:20 01/31/19 05:20 Recent Labs: Laboratory Last Values WBC 4.3 Th/cmm (4.8-10.8) L 01/31/19 05:20 RBC 4.45 Mil/cmm (4.30-5.70) 01/31/19 05:20 Hgb 10.3 gm/dL (12-16) L 01/31/19 05:20 Hct 32.5 % (41.0-60) L 01/31/19 05:20 MCV 73.0 fl (80-99) L 01/31/19 05:20 MCH 23.2 pg (26.0-30.0) L 01/31/19 05:20 MCHC Differential 31.8 pg (28.0-36.0) 01/31/19 05:20 RDW 19.4 % (11.5-20.0) 01/31/19 05:20 Plt Count 50 Th/cmm (150-400) L 01/31/19 05:20 MPV 8.1 fl 01/31/19 05:20 Add Manual Diff YES 01/31/19 05:20 Neutrophils % [employer] 01/31/19 05:20 Band Neutrophils % 0 % (0-10) 01/31/19 05:20 Lymphocytes % [employer] 01/31/19 05:20 Monocytes % [employer] AS[employer]ER 01/31/19 05:20 Eosinophils % [employer]ER 01/31/19 05:20 Basophils % [employer]ER 01/31/19 05:20 Neutrophils (Manual) 68 % (40-80) 01/31/19 05:20 Lymphocytes 24 % (20-50) 01/31/19 05:20 Monocytes 5 % (2-10) 01/31/19 05:20 Eosinophils 3 % (0-5) 01/31/19 05:20 Basophils 0 % (0-3) 01/31/19 05:20 Platelet Estimate DECREASED PLATELETS (NORMAL) 01/31/19 05:20 Poikilocytosis 1+ 01/25/19 17:00 Anisocytosis 1+ 01/25/19 17:00 Microcytosis 3+ 01/26/19 05:30 RBC Morph Micro Appear ABNORMAL (NORMAL) 01/25/19 17:00 PT 12.1 SECONDS (9.5-11.5) H 01/25/19 17:00 INR 1.17 (0.5-1.4) 01/25/19 17:00 PTT (Actin FS) 27.1 SECONDS (26.0-38.0) 01/25/19 17:00 Sodium 135 mEq/L (136-145) L 01/31/19 05:20 Potassium 4.2 mEq/L (3.5-5.1) 01/31/19 05:20 Chloride 106 mEq/L (98-107) 01/31/19 05:20 Carbon Dioxide 22.2 mEq/L (21.0-31.0) 01/31/19 05:20 Anion Gap 11.0 (7.0-16.0) 01/31/19 05:20 BUN 16 mg/dL (7-25) 01/31/19 05:20 Creatinine 0.8 mg/dL (0.7-1.3) 01/31/19 05:20 Est GFR ( Amer) > 60.0 ml/min (>90) 01/31/19 05:20 Est GFR (Non-Af Amer) > 60.0 ml/min 01/31/19 05:20 BUN/Creatinine Ratio 20.0 01/31/19 05:20 Glucose 132 mg/dL (70-105) H 01/31/19 05:20 Whole Bld Lactic Acid 0.69 mmol/L (0.60-1.99) 01/25/19 17:00 Calcium 8.8 mg/dL (8.6-10.3) 01/31/19 05:20 Iron 16 ug/dL (38-169) L 01/26/19 15:00 TIBC 358 ug/dL (250-450) 01/26/19 15:00 Iron Saturation 4 % (15-55) L 01/26/19 15:00 Unsaturated IBC 342 ug/dL (111-343) 01/26/19 15:00 Ferritin 8 ng/mL (30-400) L 01/26/19 15:00 Total Bilirubin 0.7 mg/dL (0.3-1.0) 01/25/19 17:00 Direct Bilirubin 0.37 mg/dL (0.0-0.2) H 01/25/19 17:00 AST 40 U/L (13-39) H 01/25/19 17:00 ALT 36 U/L (7-52) 01/25/19 17:00 Alkaline Phosphatase 124 U/L (34-104) H 01/25/19 17:00 Total Protein 6.5 gm/dL (6.0-8.3) 01/25/19 17:00 Albumin 3.3 gm/dL (4.2-5.5) L 01/25/19 17:00 Globulin 3.2 gm/dL 01/25/19 17:00 Albumin/Globulin Ratio 1.0 (1.0-1.8) 01/25/19 17:00 Amylase 32 U/L (29-103) 01/26/19 05:30 Lipase 38 U/L (11-82) 01/25/19 17:00 Vitamin B12 1189 pg/mL (232-1245) 01/26/19 15:00 Folic Acid 12.5 ng/mL (>3.0) 01/26/19 15:00 TSH 0.74 uIU/ml (0.34-5.60) 01/26/19 05:30 Urine Source RANDOM 01/26/19 19:00 Urine Color YELLOW 01/26/19 19:00 Urine Clarity CLEAR (CLEAR) 01/26/19 19:00 Urine pH 5.5 (4.6 - 8.0) 01/26/19 19:00 Ur Specific [place] 1.020 (1.005-1.030) 01/26/19 19:00 Urine Protein NEGATIVE mg/dL (NEGATIVE) 01/26/19 19:00 Urine Glucose (UA) NEGATIVE mg/dL (NEGATIVE) 01/26/19 19:00 Urine Ketones NEGATIVE mg/dL (NEGATIVE) 01/26/19 19:00 Urine Blood NEGATIVE (NEGATIVE) 01/26/19 19:00 Urine Nitrate NEGATIVE (NEGATIVE) 01/26/19 19:00 Urine Bilirubin NEGATIVE (NEGATIVE) 01/26/19 19:00 Urine Urobilinogen 1.0 E.U./dL (0.2 - 1.0) 01/26/19 19:00 Ur Leukocyte Esterase NEGATIVE (NEGATIVE) 01/26/19 19:00 Urine RBC NONE SEEN /hpf (0-5) 01/26/19 19:00 Urine WBC NONE SEEN /hpf (0-5) 01/26/19 19:00 Ur Epithelial Cells NONE SEEN /lpf (FEW) 01/26/19 19:00 Urine Bacteria 1+ /hpf (NONE SEEN) H 01/26/19 19:00 Stool Occult Blood NEGATIVE (NEGATIVE) 01/30/19 14:50 Blood Type O NEGATIVE 01/25/19 20:00 Antibody Screen POSITIVE 01/25/19 20:00 Antibody Identification Anti-D 01/25/19 20:00 Crossmatch See Detail 01/25/19 20:00 - Physical Exam Vitals and I&O: Vital Signs Temp 98 F 01/31/19 14:52 Pulse 81 01/31/19 14:52 Resp 17 01/31/19 14:52 BP 141/78 01/31/19 14:52 Pulse Ox 96 01/31/19 14:52 Intake & Output 01/30/19 01/31/19 01/31/19 18:59 06:59 18:59 Intake Total 110 480 Output Total 2 Balance 110 478 Weight (lbs) 177 lb Intake: Intake, IV Amount 110 Sodium Ferric Gluconate 110 125 mg In Sodium Chloride 0.9% 100 ml @ 100 mls/hr IV Q24HR [facility] Rx#: [id number] Oral 480 Output: Urine 2 Other: # Voids 2 # Bowel Movements 2 Stool Characteristics Soft Soft Soft Formed Formed Formed Weight Source Estimated Active Medications: Current Medications Albuterol Sulfate (Albuterol 2.5mg/3ml Neb Ud) 2.5 mg HHN Q4HRT PRN PRN Reason: Shortness of Breath Stop: 03/28/19 07:20 Ascorbic Acid (Vitamin C) 500 mg PO BID [facility] Stop: 03/28/19 08:59 Last Admin: 01/31/19 08:37 Dose: 500 mg Folic Acid (Folate) 1 mg PO DAILY [facility] Stop: 03/28/19 08:59 Last Admin: 01/31/19 08:38 Dose: 1 mg Furosemide (Lasix) 40 mg PO BID [facility] Stop: 03/28/19 08:59 Last Admin: 01/31/19 08:38 Dose: 40 mg Dextrose/Sodium Chloride (D5-0.45ns) 1,000 mls @ 50 mls/hr IV .Q20H [facility] Stop: 03/26/19 19:53 Last Admin: 01/29/19 11:56 Dose: 50 mls/hr Ferric Sodium Gluconate Complex 125 mg/ Sodium Chloride 110 mls @ 100 mls/hr IV Q24HR [facility] Stop: 02/04/19 10:59 Last Admin: 01/31/19 10:54 Dose: 100 mls/hr Ibuprofen (Motrin) 600 mg PO Q6H PRN PRN Reason: Pain (Mild) Stop: 03/27/19 20:12 Lactobacillus Rhamnosus (Culturelle 15b) 1 each PO DAILY [facility] Stop: 03/28/19 08:59 Last Admin: 01/31/19 08:37 Dose: 1 each Lactulose (Cephulac) 20 gm PO BID [facility] Stop: 03/28/19 08:59 Last Admin: 01/31/19 08:37 Dose: 20 gm Magnesium Oxide (Mag-Oxide) 400 mg PO DAILY [facility] Stop: 03/28/19 08:59 Last Admin: 01/31/19 08:37 Dose: 400 mg Morphine Sulfate (Morphine) 1 mg IVP Q4HR PRN PRN Reason: Pain (Moderate) Stop: 03/26/19 23:58 General: weak HEENT: NC/AT Neck: Supple Lungs: CTAB Cardiovascular: RRR, Normal S1 Abdomen: tender Extremities: clear Neurological: no change Internal Medicine Assmt/Plan - Assessment Assessment: Ventral Hernia. Pancytopenia. History of Hepatitis C with Cirrhosis. COPD. Leukopenia. Iron Deficiency Anemia. Thrombocytopenia. - Plan Plan: Continuation of care. Monitor Labs, monitor hemoglobin levels. Continue present meds as directed. Respiratory treatments and Pulmonary support prn. Supplemental Oxygen prn. Aspiration precaution. Deep suctioning prn. Monitor Diet/Nutritional support. Pain Management. Physical therapy. Occupational therapy. Safety precaution. Supportive care. Fall precaution, frequent nursing rounds, and as needed restraints to prevent fall. Continue collaborating with consulting specialists, case management and nursing team. Will Monitor patient and continue present care management. Nutritional Asmnt/Malnutr-PDOC - Dietary Evaluation Malnutrition Findings (Please click <Entered> for more info): Nutritional Asmnt/Malnutrition Start: 01/26/19 14: 50 Text: Status: Complete Freq: Protocol: Document 01/26/19 14:50 SKYLAR (Rec: 01/26/19 14:53 [email or web address] [id number]) Nutritional Asmnt/Malnutrition Patient General Information Nutritional Screening High Risk Diagnosis Pancytopenia, ventral hernia Pertinent Medical Hx/Surgical Hx Hepatitis C, Liver Cirrhosis with Pancytopenia, Leukopenia, Anemia, Thrombocytopenia Subjective Information Pt is a 58-year-old male admitted on 01/25 c/o abdominal pain and cough. Pt had surgery for ventral hernia last March 2018. Pt is currently on NPO status since 01/26 midnight d/t Abdomen CT scan. Per TUR[facility] [place], NPO status may remain for today and waiting for blood transfusion today. Unable to assess usual diet at home since Pt was sleeping at time of visit. Per H&P Report, CT scan showed large ventral hernia, irregular hepatic contour with splenomegaly and ascites consistent with changes of cirrhosis, cardiomegaly with coronary artery and atherosclerotic condition. HT: 511 WT: 177 LB (80.45 kg) BMI: 24.68 (Normal) GI: Ventral Hernia, Abdominal pain, soft, Non-Tender, Large, Round, Distended, Ascitic BM: Not noted I/O: 250/1 (249) Skin: WNL, Warm, Dry, Elastic, Intact, Scar on abdomen, past ventral hernia repair Jet: 20 Diet Order: NPO Estimated Energy Needs: (Adult , CBW) 8109-6938 kcals (25-30 kcals/ kg) 64-80 g Pro (0.8-1.0 g/kg) 3704-7144 ml (25-30 ml/kg) Current Diet Order/ Nutrition Support NPO Pertinent Medications D5-0.45ns 1000mls @50mls/hr IV Q20H Pertinent Labs 01/26: Hgb/Hct 7.8/24.9, Na 134, Glucose 125, Ca 8.5 01/25: Hgb/Hct 7.8/24.3, Cl 108, Glucose 106, Alb 3.3 Nutritional Hx/Data Height 5 ft 11 in Height (Calculated Centimeters) 180.3 Current Weight (lbs) 177 lb Weight (Calculated Kilograms) 80.3 Weight (Calculated Grams) 46691.8 [place] Body Weight 75.3 kg % [place] Body Weight 106 Body Mass Index (BMI) 24.7 Weight Status Approriate GI Symptoms GI Symptoms None Last BM Not noted Skin Integrity/Comment: WNL, Warm, Dry, Elastic, Intact, Scar on abdomen, past ventral hernia repair Jet: 20 Estimated Nutritional Goals BEE in Kcals: Using Current wt Calories/Kcals/Kg 25-30 Kcals Calculated 5149-1736 Protein: Using Current wt Protein g/k.8-1.0 Protein Calculated 64-80 Fluid: ml 3000-7668 ml (25-30 ml/kg) Nutritional Problem 1. Problem Problem Inadequate energy intake Etiology r/t Abdomen CT scan and pending result Signs/Symptoms: aeb NPO status. Malnutrition Related to Morbid Obesity Malnutrition related to morbid obesity No Intervention/Recommendation Comments 1.Continue with NPO status as medically appropriate. Expected Outcomes/Goals Expected Outcomes/Goals 1.Monitor on NPO status, wt, nutrition related labs, and skin integrity. 2.F/U as high risk in 2-3 days , 01/28-01/29 Physician Parameters for PEM Normal Weight % 90% - 110% (Normal)
[2019-01-31] MEDS: Morphine Sulfate 2 mg/mL 1mL Syr IVP PRN (16:50)
[2019-02-01] MEDS: D5-0.45NS 1,000 ML IV SCH (04:57)
[2019-02-01] MEDS: Morphine Sulfate 2 mg/mL 1mL Syr IVP PRN ×2 (06:34→20:29)
[2019-02-01 07:18] LABS: % BASOPHILS 0.1 % (0.0-2.0); % EOSINOPHILS 4.8 % (0.0-5.0); % LYMPHOCYTES 21.1 % (20.0-50.0); % MONOCYTES 9.4 % (2.0-10.0); % NEUTROPHILS 64.6 % (40.0-80.0); EOSINOPHILE ABSOLUTE 0.2 Th/cmm (0.1-0.4); HEMATOCRIT 31.1 % (41.0-60); HEMOGLOBIN 9.8 gm/dL (12-16); LYMPHOCYTE ABSOLUTE 0.9 Th/cmm (1.5-3.0); MEAN CELL VOLUME 74.2 fl (80-99); MEAN CORPUSCULAR HEMOGLOBIN 23.3 pg (26.0-30.0); MEAN CORPUSCULAR HGB CONC 31.4 pg (28.0-36.0); MONOCYTE ABSOLUTE 0.4 Th/cmm (0.3-1.0); PLATELET COUNT 89 Th/cmm (150-400); RED BLOOD COUNT 4.19 Mil/cmm (4.30-5.70); RED CELL DISTRIBUTION WIDTH 20.4 % (11.5-20.0); WHITE BLOOD COUNT 4.5 Th/cmm (4.8-10.8)
[2019-02-01 07:40] LABS: ANION GAP 11.4 (7.0-16.0); BUN - UREA NITROGEN 19 mg/dL (7-25); CALCIUM SERUM 8.6 mg/dL (8.6-10.3); CARBON DIOXIDE 23.1 mEq/L (21.0-31.0); CHLORIDE 105 mEq/L (98-107); CREATININE - SERUM 0.8 mg/dL (0.7-1.3); GFR AFRICAN-AMERICAN > 60.0 ml/min (>90); GFR NON AFRICAN-AMERICAN > 60.0 ml/min; GLUCOSE 131 mg/dL (70-105); POTASSIUM SERUM 4.5 mEq/L (3.5-5.1); SODIUM SERUM 135 mEq/L (136-145)
[2019-02-01] MEDS: Lactobacillus Rhamnosus GG 15 Billion CFU CAP.SPRINK PO SCH (08:19)
[2019-02-01] MEDS: Lactulose 10 Gm/15 mL 30mL UDC PO SCH ×2 (08:20→17:38)
--- NOTE | 2019-02-01 10:15 | General Progress Note ---
Subjective - Review of Systems Service Date: 02/01/19 Subjective: weak, sleepy Objective - Results Result Diagrams: 02/01/19 06:30 02/01/19 06:30 Recent Labs: Laboratory Last Values WBC 4.5 Th/cmm (4.8-10.8) L 02/01/19 06:30 RBC 4.19 Mil/cmm (4.30-5.70) L 02/01/19 06:30 Hgb 9.8 gm/dL (12-16) L 02/01/19 06:30 Hct 31.1 % (41.0-60) L 02/01/19 06:30 MCV 74.2 fl (80-99) L 02/01/19 06:30 MCH 23.3 pg (26.0-30.0) L 02/01/19 06:30 MCHC Differential 31.4 pg (28.0-36.0) 02/01/19 06:30 RDW 20.4 % (11.5-20.0) H 02/01/19 06:30 Plt Count 89 Th/cmm (150-400) L 02/01/19 06:30 MPV 10.1 fl 02/01/19 06:30 Add Manual Diff YES 01/31/19 05:20 Neutrophils % 64.6 % (40.0-80.0) 02/01/19 06:30 Band Neutrophils % 0 % (0-10) 01/31/19 05:20 Lymphocytes % 21.1 % (20.0-50.0) 02/01/19 06:30 Monocytes % 9.4 % (2.0-10.0) 02/01/19 06:30 Eosinophils % 4.8 % (0.0-5.0) 02/01/19 06:30 Basophils % 0.1 % (0.0-2.0) 02/01/19 06:30 Neutrophils (Manual) 68 % (40-80) 01/31/19 05:20 Lymphocytes 24 % (20-50) 01/31/19 05:20 Monocytes 5 % (2-10) 01/31/19 05:20 Eosinophils 3 % (0-5) 01/31/19 05:20 Basophils 0 % (0-3) 01/31/19 05:20 Platelet Estimate DECREASED PLATELETS (NORMAL) 01/31/19 05:20 Poikilocytosis 1+ 01/25/19 17:00 Anisocytosis 1+ 01/25/19 17:00 Microcytosis 3+ 01/26/19 05:30 RBC Morph Micro Appear ABNORMAL (NORMAL) 01/25/19 17:00 PT 12.1 SECONDS (9.5-11.5) H 01/25/19 17:00 INR 1.17 (0.5-1.4) 01/25/19 17:00 PTT (Actin FS) 27.1 SECONDS (26.0-38.0) 01/25/19 17:00 Sodium 135 mEq/L (136-145) L 02/01/19 06:30 Potassium 4.5 mEq/L (3.5-5.1) 02/01/19 06:30 Chloride 105 mEq/L (98-107) 02/01/19 06:30 Carbon Dioxide 23.1 mEq/L (21.0-31.0) 02/01/19 06:30 Anion Gap 11.4 (7.0-16.0) 02/01/19 06:30 BUN 19 mg/dL (7-25) 02/01/19 06:30 Creatinine 0.8 mg/dL (0.7-1.3) 02/01/19 06:30 Est GFR ( Amer) > 60.0 ml/min (>90) 02/01/19 06:30 Est GFR (Non-Af Amer) > 60.0 ml/min 02/01/19 06:30 BUN/Creatinine Ratio 23.8 02/01/19 06:30 Glucose 131 mg/dL (70-105) H 02/01/19 06:30 Whole Bld Lactic Acid 0.69 mmol/L (0.60-1.99) 01/25/19 17:00 Calcium 8.6 mg/dL (8.6-10.3) 02/01/19 06:30 Iron 16 ug/dL (38-169) L 01/26/19 15:00 TIBC 358 ug/dL (250-450) 01/26/19 15:00 Iron Saturation 4 % (15-55) L 01/26/19 15:00 Unsaturated IBC 342 ug/dL (111-343) 01/26/19 15:00 Ferritin 8 ng/mL (30-400) L 01/26/19 15:00 Total Bilirubin 0.7 mg/dL (0.3-1.0) 01/25/19 17:00 Direct Bilirubin 0.37 mg/dL (0.0-0.2) H 01/25/19 17:00 AST 40 U/L (13-39) H 01/25/19 17:00 ALT 36 U/L (7-52) 01/25/19 17:00 Alkaline Phosphatase 124 U/L (34-104) H 01/25/19 17:00 Total Protein 6.5 gm/dL (6.0-8.3) 01/25/19 17:00 Albumin 3.3 gm/dL (4.2-5.5) L 01/25/19 17:00 Globulin 3.2 gm/dL 01/25/19 17:00 Albumin/Globulin Ratio 1.0 (1.0-1.8) 01/25/19 17:00 Amylase 32 U/L (29-103) 01/26/19 05:30 Lipase 38 U/L (11-82) 01/25/19 17:00 Vitamin B12 1189 pg/mL (232-1245) 01/26/19 15:00 Folic Acid 12.5 ng/mL (>3.0) 01/26/19 15:00 TSH 0.74 uIU/ml (0.34-5.60) 01/26/19 05:30 Urine Source RANDOM 01/26/19 19:00 Urine Color YELLOW 01/26/19 19:00 Urine Clarity CLEAR (CLEAR) 01/26/19 19:00 Urine pH 5.5 (4.6 - 8.0) 01/26/19 19:00 Ur Specific [place] 1.020 (1.005-1.030) 01/26/19 19:00 Urine Protein NEGATIVE mg/dL (NEGATIVE) 01/26/19 19:00 Urine Glucose (UA) NEGATIVE mg/dL (NEGATIVE) 01/26/19 19:00 Urine Ketones NEGATIVE mg/dL (NEGATIVE) 01/26/19 19:00 Urine Blood NEGATIVE (NEGATIVE) 01/26/19 19:00 Urine Nitrate NEGATIVE (NEGATIVE) 01/26/19 19:00 Urine Bilirubin NEGATIVE (NEGATIVE) 01/26/19 19:00 Urine Urobilinogen 1.0 E.U./dL (0.2 - 1.0) 01/26/19 19:00 Ur Leukocyte Esterase NEGATIVE (NEGATIVE) 01/26/19 19:00 Urine RBC NONE SEEN /hpf (0-5) 01/26/19 19:00 Urine WBC NONE SEEN /hpf (0-5) 01/26/19 19:00 Ur Epithelial Cells NONE SEEN /lpf (FEW) 01/26/19 19:00 Urine Bacteria 1+ /hpf (NONE SEEN) H 01/26/19 19:00 Stool Occult Blood NEGATIVE (NEGATIVE) 01/30/19 14:50 Blood Type O NEGATIVE 01/25/19 20:00 Antibody Screen POSITIVE 01/25/19 20:00 Antibody Identification Anti-D 01/25/19 20:00 Crossmatch See Detail 01/25/19 20:00 - Physical Exam Vitals and I&O: Vital Signs Temp 99.4 F 02/01/19 05:00 Pulse 84 02/01/19 05:00 Resp 20 02/01/19 05:00 BP 157/89 02/01/19 08:20 Pulse Ox 99 02/01/19 05:00 Intake & Output 01/31/19 02/01/19 02/01/19 18:59 06:59 18:59 Intake Total 800 480 Balance 800 480 Weight (lbs) 80.286 kg 80.286 kg Intake: Oral 800 480 Other: # Voids 3 4 # Bowel Movements 1 Stool Characteristics Soft Formed Weight Source Bedscale Bedscale Active Medications: Current Medications Albuterol Sulfate (Albuterol 2.5mg/3ml Neb Ud) 2.5 mg HHN Q4HRT PRN PRN Reason: Shortness of Breath Stop: 03/28/19 07:20 Ascorbic Acid (Vitamin C) 500 mg PO BID [facility] Stop: 03/28/19 08:59 Last Admin: 02/01/19 08:20 Dose: 500 mg Folic Acid (Folate) 1 mg PO DAILY [facility] Stop: 03/28/19 08:59 Last Admin: 02/01/19 08:19 Dose: 1 mg Furosemide (Lasix) 40 mg PO BID [facility] Stop: 03/28/19 08:59 Last Admin: 02/01/19 08:20 Dose: 40 mg Dextrose/Sodium Chloride (D5-0.45ns) 1,000 mls @ 50 mls/hr IV .Q20H [facility] Stop: 03/26/19 19:53 Last Admin: 02/01/19 04:57 Dose: 50 mls/hr Ferric Sodium Gluconate Complex 125 mg/ Sodium Chloride 110 mls @ 100 mls/hr IV Q24HR [facility] Stop: 02/04/19 10:59 Last Admin: 01/31/19 10:54 Dose: 100 mls/hr Ibuprofen (Motrin) 600 mg PO Q6H PRN PRN Reason: Pain (Mild) Stop: 03/27/19 20:12 Lactobacillus Rhamnosus (Culturelle 15b) 1 each PO DAILY [facility] Stop: 03/28/19 08:59 Last Admin: 02/01/19 08:19 Dose: 1 each Lactulose (Cephulac) 20 gm PO BID [facility] Stop: 03/28/19 08:59 Last Admin: 02/01/19 08:20 Dose: 20 gm Magnesium Oxide (Mag-Oxide) 400 mg PO DAILY [facility] Stop: 03/28/19 08:59 Last Admin: 02/01/19 08:19 Dose: 400 mg Morphine Sulfate (Morphine) 1 mg IVP Q4HR PRN PRN Reason: Pain (Moderate) Stop: 03/26/19 23:58 Last Admin: 02/01/19 06:34 Dose: 1 mg General: Alert, Oriented x3 HEENT: Atraumatic Neck: Supple Cardiovascular: Regular rate Abdomen: Bowel sounds, Soft, Other (ventral hernia), no Tender, no Hepatomegaly , no Splenomegaly, no Rebound, no Mass, no Guarding Psych/Mental Status: Mental status NL Assessment/Plan - Assessment Assessment: Pancytopenia most likely secondary to chronic hepatitis C and cirrhosis associated with splenomegaly. The CT scan of the abdomen without contrast was noted reporting ____ with splenomegaly and ascites consistent with cirrhosis. I will obtain the anemia workup. The patient was already transfused. He is high risk for bleeding from the GI tract from esophageal or gastric varices or other etiologies. No additional transfusion is needed. The patient is high risk for surgery. 02/01: iron deficiency anemia. stool OB positive. continue iv ferrlecit. cytopenia better from splenic sequestration . monitor cbc Nutritional Asmnt/Malnutr-PDOC - Dietary Evaluation Malnutrition Findings (Please click <Entered> for more info): Nutritional Asmnt/Malnutrition Start: 01/26/19 14: 50 Text: Status: Complete Freq: Protocol: Document 01/26/19 14:50 SKYLAR (Rec: 01/26/19 14:53 [email or web address]) Nutritional Asmnt/Malnutrition Patient General Information Nutritional Screening High Risk Diagnosis Pancytopenia, ventral hernia Pertinent Medical Hx/Surgical Hx Hepatitis C, Liver Cirrhosis with Pancytopenia, Leukopenia, Anemia, Thrombocytopenia Subjective Information Pt is a 58-year-old male admitted on 01/25 c/o abdominal pain and cough. Pt had surgery for ventral hernia last March 2018. Pt is currently on NPO status since 01/26 midnight d/t Abdomen CT scan. Per [facility] [place], NPO status may remain for today and waiting for blood transfusion today. Unable to assess usual diet at home since Pt was sleeping at time of visit. Per H&P Report, CT scan showed large ventral hernia, irregular hepatic contour with splenomegaly and ascites consistent with changes of cirrhosis, cardiomegaly with coronary artery and atherosclerotic condition. HT: 511 WT: 177 LB (80.45 kg) BMI: 24.68 (Normal) GI: Ventral Hernia, Abdominal pain, soft, Non-Tender, Large, Round, Distended, Ascitic BM: Not noted I/O: 250/1 (249) Skin: WNL, Warm, Dry, Elastic, Intact, Scar on abdomen, past ventral hernia repair Jet: 20 Diet Order: NPO Estimated Energy Needs: (Adult , CBW) 4676-5855 kcals (25-30 kcals/ kg) 64-80 g Pro (0.8-1.0 g/kg) 7020-4644 ml (25-30 ml/kg) Current Diet Order/ Nutrition Support NPO Pertinent Medications D5-0.45ns 1000mls @50mls/hr IV Q20H Pertinent Labs 01/26: Hgb/Hct 7.8/24.9, Na 134, Glucose 125, Ca 8.5 01/25: Hgb/Hct 7.8/24.3, Cl 108, Glucose 106, Alb 3.3 Nutritional Hx/Data Height 1.8 m Height (Calculated Centimeters) 180.3 Current Weight (lbs) 80.286 kg Weight (Calculated Kilograms) 80.3 Weight (Calculated Grams) 19907.8 [place] Body Weight 75.3 kg % [place] Body Weight 106 Body Mass Index (BMI) 24.7 Weight Status Approriate GI Symptoms GI Symptoms None Last BM Not noted Skin Integrity/Comment: WNL, Warm, Dry, Elastic, Intact, Scar on abdomen, past ventral hernia repair Jet: 20 Estimated Nutritional Goals BEE in Kcals: Using Current wt Calories/Kcals/Kg 25-30 Kcals Calculated 0236-0106 Protein: Using Current wt Protein g/k.8-1.0 Protein Calculated 64-80 Fluid: ml 7839-0354 ml (25-30 ml/kg) Nutritional Problem 1. Problem Problem Inadequate energy intake Etiology r/t Abdomen CT scan and pending result Signs/Symptoms: aeb NPO status. Malnutrition Related to Morbid Obesity Malnutrition related to morbid obesity No Intervention/Recommendation Comments 1.Continue with NPO status as medically appropriate. Expected Outcomes/Goals Expected Outcomes/Goals 1.Monitor on NPO status, wt, nutrition related labs, and skin integrity. 2.F/U as high risk in 2-3 days , 01/28-01/29 Physician Parameters for PEM Normal Weight % 90% - 110% (Normal)
[2019-02-01] MEDS ORDERED: [UNRECOGNIZED DRUG - OTHER] IV SCH (11:00)
[2019-02-01] MEDS ORDERED: SODIUM CHLORIDE 0.9% IV SCH (11:00)
[2019-02-01] MEDS: Sodium Ferric Gluconate 125 MG in Sodium Chloride 0.9% 100 ML IV SCH (11:48)
--- NOTE | 2019-02-01 14:00 | Internal Medicine Prog Note ---
Internal Medicine Subjective - Subjective Service Date: 02/01/19 Patient is:: awake, verbal Per staff patient has:: no adverse event, no episodes of fall Internal Medicine Objective - Results Result Diagrams: 02/01/19 06:30 02/01/19 06:30 Recent Labs: Laboratory Last Values WBC 4.5 Th/cmm (4.8-10.8) L 02/01/19 06:30 RBC 4.19 Mil/cmm (4.30-5.70) L 02/01/19 06:30 Hgb 9.8 gm/dL (12-16) L 02/01/19 06:30 Hct 31.1 % (41.0-60) L 02/01/19 06:30 MCV 74.2 fl (80-99) L 02/01/19 06:30 MCH 23.3 pg (26.0-30.0) L 02/01/19 06:30 MCHC Differential 31.4 pg (28.0-36.0) 02/01/19 06:30 RDW 20.4 % (11.5-20.0) H 02/01/19 06:30 Plt Count 89 Th/cmm (150-400) L 02/01/19 06:30 MPV 10.1 fl 02/01/19 06:30 Add Manual Diff YES 01/31/19 05:20 Neutrophils % 64.6 % (40.0-80.0) 02/01/19 06:30 Band Neutrophils % 0 % (0-10) 01/31/19 05:20 Lymphocytes % 21.1 % (20.0-50.0) 02/01/19 06:30 Monocytes % 9.4 % (2.0-10.0) 02/01/19 06:30 Eosinophils % 4.8 % (0.0-5.0) 02/01/19 06:30 Basophils % 0.1 % (0.0-2.0) 02/01/19 06:30 Neutrophils (Manual) 68 % (40-80) 01/31/19 05:20 Lymphocytes 24 % (20-50) 01/31/19 05:20 Monocytes 5 % (2-10) 01/31/19 05:20 Eosinophils 3 % (0-5) 01/31/19 05:20 Basophils 0 % (0-3) 01/31/19 05:20 Platelet Estimate DECREASED PLATELETS (NORMAL) 01/31/19 05:20 Poikilocytosis 1+ 01/25/19 17:00 Anisocytosis 1+ 01/25/19 17:00 Microcytosis 3+ 01/26/19 05:30 RBC Morph Micro Appear ABNORMAL (NORMAL) 01/25/19 17:00 PT 12.1 SECONDS (9.5-11.5) H 01/25/19 17:00 INR 1.17 (0.5-1.4) 01/25/19 17:00 PTT (Actin FS) 27.1 SECONDS (26.0-38.0) 01/25/19 17:00 Sodium 135 mEq/L (136-145) L 02/01/19 06:30 Potassium 4.5 mEq/L (3.5-5.1) 02/01/19 06:30 Chloride 105 mEq/L (98-107) 02/01/19 06:30 Carbon Dioxide 23.1 mEq/L (21.0-31.0) 02/01/19 06:30 Anion Gap 11.4 (7.0-16.0) 02/01/19 06:30 BUN 19 mg/dL (7-25) 02/01/19 06:30 Creatinine 0.8 mg/dL (0.7-1.3) 02/01/19 06:30 Est GFR ( Amer) > 60.0 ml/min (>90) 02/01/19 06:30 Est GFR (Non-Af Amer) > 60.0 ml/min 02/01/19 06:30 BUN/Creatinine Ratio 23.8 02/01/19 06:30 Glucose 131 mg/dL (70-105) H 02/01/19 06:30 Whole Bld Lactic Acid 0.69 mmol/L (0.60-1.99) 01/25/19 17:00 Calcium 8.6 mg/dL (8.6-10.3) 02/01/19 06:30 Iron 16 ug/dL (38-169) L 01/26/19 15:00 TIBC 358 ug/dL (250-450) 01/26/19 15:00 Iron Saturation 4 % (15-55) L 01/26/19 15:00 Unsaturated IBC 342 ug/dL (111-343) 01/26/19 15:00 Ferritin 8 ng/mL (30-400) L 01/26/19 15:00 Total Bilirubin 0.7 mg/dL (0.3-1.0) 01/25/19 17:00 Direct Bilirubin 0.37 mg/dL (0.0-0.2) H 01/25/19 17:00 AST 40 U/L (13-39) H 01/25/19 17:00 ALT 36 U/L (7-52) 01/25/19 17:00 Alkaline Phosphatase 124 U/L (34-104) H 01/25/19 17:00 Total Protein 6.5 gm/dL (6.0-8.3) 01/25/19 17:00 Albumin 3.3 gm/dL (4.2-5.5) L 01/25/19 17:00 Globulin 3.2 gm/dL 01/25/19 17:00 Albumin/Globulin Ratio 1.0 (1.0-1.8) 01/25/19 17:00 Amylase 32 U/L (29-103) 01/26/19 05:30 Lipase 38 U/L (11-82) 01/25/19 17:00 Vitamin B12 1189 pg/mL (232-1245) 01/26/19 15:00 Folic Acid 12.5 ng/mL (>3.0) 01/26/19 15:00 TSH 0.74 uIU/ml (0.34-5.60) 01/26/19 05:30 Urine Source RANDOM 01/26/19 19:00 Urine Color YELLOW 01/26/19 19:00 Urine Clarity CLEAR (CLEAR) 01/26/19 19:00 Urine pH 5.5 (4.6 - 8.0) 01/26/19 19:00 Ur Specific Jones 1.020 (1.005-1.030) 01/26/19 19:00 Urine Protein NEGATIVE mg/dL (NEGATIVE) 01/26/19 19:00 Urine Glucose (UA) NEGATIVE mg/dL (NEGATIVE) 01/26/19 19:00 Urine Ketones NEGATIVE mg/dL (NEGATIVE) 01/26/19 19:00 Urine Blood NEGATIVE (NEGATIVE) 01/26/19 19:00 Urine Nitrate NEGATIVE (NEGATIVE) 01/26/19 19:00 Urine Bilirubin NEGATIVE (NEGATIVE) 01/26/19 19:00 Urine Urobilinogen 1.0 E.U./dL (0.2 - 1.0) 01/26/19 19:00 Ur Leukocyte Esterase NEGATIVE (NEGATIVE) 01/26/19 19:00 Urine RBC NONE SEEN /hpf (0-5) 01/26/19 19:00 Urine WBC NONE SEEN /hpf (0-5) 01/26/19 19:00 Ur Epithelial Cells NONE SEEN /lpf (FEW) 01/26/19 19:00 Urine Bacteria 1+ /hpf (NONE SEEN) H 01/26/19 19:00 Stool Occult Blood NEGATIVE (NEGATIVE) 01/30/19 14:50 Blood Type O NEGATIVE 01/25/19 20:00 Antibody Screen POSITIVE 01/25/19 20:00 Antibody Identification Anti-D 01/25/19 20:00 Crossmatch See Detail 01/25/19 20:00 - Physical Exam Vitals and I&O: Vital Signs Temp 97.8 F 02/01/19 13:00 Pulse 70 02/01/19 13:00 Resp 18 02/01/19 13:00 BP 140/81 02/01/19 13:00 Pulse Ox 98 02/01/19 13:00 Intake & Output 01/31/19 02/01/19 02/01/19 18:59 06:59 18:59 Intake Total 910 480 Balance 910 480 Weight (lbs) 177 lb 177 lb Intake: Intake, IV Amount 110 Sodium Ferric Gluconate 110 125 mg In Sodium Chloride 0.9% 100 ml @ 100 mls/hr IV Q24HR [facility] Rx#: [id number] Oral 800 480 Other: # Voids 3 4 # Bowel Movements 1 Stool Characteristics Soft Formed Weight Source Bedscale Bedscale Active Medications: Current Medications Albuterol Sulfate (Albuterol 2.5mg/3ml Neb Ud) 2.5 mg HHN Q4HRT PRN PRN Reason: Shortness of Breath Stop: 03/28/19 07:20 Ascorbic Acid (Vitamin C) 500 mg PO BID [facility] Stop: 03/28/19 08:59 Last Admin: 02/01/19 08:20 Dose: 500 mg Folic Acid (Folate) 1 mg PO DAILY [facility] Stop: 03/28/19 08:59 Last Admin: 02/01/19 08:19 Dose: 1 mg Furosemide (Lasix) 40 mg PO BID [facility] Stop: 03/28/19 08:59 Last Admin: 02/01/19 08:20 Dose: 40 mg Dextrose/Sodium Chloride (D5-0.45ns) 1,000 mls @ 50 mls/hr IV .Q20H [facility] Stop: 03/26/19 19:53 Last Admin: 02/01/19 04:57 Dose: 50 mls/hr Ferric Sodium Gluconate Complex 125 mg/ Sodium Chloride 110 mls @ 100 mls/hr IV Q24HR [facility] Stop: 02/04/19 10:59 Last Admin: 02/01/19 11:48 Dose: 100 mls/hr Ibuprofen (Motrin) 600 mg PO Q6H PRN PRN Reason: Pain (Mild) Stop: 03/27/19 20:12 Lactobacillus Rhamnosus (Culturelle 15b) 1 each PO DAILY [facility] Stop: 03/28/19 08:59 Last Admin: 02/01/19 08:19 Dose: 1 each Lactulose (Cephulac) 20 gm PO BID [facility] Stop: 03/28/19 08:59 Last Admin: 02/01/19 08:20 Dose: 20 gm Magnesium Oxide (Mag-Oxide) 400 mg PO DAILY [facility] Stop: 03/28/19 08:59 Last Admin: 02/01/19 08:19 Dose: 400 mg Morphine Sulfate (Morphine) 1 mg IVP Q4HR PRN PRN Reason: Pain (Moderate) Stop: 03/26/19 23:58 Last Admin: 02/01/19 06:34 Dose: 1 mg General: weak HEENT: NC/AT Neck: Supple Lungs: CTAB Cardiovascular: RRR, Normal S1 Abdomen: tender Extremities: clear Neurological: no change Internal Medicine Assmt/Plan - Assessment Assessment: Ventral Hernia. Pancytopenia. History of Hepatitis C with Cirrhosis. COPD. Leukopenia. Iron Deficiency Anemia. Thrombocytopenia. - Plan Plan: Continuation of care. Monitor Labs, monitor hemoglobin levels. Continue present meds as directed. Respiratory treatments and Pulmonary support prn. Supplemental Oxygen prn. Aspiration precaution. Deep suctioning prn. Monitor Diet/Nutritional support. Pain Management. Physical therapy. Occupational therapy. Safety precaution. Supportive care. Fall precaution, frequent nursing rounds, and as needed restraints to prevent fall. Continue collaborating with consulting specialists, case management and nursing team. Will Monitor patient and continue present care management. Nutritional Asmnt/Malnutr-PDOC - Dietary Evaluation Malnutrition Findings (Please click <Entered> for more info): Nutritional Asmnt/Malnutrition Start: 01/26/19 14: 50 Text: Status: Complete Freq: Protocol: Document 01/26/19 14:50 SKYLAR (Rec: 01/26/19 14:53 [email or web address]) Nutritional Asmnt/Malnutrition Patient General Information Nutritional Screening High Risk Diagnosis Pancytopenia, ventral hernia Pertinent Medical Hx/Surgical Hx Hepatitis C, Liver Cirrhosis with Pancytopenia, Leukopenia, Anemia, Thrombocytopenia Subjective Information Pt is a 58-year-old male admitted on 01/25 c/o abdominal pain and cough. Pt had surgery for ventral hernia last March 2018. Pt is currently on NPO status since 01/26 midnight d/t Abdomen CT scan. Per [facility] [place], NPO status may remain for today and waiting for blood transfusion today. Unable to assess usual diet at home since Pt was sleeping at time of visit. Per H&P Report, CT scan showed large ventral hernia, irregular hepatic contour with splenomegaly and ascites consistent with changes of cirrhosis, cardiomegaly with coronary artery and atherosclerotic condition. HT: 511 WT: 177 LB (80.45 kg) BMI: 24.68 (Normal) GI: Ventral Hernia, Abdominal pain, soft, Non-Tender, Large, Round, Distended, Ascitic BM: Not noted I/O: 250/1 (249) Skin: WNL, Warm, Dry, Elastic, Intact, Scar on abdomen, past ventral hernia repair Jet: 20 Diet Order: NPO Estimated Energy Needs: (Adult , CBW) 8275-2520 kcals (25-30 kcals/ kg) 64-80 g Pro (0.8-1.0 g/kg) 9370-0372 ml (25-30 ml/kg) Current Diet Order/ Nutrition Support NPO Pertinent Medications D5-0.45ns 1000mls @50mls/hr IV Q20H Pertinent Labs 01/26: Hgb/Hct 7.8/24.9, Na 134, Glucose 125, Ca 8.5 01/25: Hgb/Hct 7.8/24.3, Cl 108, Glucose 106, Alb 3.3 Nutritional Hx/Data Height 5 ft 11 in Height (Calculated Centimeters) 180.3 Current Weight (lbs) 177 lb Weight (Calculated Kilograms) 80.3 Weight (Calculated Grams) 26659.8 [place] Body Weight 75.3 kg % [place] Body Weight 106 Body Mass Index (BMI) 24.7 Weight Status Approriate GI Symptoms GI Symptoms None Last BM Not noted Skin Integrity/Comment: WNL, Warm, Dry, Elastic, Intact, Scar on abdomen, past ventral hernia repair Jet: 20 Estimated Nutritional Goals BEE in Kcals: Using Current wt Calories/Kcals/Kg 25-30 Kcals Calculated 4967-3165 Protein: Using Current wt Protein g/k.8-1.0 Protein Calculated 64-80 Fluid: ml 4107-3193 ml (25-30 ml/kg) Nutritional Problem 1. Problem Problem Inadequate energy intake Etiology r/t Abdomen CT scan and pending result Signs/Symptoms: aeb NPO status. Malnutrition Related to Morbid Obesity Malnutrition related to morbid obesity No Intervention/Recommendation Comments 1.Continue with NPO status as medically appropriate. Expected Outcomes/Goals Expected Outcomes/Goals 1.Monitor on NPO status, wt, nutrition related labs, and skin integrity. 2.F/U as high risk in 2-3 days , 01/28-01/29 Physician Parameters for PEM Normal Weight % 90% - 110% (Normal)
[2019-02-02 04:54] LABS: HEMATOCRIT 28.9 % (41.0-60); HEMOGLOBIN 9.3 gm/dL (12-16); MEAN CELL VOLUME 74.2 fl (80-99); MEAN CORPUSCULAR HEMOGLOBIN 23.9 pg (26.0-30.0); MEAN CORPUSCULAR HGB CONC 32.2 pg (28.0-36.0); PLATELET COUNT 81 Th/cmm (150-400); WHITE BLOOD COUNT 4.8 Th/cmm (4.8-10.8)
[2019-02-02 05:06] LABS: ANION GAP 9.7 (7.0-16.0); BUN - UREA NITROGEN 20 mg/dL (7-25); CALCIUM SERUM 8.7 mg/dL (8.6-10.3); CARBON DIOXIDE 24.5 mEq/L (21.0-31.0); CHLORIDE 106 mEq/L (98-107); CREATININE - SERUM 0.8 mg/dL (0.7-1.3); GFR AFRICAN-AMERICAN > 60.0 ml/min (>90); GFR NON AFRICAN-AMERICAN > 60.0 ml/min; GLUCOSE 122 mg/dL (70-105); POTASSIUM SERUM 4.2 mEq/L (3.5-5.1); SODIUM SERUM 136 mEq/L (136-145)
[2019-02-02 06:11] LABS: BAND NEUTROPHILE 2 % (0-10); LYMPHOCYTE 18 % (20-50); MONOCYTE 10 % (2-10); NEUTROPHILS 68 % (40-80)
[2019-02-02 06:12] LABS: BASOPHIL 0 % (0-3); EOSINOPHIL 2 % (0-5); PLATELET ESTIMATE DECREASED PLATELETS (NORMAL)
[2019-02-02] MEDS: Lactulose 10 Gm/15 mL 30mL UDC PO SCH ×2 (09:35→10:23)
[2019-02-02] MEDS: Lactobacillus Rhamnosus GG 15 Billion CFU CAP.SPRINK PO SCH (09:35)
[2019-02-02] MEDS ORDERED: SODIUM CHLORIDE 0.9% IV SCH (11:00)
[2019-02-02] MEDS ORDERED: [UNRECOGNIZED DRUG - OTHER] IV SCH (11:00)
--- NOTE | 2019-02-02 14:04 | Internal Medicine Prog Note ---
Internal Medicine Subjective - Subjective Patient is:: awake, verbal Patient Complaints of:: other (ventral hernia.) Per staff patient has:: no adverse event, no episodes of fall Internal Medicine Objective - Results Result Diagrams: 02/02/19 04:30 02/02/19 04:30 Recent Labs: Laboratory Last Values WBC 4.8 Th/cmm (4.8-10.8) 02/02/19 04:30 RBC 3.90 Mil/cmm (4.30-5.70) L 02/02/19 04:30 Hgb 9.3 gm/dL (12-16) L 02/02/19 04:30 Hct 28.9 % (41.0-60) L 02/02/19 04:30 MCV 74.2 fl (80-99) L 02/02/19 04:30 MCH 23.9 pg (26.0-30.0) L 02/02/19 04:30 MCHC Differential 32.2 pg (28.0-36.0) 02/02/19 04:30 RDW 20.0 % (11.5-20.0) 02/02/19 04:30 Plt Count 81 Th/cmm (150-400) L 02/02/19 04:30 MPV 9.1 fl 02/02/19 04:30 Add Manual Diff YES 02/02/19 04:30 Neutrophils % CHILD CUSTODY EVALUATOR 02/02/19 04:30 Band Neutrophils % 2 % (0-10) 02/02/19 04:30 Lymphocytes % CHILD CUSTODY EVALUATOR 02/02/19 04:30 Monocytes % CHILD CUSTODY EVALUATOR 02/02/19 04:30 Eosinophils % CHILD CUSTODY EVALUATOR 02/02/19 04:30 Basophils % CHILD CUSTODY EVALUATOR 02/02/19 04:30 Neutrophils (Manual) 68 % (40-80) 02/02/19 04:30 Lymphocytes 18 % (20-50) L 02/02/19 04:30 Monocytes 10 % (2-10) 02/02/19 04:30 Eosinophils 2 % (0-5) 02/02/19 04:30 Basophils 0 % (0-3) 02/02/19 04:30 Platelet Estimate DECREASED PLATELETS (NORMAL) 02/02/19 04:30 Poikilocytosis 1+ 01/25/19 17:00 Anisocytosis 1+ 01/25/19 17:00 Microcytosis 1+ 02/02/19 04:30 RBC Morph Micro Appear ABNORMAL (NORMAL) 01/25/19 17:00 PT 12.1 SECONDS (9.5-11.5) H 01/25/19 17:00 INR 1.17 (0.5-1.4) 01/25/19 17:00 PTT (Actin FS) 27.1 SECONDS (26.0-38.0) 01/25/19 17:00 Sodium 136 mEq/L (136-145) 02/02/19 04:30 Potassium 4.2 mEq/L (3.5-5.1) 02/02/19 04:30 Chloride 106 mEq/L (98-107) 02/02/19 04:30 Carbon Dioxide 24.5 mEq/L (21.0-31.0) 02/02/19 04:30 Anion Gap 9.7 (7.0-16.0) 02/02/19 04:30 BUN 20 mg/dL (7-25) 02/02/19 04:30 Creatinine 0.8 mg/dL (0.7-1.3) 02/02/19 04:30 Est GFR ( Amer) > 60.0 ml/min (>90) 02/02/19 04:30 Est GFR (Non-Af Amer) > 60.0 ml/min 02/02/19 04:30 BUN/Creatinine Ratio 25.0 02/02/19 04:30 Glucose 122 mg/dL (70-105) H 02/02/19 04:30 Whole Bld Lactic Acid 0.69 mmol/L (0.60-1.99) 01/25/19 17:00 Calcium 8.7 mg/dL (8.6-10.3) 02/02/19 04:30 Iron 16 ug/dL (38-169) L 01/26/19 15:00 TIBC 358 ug/dL (250-450) 01/26/19 15:00 Iron Saturation 4 % (15-55) L 01/26/19 15:00 Unsaturated IBC 342 ug/dL (111-343) 01/26/19 15:00 Ferritin 8 ng/mL (30-400) L 01/26/19 15:00 Total Bilirubin 0.7 mg/dL (0.3-1.0) 01/25/19 17:00 Direct Bilirubin 0.37 mg/dL (0.0-0.2) H 01/25/19 17:00 AST 40 U/L (13-39) H 01/25/19 17:00 ALT 36 U/L (7-52) 01/25/19 17:00 Alkaline Phosphatase 124 U/L (34-104) H 01/25/19 17:00 Total Protein 6.5 gm/dL (6.0-8.3) 01/25/19 17:00 Albumin 3.3 gm/dL (4.2-5.5) L 01/25/19 17:00 Globulin 3.2 gm/dL 01/25/19 17:00 Albumin/Globulin Ratio 1.0 (1.0-1.8) 01/25/19 17:00 Amylase 32 U/L (29-103) 01/26/19 05:30 Lipase 38 U/L (11-82) 01/25/19 17:00 Vitamin B12 1189 pg/mL (232-1245) 01/26/19 15:00 Folic Acid 12.5 ng/mL (>3.0) 01/26/19 15:00 TSH 0.74 uIU/ml (0.34-5.60) 01/26/19 05:30 Urine Source RANDOM 01/26/19 19:00 Urine Color YELLOW 01/26/19 19:00 Urine Clarity CLEAR (CLEAR) 01/26/19 19:00 Urine pH 5.5 (4.6 - 8.0) 01/26/19 19:00 Ur Specific Jet 1.020 (1.005-1.030) 01/26/19 19:00 Urine Protein NEGATIVE mg/dL (NEGATIVE) 01/26/19 19:00 Urine Glucose (UA) NEGATIVE mg/dL (NEGATIVE) 01/26/19 19:00 Urine Ketones NEGATIVE mg/dL (NEGATIVE) 01/26/19 19:00 Urine Blood NEGATIVE (NEGATIVE) 01/26/19 19:00 Urine Nitrate NEGATIVE (NEGATIVE) 01/26/19 19:00 Urine Bilirubin NEGATIVE (NEGATIVE) 01/26/19 19:00 Urine Urobilinogen 1.0 E.U./dL (0.2 - 1.0) 01/26/19 19:00 Ur Leukocyte Esterase NEGATIVE (NEGATIVE) 01/26/19 19:00 Urine RBC NONE SEEN /hpf (0-5) 01/26/19 19:00 Urine WBC NONE SEEN /hpf (0-5) 01/26/19 19:00 Ur Epithelial Cells NONE SEEN /lpf (FEW) 01/26/19 19:00 Urine Bacteria 1+ /hpf (NONE SEEN) H 01/26/19 19:00 Stool Occult Blood NEGATIVE (NEGATIVE) 01/30/19 14:50 Blood Type O NEGATIVE 01/25/19 20:00 Antibody Screen POSITIVE 01/25/19 20:00 Antibody Identification Anti-D 01/25/19 20:00 Crossmatch See Detail 01/25/19 20:00 - Physical Exam Vitals and I&O: Vital Signs Temp 98.6 F 02/02/19 13:00 Pulse 72 02/02/19 13:00 Resp 18 02/02/19 13:00 BP 138/71 02/02/19 13:00 Pulse Ox 99 02/02/19 13:00 Intake & Output 02/01/19 02/02/19 02/02/19 18:59 06:59 18:59 Intake Total 960 800 Balance 960 800 Weight (lbs) 80.286 kg 80.286 kg Intake: Oral 960 800 Other: # Voids 3 4 Weight Source Bedscale Bedscale Active Medications: Current Medications Albuterol Sulfate (Albuterol 2.5mg/3ml Neb Ud) 2.5 mg HHN Q4HRT PRN PRN Reason: Shortness of Breath Stop: 03/28/19 07:20 Ascorbic Acid (Vitamin C) 500 mg PO BID [facility] Stop: 03/28/19 08:59 Last Admin: 02/02/19 09:34 Dose: 500 mg Folic Acid (Folate) 1 mg PO DAILY [facility] Stop: 03/28/19 08:59 Last Admin: 02/02/19 09:35 Dose: 1 mg Furosemide (Lasix) 40 mg PO BID [facility] Stop: 03/28/19 08:59 Last Admin: 02/02/19 09:35 Dose: 40 mg Dextrose/Sodium Chloride (D5-0.45ns) 1,000 mls @ 50 mls/hr IV .Q20H [facility] Stop: 03/26/19 19:53 Last Admin: 02/01/19 04:57 Dose: 50 mls/hr Miscellaneous 1 vial/ Sodium (Chloride) 100 mls @ 100 mls/hr IV Q24H [facility] Stop: 02/04/19 10:59 Ibuprofen (Motrin) 600 mg PO Q6H PRN PRN Reason: Pain (Mild) Stop: 03/27/19 20:12 Lactobacillus Rhamnosus (Culturelle 15b) 1 each PO DAILY [facility] Stop: 03/28/19 08:59 Last Admin: 02/02/19 09:35 Dose: 1 each Lactulose (Cephulac) 20 gm PO BID [facility] Stop: 03/28/19 08:59 Last Admin: 02/02/19 10:23 Dose: Not Given Magnesium Oxide (Mag-Oxide) 400 mg PO DAILY [facility] Stop: 03/28/19 08:59 Last Admin: 02/02/19 09:35 Dose: 400 mg Morphine Sulfate (Morphine) 1 mg IVP Q4HR PRN PRN Reason: Pain (Moderate) Stop: 03/26/19 23:58 Last Admin: 02/01/19 20:29 Dose: 1 mg Physical Exam: Patient was admitted with Ventral hernia, Patient is high risk for surgery, Iron Deficiency Anemia. Remains very weak. General: weak HEENT: NC/AT Neck: Supple Lungs: CTAB Cardiovascular: RRR, Normal S1 Abdomen: tender Extremities: clear Neurological: no change Internal Medicine Assmt/Plan - Assessment Assessment: Ventral Hernia. Pancytopenia. History of Hepatitis C with Cirrhosis. COPD. Leukopenia. Iron Deficiency Anemia. Thrombocytopenia. - Plan Plan: Blood Transfusion complete. Monitor Labs, monitor hemoglobin levels. Continue present meds as directed. Respiratory treatments and Pulmonary support prn. Supplemental Oxygen prn. Aspiration precaution. Deep suctioning prn. Monitor Diet/Nutritional support. Pain Management. Physical therapy. Occupational therapy. Safety precaution. Supportive care. Fall precaution, frequent nursing rounds, and as needed restraints to prevent fall. Continue collaborating with consulting specialists, case management and nursing team. Will Monitor patient and continue present care management. Nutritional Asmnt/Malnutr-PDOC - Dietary Evaluation Malnutrition Findings (Please click <Entered> for more info): Nutritional Asmnt/Malnutrition Start: 01/26/19 14: 50 Text: Status: Complete Freq: Protocol: Document 01/26/19 14:50 SKYLAR (Rec: 01/26/19 14:53 SKYLAR [id number]) Nutritional Asmnt/Malnutrition Patient General Information Nutritional Screening High Risk Diagnosis Pancytopenia, ventral hernia Pertinent Medical Hx/Surgical Hx Hepatitis C, Liver Cirrhosis with Pancytopenia, Leukopenia, Anemia, Thrombocytopenia Subjective Information Pt is a 58-year-old male admitted on 01/25 c/o abdominal pain and cough. Pt had surgery for ventral hernia last March 2018. Pt is currently on NPO status since 01/26 midnight d/t Abdomen CT scan. Per [facility] [place], NPO status may remain for today and waiting for blood transfusion today. Unable to assess usual diet at home since Pt was sleeping at time of visit. Per H&P Report, CT scan showed large ventral hernia, irregular hepatic contour with splenomegaly and ascites consistent with changes of cirrhosis, cardiomegaly with coronary artery and atherosclerotic condition. HT: 511 WT: 177 LB (80.45 kg) BMI: 24.68 (Normal) GI: Ventral Hernia, Abdominal pain, soft, Non-Tender, Large, Round, Distended, Ascitic BM: Not noted I/O: 250/1 (249) Skin: WNL, Warm, Dry, Elastic, Intact, Scar on abdomen, past ventral hernia repair Jet: 20 Diet Order: NPO Estimated Energy Needs: (Adult , CBW) 5629-9576 kcals (25-30 kcals/ kg) 64-80 g Pro (0.8-1.0 g/kg) 2129-1906 ml (25-30 ml/kg) Current Diet Order/ Nutrition Support NPO Pertinent Medications D5-0.45ns 1000mls @50mls/hr IV Q20H Pertinent Labs 01/26: Hgb/Hct 7.8/24.9, Na 134, Glucose 125, Ca 8.5 01/25: Hgb/Hct 7.8/24.3, Cl 108, Glucose 106, Alb 3.3 Nutritional Hx/Data Height 1.8 m Height (Calculated Centimeters) 180.3 Current Weight (lbs) 80.286 kg Weight (Calculated Kilograms) 80.3 Weight (Calculated Grams) 99769.8 [place] Body Weight 75.3 kg % [place] Body Weight 106 Body Mass Index (BMI) 24.7 Weight Status Approriate GI Symptoms GI Symptoms None Last BM Not noted Skin Integrity/Comment: WNL, Warm, Dry, Elastic, Intact, Scar on abdomen, past ventral hernia repair Jet: 20 Estimated Nutritional Goals BEE in Kcals: Using Current wt Calories/Kcals/Kg 25-30 Kcals Calculated 9438-8520 Protein: Using Current wt Protein g/k.8-1.0 Protein Calculated 64-80 Fluid: ml 4268-5149 ml (25-30 ml/kg) Nutritional Problem 1. Problem Problem Inadequate energy intake Etiology r/t Abdomen CT scan and pending result Signs/Symptoms: aeb NPO status. Malnutrition Related to Morbid Obesity Malnutrition related to morbid obesity No Intervention/Recommendation Comments 1.Continue with NPO status as medically appropriate. Expected Outcomes/Goals Expected Outcomes/Goals 1.Monitor on NPO status, wt, nutrition related labs, and skin integrity. 2.F/U as high risk in 2-3 days , 01/28-01/29 Physician Parameters for PEM Normal Weight % 90% - 110% (Normal)
--- NOTE | 2019-02-02 14:25 | General Progress Note ---
Subjective - Review of Systems Service Date: 02/02/19 Subjective: better Objective - Results Result Diagrams: 02/02/19 04:30 02/02/19 04:30 Recent Labs: Laboratory Last Values WBC 4.8 Th/cmm (4.8-10.8) 02/02/19 04:30 RBC 3.90 Mil/cmm (4.30-5.70) L 02/02/19 04:30 Hgb 9.3 gm/dL (12-16) L 02/02/19 04:30 Hct 28.9 % (41.0-60) L 02/02/19 04:30 MCV 74.2 fl (80-99) L 02/02/19 04:30 MCH 23.9 pg (26.0-30.0) L 02/02/19 04:30 MCHC Differential 32.2 pg (28.0-36.0) 02/02/19 04:30 RDW 20.0 % (11.5-20.0) 02/02/19 04:30 Plt Count 81 Th/cmm (150-400) L 02/02/19 04:30 MPV 9.1 fl 02/02/19 04:30 Add Manual Diff YES 02/02/19 04:30 Neutrophils % LAP GRINDER 02/02/19 04:30 Band Neutrophils % 2 % (0-10) 02/02/19 04:30 Lymphocytes % LAP GRINDER 02/02/19 04:30 Monocytes % LAP GRINDER 02/02/19 04:30 Eosinophils % LAP GRINDER 02/02/19 04:30 Basophils % LAP GRINDER 02/02/19 04:30 Neutrophils (Manual) 68 % (40-80) 02/02/19 04:30 Lymphocytes 18 % (20-50) L 02/02/19 04:30 Monocytes 10 % (2-10) 02/02/19 04:30 Eosinophils 2 % (0-5) 02/02/19 04:30 Basophils 0 % (0-3) 02/02/19 04:30 Platelet Estimate DECREASED PLATELETS (NORMAL) 02/02/19 04:30 Poikilocytosis 1+ 01/25/19 17:00 Anisocytosis 1+ 01/25/19 17:00 Microcytosis 1+ 02/02/19 04:30 RBC Morph Micro Appear ABNORMAL (NORMAL) 01/25/19 17:00 PT 12.1 SECONDS (9.5-11.5) H 01/25/19 17:00 INR 1.17 (0.5-1.4) 01/25/19 17:00 PTT (Actin FS) 27.1 SECONDS (26.0-38.0) 01/25/19 17:00 Sodium 136 mEq/L (136-145) 02/02/19 04:30 Potassium 4.2 mEq/L (3.5-5.1) 02/02/19 04:30 Chloride 106 mEq/L (98-107) 02/02/19 04:30 Carbon Dioxide 24.5 mEq/L (21.0-31.0) 02/02/19 04:30 Anion Gap 9.7 (7.0-16.0) 02/02/19 04:30 BUN 20 mg/dL (7-25) 02/02/19 04:30 Creatinine 0.8 mg/dL (0.7-1.3) 02/02/19 04:30 Est GFR ( Amer) > 60.0 ml/min (>90) 02/02/19 04:30 Est GFR (Non-Af Amer) > 60.0 ml/min 02/02/19 04:30 BUN/Creatinine Ratio 25.0 02/02/19 04:30 Glucose 122 mg/dL (70-105) H 02/02/19 04:30 Whole Bld Lactic Acid 0.69 mmol/L (0.60-1.99) 01/25/19 17:00 Calcium 8.7 mg/dL (8.6-10.3) 02/02/19 04:30 Iron 16 ug/dL (38-169) L 01/26/19 15:00 TIBC 358 ug/dL (250-450) 01/26/19 15:00 Iron Saturation 4 % (15-55) L 01/26/19 15:00 Unsaturated IBC 342 ug/dL (111-343) 01/26/19 15:00 Ferritin 8 ng/mL (30-400) L 01/26/19 15:00 Total Bilirubin 0.7 mg/dL (0.3-1.0) 01/25/19 17:00 Direct Bilirubin 0.37 mg/dL (0.0-0.2) H 01/25/19 17:00 AST 40 U/L (13-39) H 01/25/19 17:00 ALT 36 U/L (7-52) 01/25/19 17:00 Alkaline Phosphatase 124 U/L (34-104) H 01/25/19 17:00 Total Protein 6.5 gm/dL (6.0-8.3) 01/25/19 17:00 Albumin 3.3 gm/dL (4.2-5.5) L 01/25/19 17:00 Globulin 3.2 gm/dL 01/25/19 17:00 Albumin/Globulin Ratio 1.0 (1.0-1.8) 01/25/19 17:00 Amylase 32 U/L (29-103) 01/26/19 05:30 Lipase 38 U/L (11-82) 01/25/19 17:00 Vitamin B12 1189 pg/mL (232-1245) 01/26/19 15:00 Folic Acid 12.5 ng/mL (>3.0) 01/26/19 15:00 TSH 0.74 uIU/ml (0.34-5.60) 01/26/19 05:30 Urine Source RANDOM 01/26/19 19:00 Urine Color YELLOW 01/26/19 19:00 Urine Clarity CLEAR (CLEAR) 01/26/19 19:00 Urine pH 5.5 (4.6 - 8.0) 01/26/19 19:[address] 1.020 (1.005-1.030) 01/26/19 19:00 Urine Protein NEGATIVE mg/dL (NEGATIVE) 01/26/19 19:00 Urine Glucose (UA) NEGATIVE mg/dL (NEGATIVE) 01/26/19 19:00 Urine Ketones NEGATIVE mg/dL (NEGATIVE) 01/26/19 19:00 Urine Blood NEGATIVE (NEGATIVE) 01/26/19 19:00 Urine Nitrate NEGATIVE (NEGATIVE) 01/26/19 19:00 Urine Bilirubin NEGATIVE (NEGATIVE) 01/26/19 19:00 Urine Urobilinogen 1.0 E.U./dL (0.2 - 1.0) 01/26/19 19:00 Ur Leukocyte Esterase NEGATIVE (NEGATIVE) 01/26/19 19:00 Urine RBC NONE SEEN /hpf (0-5) 01/26/19 19:00 Urine WBC NONE SEEN /hpf (0-5) 01/26/19 19:00 Ur Epithelial Cells NONE SEEN /lpf (FEW) 01/26/19 19:00 Urine Bacteria 1+ /hpf (NONE SEEN) H 01/26/19 19:00 Stool Occult Blood NEGATIVE (NEGATIVE) 01/30/19 14:50 Blood Type O NEGATIVE 01/25/19 20:00 Antibody Screen POSITIVE 01/25/19 20:00 Antibody Identification Anti-D 01/25/19 20:00 Crossmatch See Detail 01/25/19 20:00 - Physical Exam Vitals and I&O: Vital Signs Temp 98.6 F 02/02/19 13:00 Pulse 72 02/02/19 13:00 Resp 18 02/02/19 13:00 BP 138/71 02/02/19 13:00 Pulse Ox 99 02/02/19 13:00 Intake & Output 02/01/19 02/02/19 02/02/19 18:59 06:59 18:59 Intake Total 960 800 Balance 960 800 Weight (lbs) 80.286 kg 80.286 kg Intake: Oral 960 800 Other: # Voids 3 4 Weight Source Bedscale Bedscale Active Medications: Current Medications Albuterol Sulfate (Albuterol 2.5mg/3ml Neb Ud) 2.5 mg HHN Q4HRT PRN PRN Reason: Shortness of Breath Stop: 03/28/19 07:20 Ascorbic Acid (Vitamin C) 500 mg PO BID GURPREET Stop: 03/28/19 08:59 Last Admin: 02/02/19 09:34 Dose: 500 mg Folic Acid (Folate) 1 mg PO DAILY [facility]UR[facility] Stop: 03/28/19 08:59 Last Admin: 02/02/19 09:35 Dose: 1 mg Furosemide (Lasix) 40 mg PO BID GURPREET Stop: 03/28/19 08:59 Last Admin: 02/02/19 09:35 Dose: 40 mg Dextrose/Sodium Chloride (D5-0.45ns) 1,000 mls @ 50 mls/hr IV .Q20H GURPRE[facility] Stop: 03/26/19 19:53 Last Admin: 02/01/19 04:57 Dose: 50 mls/hr Miscellaneous 1 vial/ Sodium (Chloride) 100 mls @ 100 mls/hr IV Q24H [facility]UR[facility] Stop: 08/18/19 10:59 Ibuprofen (Motrin) 600 mg PO Q6H PRN PRN Reason: Pain (Mild) Stop: 03/27/19 20:12 Lactobacillus Rhamnosus (Culturelle 15b) 1 each PO DAILY [facility] Stop: 03/28/19 08:59 Last Admin: 02/02/19 09:35 Dose: 1 each Lactulose (Cephulac) 20 gm PO BID [facility] Stop: 03/28/19 08:59 Last Admin: 02/02/19 10:23 Dose: Not Given Magnesium Oxide (Mag-Oxide) 400 mg PO DAILY [facility] Stop: 03/28/19 08:59 Last Admin: 02/02/19 09:35 Dose: 400 mg Morphine Sulfate (Morphine) 1 mg IVP Q4HR PRN PRN Reason: Pain (Moderate) Stop: 03/26/19 23:58 Last Admin: 02/01/19 20:29 Dose: 1 mg General: Alert, Oriented x3 HEENT: Atraumatic Neck: Supple Cardiovascular: Regular rate Abdomen: Bowel sounds, Soft, Other (ventral hernia), no Tender, no Hepatomegaly , no Splenomegaly, no Rebound, no Mass, no Guarding Psych/Mental Status: Mental status NL Assessment/Plan - Assessment Assessment: Pancytopenia most likely secondary to chronic hepatitis C and cirrhosis associated with splenomegaly. The CT scan of the abdomen without contrast was noted reporting ____ with splenomegaly and ascites consistent with cirrhosis. I will obtain the anemia workup. The patient was already transfused. He is high risk for bleeding from the GI tract from esophageal or gastric varices or other etiologies. No additional transfusion is needed. The patient is high risk for surgery. 02/02: iron deficiency anemia. stool OB positive. completing iv ferrlecit. cytopenia better from splenic sequestration . monitor cbc as outpatient. Nutritional Asmnt/Malnutr-PDOC - Dietary Evaluation Malnutrition Findings (Please click <Entered> for more info): Nutritional Asmnt/Malnutrition Start: 01/26/19 14: 50 Text: Status: Complete Freq: Protocol: Document 01/26/19 14:50 SKYLAR (Rec: 01/26/19 14:53 [id number]) Nutritional Asmnt/Malnutrition Patient General Information Nutritional Screening High Risk Diagnosis Pancytopenia, ventral hernia Pertinent Medical Hx/Surgical Hx Hepatitis C, Liver Cirrhosis with Pancytopenia, Leukopenia, Anemia, Thrombocytopenia Subjective Information Pt is a 58-year-old male admitted on 01/25 c/o abdominal pain and cough. Pt had surgery for ventral hernia last March 2018. Pt is currently on NPO status since 01/26 midnight d/t Abdomen CT scan. Per [facility] [place], NPO status may remain for today and waiting for blood transfusion today. Unable to assess usual diet at home since Pt was sleeping at time of visit. Per H&P Report, CT scan showed large ventral hernia, irregular hepatic contour with splenomegaly and ascites consistent with changes of cirrhosis, cardiomegaly with coronary artery and atherosclerotic condition. HT: 511 WT: 177 LB (80.45 kg) BMI: 24.68 (Normal) GI: Ventral Hernia, Abdominal pain, soft, Non-Tender, Large, Round, Distended, Ascitic BM: Not noted I/O: 250/1 (249) Skin: WNL, Warm, Dry, Elastic, Intact, Scar on abdomen, past ventral hernia repair Jet: 20 Diet Order: NPO Estimated Energy Needs: (Adult , CBW) 0209-2568 kcals (25-30 kcals/ kg) 64-80 g Pro (0.8-1.0 g/kg) 0778-6776 ml (25-30 ml/kg) Current Diet Order/ Nutrition Support NPO Pertinent Medications D5-0.45ns 1000mls @50mls/hr IV Q20H Pertinent Labs 01/26: Hgb/Hct 7.8/24.9, Na 134, Glucose 125, Ca 8.5 01/25: Hgb/Hct 7.8/24.3, Cl 108, Glucose 106, Alb 3.3 Nutritional Hx/Data Height 1.8 m Height (Calculated Centimeters) 180.3 Current Weight (lbs) 80.286 kg Weight (Calculated Kilograms) 80.3 Weight (Calculated Grams) 39347.8 [place] Body Weight 75.3 kg % [place] Body Weight 106 Body Mass Index (BMI) 24.7 Weight Status Approriate GI Symptoms GI Symptoms None Last BM Not noted Skin Integrity/Comment: WNL, Warm, Dry, Elastic, Intact, Scar on abdomen, past ventral hernia repair Jet: 20 Estimated Nutritional Goals BEE in Kcals: Using Current wt Calories/Kcals/Kg 25-30 Kcals Calculated 0572-2843 Protein: Using Current wt Protein g/k.8-1.0 Protein Calculated 64-80 Fluid: ml 3348-6548 ml (25-30 ml/kg) Nutritional Problem 1. Problem Problem Inadequate energy intake Etiology r/t Abdomen CT scan and pending result Signs/Symptoms: aeb NPO status. Malnutrition Related to Morbid Obesity Malnutrition related to morbid obesity No Intervention/Recommendation Comments 1.Continue with NPO status as medically appropriate. Expected Outcomes/Goals Expected Outcomes/Goals 1.Monitor on NPO status, wt, nutrition related labs, and skin integrity. 2.F/U as high risk in 2-3 days , 01/28-01/29 Physician Parameters for PEM Normal Weight % 90% - 110% (Normal)
== END 2019-02-02 14:20 | DRG 433 ==
LOC: ER 15:55 → MSI 18:00
PROVIDERS: ADMIT Internal Medicine; ATTEND Internal Medicine
PROC: 30233N1 Transfusion of Nonautologous Red Blood Cells into Peripheral Vein, Percutaneous Approach (ICD-10-PCS; principal; 2019-01-26)
DX: K70.31 Alcoholic cirrhosis of liver with ascites (principal); D61.818 Other pancytopenia; K43.9 Ventral hernia without obstruction or gangrene; B19.20 Unspecified viral hepatitis C without hepatic coma; D64.9 Anemia, unspecified; D69.6 Thrombocytopenia, unspecified; J44.9 Chronic obstructive pulmonary disease, unspecified; F10.20 Alcohol dependence, uncomplicated; R16.1 Splenomegaly, not elsewhere classified
CPT/HCPCS: 36415-UA; 71045-TC; 80048-TC; 80076-TC; 81001-TC; 82150-TC; 82270-TC; 82607-90; 82728-90; 82746-90; 83540-90; 83550-90; 83605; 83690-TC; 84443-TC; 85007-TC; 85025-TC; 85610-TC; 85730-TC; 86850-TC; 86870-TC; 86900-TC; 86901-TC; 86922-TC; J1200; J2270; J2916; J7030; J7042; P9016; Z7610